=== PATIENT | female | born 1950 | race Caucasian/White ===

== ENCOUNTER 2016-10-03 09:12 | Emergency (ER) | payer MEDICARE, BC ==
[2016-10-03] MEDS: Sodium Chloride 0.9% 10 ML Syringe FLUSH PRN ×2 (09:30→10:46)
[2016-10-03] MEDS ORDERED: Morphine 2 MG/ML Syringe ONE ×2 (09:51→10:42)
[2016-10-03] MEDS: Morphine 2 MG/ML Syringe IVPUSH ONE ×2 (09:51→10:47)
[2016-10-03 10:34] VITALS: BP 161/79
[2016-10-03] MEDS ORDERED: Morphine 2 MG/ML Syringe IVPUSH ONE (10:44)
--- NOTE | 2016-10-04 07:26 | CR ---
DATE OF SERVICE: 10/03/16 CLINICAL DATA: Right hip pain after fall. PELVIS AND RIGHT HIP There is diffuse osteopenia. There are moderate osteoarthritic changes involving the hip joints bilaterally. There are mild degenerative changes involving the SI joints and symphysis pubis. No acute abnormalities. No focal lytic or blastic bone lesions. [id number] [facility]
--- NOTE | 2016-10-04 07:28 | CR ---
DATE OF SERVICE: 10/03/16 CLINICAL DATA: Right hip pain after fall. LUMBAR SPINE No priors. There is mild left-convexity rotoscoliosis of the mid lumbar spine. The vertebral bodies are of average height and in good alignment. No acute fracture or dislocation. No focal lytic or blastic bone lesions. There are disk margin spurs throughout the lumbar spine with disk space narrowing diffusely. There is facet joint hypertrophy in the mid and lower lumbar spine. There is calcification of the abdominal aorta. [id number] [facility]
--- NOTE | 2016-10-06 17:16 | EDM.PDOC ---
ED HPI GENERAL MEDICAL PROBLEM - General Chief Complaint: Lower Extremity Injury/Pain Stated Complaint: R hip pain Time Seen by Provider: 10/03/16 10:15 Source of Information: Reports: Patient, Family History Limitations: Reports: No Limitations - History of Present Illness INITIAL COMMENTS - FREE TEXT/NARRATIVE: This is a 66yo F who fell at her home and hurt her right hip and lower back area. Patient states she has a few scrapes but otherwise only has the lower back pain and right hip pain. Denies hitting her head. Onset: Sudden Location: Reports: Back, Pelvis, Lower Extremity, Right Severity: Mild Improves with: Reports: None Worsens with: Reports: Movement Associated Symptoms: Reports: No Other Symptoms - Related Data Allergies Allergy/AdvReac Type Severity Reaction Status Date / Time acetaminophen [From Percocet] Allergy Hives Verified 06/21/14 08:14 oxycodone HCl [From Percocet] Allergy Hives Verified 06/21/14 08:14 Home Meds: Home Meds Losartan Potassium 50 mg PO BID 06/21/14 [History] Metoprolol Tartrate 50 mg PO BID 06/21/14 [History] Simvastatin [Simvastatin] 20 mg PO BEDTIME 06/21/14 [History] Omeprazole Magnesium [Prilosec Otc] 20 mg PO ASDIRECTED PRN 08/09/15 [History] cloNIDine [Catapres] 0.1 mg PO Q12HR #60 tablet 08/09/15 [Rx] Past Medical History HEENT History: Reports: Epistaxis Cardiovascular History: Reports: Other (See Below) Other Cardiovascular History: Stents at age 46 Gastrointestinal History: Reports: Other (See Below) Musculoskeletal History: Reports: Arthritis Hematologic History: Reports: Anemia Social & Family History - Tobacco Use Smoking Status *Q: Never Smoker Second Hand Smoke Exposure: Yes - Alcohol Use Days Per Week of Alcohol Use: 2 Number of Drinks Per Day: 6 Total Drinks Per Week: 12 - Recreational Drug Use Recreational Drug Use: No ED ROS GENERAL - Review of Systems Review Of Systems: ROS reveals no pertinent complaints other than HPI. ED EXAM, GENERAL - Physical Exam Exam: See Below Exam Limited By: No Limitations General Appearance: Alert, WD/WN, Mild Distress Eye Exam: Bilateral Eye: PERRL Ears: Normal External Exam Nose: Normal Inspection Throat/Mouth: Normal Inspection Head: Atraumatic, Normocephalic Neck: Normal Inspection Respiratory/Chest: No Respiratory Distress, Lungs Clear Cardiovascular: Normal Peripheral Pulses, Regular Rate, Rhythm Peripheral Pulses: 2+: Dorsalis Pedis (L), Dorsalis Pedis (R) GI/Abdominal: Normal Bowel Sounds, Soft, Non-Tender Extremities: Normal Inspection, Normal Range of Motion, No Pedal Edema, Normal Capillary Refill, Leg Pain, Other (right lower back pain and right hip pain) Neurological: Alert, Oriented, CN II-XII Intact Course - Vital Signs Last Recorded V/S: Last Vital Signs Temp 36.1 C 10/03/16 10:33 Pulse 72 10/03/16 10:33 Resp 20 10/03/16 10:33 BP 161/79 H 10/03/16 10:33 Pulse Ox 99 10/03/16 10:33 - Orders/Labs/Meds Meds: Medications Discontinued Medications Generic Name Dose Route Start Last Admin Trade Name Freq PRN Reason Stop Dose Admin Morphine Sulfate 3 mg 10/03/16 09:42 10/03/16 10:47 Morphine IVPUSH 10/03/16 09:43 3 mg ONETIME ONE Administration Morphine Sulfate Confirm 10/03/16 09:51 10/03/16 10:49 Morphine Administered 10/03/16 09:52 Not Given Dose 4 mg .ROUTE .STK-MED ONE Morphine Sulfate Confirm 10/03/16 10:42 10/03/16 10:49 Morphine Administered 10/03/16 10:43 Not Given Dose 4 mg .ROUTE .STK-MED ONE Morphine Sulfate 3 mg 10/03/16 10:44 10/03/16 10:50 Morphine IVPUSH 10/03/16 10:45 Not Given ONETIME ONE Sodium Chloride 10 ml 10/03/16 09:42 10/03/16 10:46 Saline Flush FLUSH 10 ml ASDIRECTED PRN Administration Keep Vein Open Departure - Departure Time of Disposition: 12:00 Disposition: Home, Self-Care 01 Condition: Good Clinical Impression: Contusion Qualifiers: Encounter type: initial encounter Contusion area: hip Laterality: right Qualified Code(s): S70.01XA - Contusion of right hip, initial encounter Back pain Qualifiers: Back pain location: low back pain Chronicity: acute - Discharge Information Referrals: PCP,None [Primary Care Provider] - Forms: ED Department Discharge Additional Instructions: Take pain meds and muscle relaxer as prescribed. Weight bearing as tolerated. Use home crutches as needed for pain - Problem List Review Problem List Initiated/Reviewed/Updated: Yes - Assessment/Plan Plan: Counseled on supportive and conservative care and f/u. Discussed close monitoring and rest and f/u in clinic as needed.
== END 2016-10-03 11:34 | disposition home or self-care (01) ==
LOC: LB.ED 09:12
DX: S70.01XA Contusion of right hip, initial encounter (principal); M19.90 Unspecified osteoarthritis, unspecified site; Z95.5 Presence of coronary angioplasty implant and graft; Z86.2 Personal history of diseases of the blood and blood-forming organs and certain disorders involving the immune mechanism; Z88.6 Allergy status to analgesic agent; W19.XXXA Unspecified fall, initial encounter; Y92.009 Unspecified place in unspecified non-institutional (private) residence as the place of occurrence of the external cause
CPT/HCPCS: 72100; 73502; 96374; 99283; J2270; J7050

== ENCOUNTER 2017-06-08 07:29 | Day surgery (SDC) | payer MEDICARE, BC ==
[~2017-06-08 07:29] MED LIST: Metoclopramide 10 MG/2 ML SDV IV PRN; Sodium Chloride 0.9% 1,000 ML IV SCH; Sodium Chloride 0.9% 10 ML Syringe FLUSH PRN
[2017-06-08 13:28] VITALS: BP 153/77
--- NOTE | 2017-06-08 18:05 | OR ---
DATE OF OPERATION: 06/08/2017 PREOPERATIVE DIAGNOSIS: Screening colonoscopy. POSTOPERATIVE DIAGNOSIS: 1. Moderate to severe sigmoid diverticulosis. 2. Otherwise normal colonoscopy. OPERATION: Screening colonoscopy. COMPLICATIONS: None. DRAINS: None. SPECIMENS: None. ESTIMATED BLOOD LOSS: Zero. ANESTHESIA: General propofol anesthesia. INDICATION: Ms. Hickman is a 66-year-old female here for a screening colonoscopy. She is of average risk and is currently asymptomatic. The above-mentioned procedure was explained. The risks, benefits, and complications were explained. The patient understood and agreed and was brought to the operating room. DESCRIPTION OF PROCEDURE: The patient was brought to the operating room, placed in the left lateral decubitus position on the operating room table. Satisfactory general propofol anesthesia was administered. We began by performing a rectal examination which was within normal limits. I then placed the endoscope by finger introduction into the rectum and subsequently advanced to the level of the cecum. This proved to be quite difficult due to tortuosity and external compression of the colon by her body habitus. However, with manipulation in the supine position and we were able to pass the endoscope around to the cecum and this was identified by the appendiceal orifice, the cecal strap as well as the ileocecal valve. Next, careful evaluation of the mucosa was performed on withdrawal. There were no telangiectasias, no polyps, or no neoplastic growths. There was moderate to severe diverticulosis involving the distal descending colon up to the rectosigmoid junction. There was no active bleeding identified. Next, we performed a retroflexion maneuver within the rectum and this was within normal limits. The colon was decompressed and the endoscope was withdrawn. The patient tolerated the procedure well. There were no complications. Instrument count was correct. The patient was awoken in the OR and taken to the PACU for recovery. Recommend a followup colonoscopy in 5-to-10 years. GOMEZ/ALEKSANDAR /[id number]
== END 2017-06-08 11:30 | disposition home or self-care (01) ==
LOC: LB.SDS 07:29
PROVIDERS: ATTEND Surgery
DX: Z12.11 Encounter for screening for malignant neoplasm of colon (principal); K57.30 Diverticulosis of large intestine without perforation or abscess without bleeding; I10 Essential (primary) hypertension; Z79.899 Other long term (current) drug therapy
CPT/HCPCS: G0121; J2765; J7040; J7030

== ENCOUNTER → 2018-12-19 | Outpatient (CLI) | payer MEDICARE, OTHER ==
--- NOTE | 2018-12-22 16:49 | US ---
DATE OF SERVICE: 12/19/18 CLINICAL DATA: Other abnormal and inconclusive findings on diagnostic imaging of breast RIGHT BREAST ULTRASOUND: A targeted exam was performed. No masses. No abnormal fluid collections. No foci of suspicious echogenicity. No suspicious calcifications. IMPRESSION: Negative right breast ultrasound. ACR 1 - Negative Ultrasound. [id number] [facility]
--- NOTE | 2018-12-22 16:54 | MY ---
DATE OF SERVICE: 12/19/18 CLINICAL DATA: Other abnormal and inconclusive findings on diagnostic imaging of breast ADDITIONAL VIEWS RIGHT BREAST: A focal spot compression craniocaudal view of the right breast and a focal spot compression mediolateral oblique view were obtained. The new nodular density in the upper outer portion of the right breast largely dissipates with focal spot compression. No further work-up is indicated at this time. A 6 month follow-up mammogram of the right breast is recommended to confirm stability. ACR 3 - Probably benign Mammogram - Short interval follow-up suggested. [id number] [facility]
== END ==
LOC: LB.MAM 09:33
PROVIDERS: ATTEND Nurse Practitioner Family
DX: R92.8 Other abnormal and inconclusive findings on diagnostic imaging of breast (principal)
CPT/HCPCS: 76641-RT; 77065-RT

== ENCOUNTER 2019-09-18 13:00 | Observation (INO) | payer MEDICARE, OTHER ==
[2019-09-18] MEDS ORDERED: Sodium Chloride 0.9% 1,000 ML IV SCH (15:30)
[2019-09-18] MEDS ORDERED: Sodium Chloride 0.45% with KCl 1,000 ML IV SCH (15:30)
[2019-09-18] MEDS ORDERED: Acetaminophen 500 MG Tab ONE (16:00)
[2019-09-18] MEDS: Acetaminophen 325 MG Tab PO PRN ×2 (16:00→21:19)
[2019-09-18] MEDS ORDERED: Miconazole 2% Crm 30 GM Tube TOP SCH (21:30)
[2019-09-19 09:05] VITALS: BP 153/71; PULSE 110
--- NOTE | 2019-09-19 11:44 | PCM.PN ---
- General Info Date of Service: 09/18/19 Admission Dx/Problem (Free Text): Nalini presents from clinic for IV fluids due to her continued UTI. She was started on keflex, then called 3 days later with culture results and was switched to cefdinir. She has taken 2 doses of cefdinir. She is agreeable to obs admission overnight for hydration. Plan will be to DC in the AM. - Review of Systems General: Reports: No Symptoms HEENT: Reports: No Symptoms Pulmonary: Reports: No Symptoms Cardiovascular: Reports: No Symptoms Gastrointestinal: Reports: No Symptoms Genitourinary: Reports: No Symptoms (patient denies any pain), Retention Skin: Reports: No Symptoms Neurological: Reports: No Symptoms - Patient Data Vitals - Most Recent: Last Vital Signs Temp 97.2 F 09/19/19 09:00 Pulse 110 H 09/19/19 09:00 Resp 16 09/19/19 09:00 BP 153/71 H 09/19/19 09:00 Pulse Ox 99 09/19/19 09:00 I&O - Last 24 Hours: Intake & Output 09/18/19 09/19/19 09/19/19 22:59 06:59 14:59 Intake Total 60 1934 Output Total 200 1600 Balance -140 334 Lab Results Last 24 Hours: Laboratory Results - last 24 hr 09/18/19 09/18/19 09/18/19 Range/Units 13:04 13:57 13:57 WBC 5.7 (4.0-11.0) K/uL RBC 3.45 L (3.80-5.80) M/uL Hgb 10.0 L (11.5-16.5) g/dL Hct 30.2 L (37.0-47.0) % MCV 88 (76-96) fL MCH 29.0 (27.0-32.0) pg MCHC 33.1 (31.0-35.0) g/dL RDW 14.7 (11.0-16.0) % Plt Count 289 D (150-500) K/uL MPV 9.1 (6.0-10.0) fL Neut % (Auto) 65.9 (45.0-70.0) % Lymph % (Auto) 19.8 L (20.0-40.0) % [place] % (Auto) 13.5 H (3.0-10.0) % Eos % (Auto) 0.4 L (1.0-5.0) % Baso % (Auto) 0.4 (0.0-0.5) % Neut # (Auto) 3.77 (2.00-7.50) K/uL Lymph # (Auto) 1.13 L (1.50-4.00) K/uL [place] # (Auto) 0.77 (0.20-0.80) K/uL Eos # (Auto) 0.02 L (0.04-0.40) K/uL Baso # (Auto) 0.02 (0.02-0.10) K/uL Sodium 130 L (136-145) mmol/L Potassium 3.4 L D (3.5-5.1) mmol/L Chloride 93 L (98-107) mmol/L Carbon Dioxide 25.0 (21.0-32.0) mmol/L Anion Gap 15.4 H (5.0-15.0) mmol/L BUN 14 D (8-26) mg/dL Creatinine 1.74 H D (0.55-1.02) mg/dL Est Cr Clr Drug Dosing TNP Estimated GFR (MDRD) 29 L (>60) MLS/MIN BUN/Creatinine Ratio 8.0 (6-25) Glucose 94 (74-100) mg/dL Lactic Acid (0.4-2.0) mmol/L Calcium 8.9 (8.5-10.1) mg/dL Total Bilirubin (0.0-1.0) mg/dL AST (15-37) U/L ALT (12-78) U/L Alkaline Phosphatase (46-116) U/L Total Protein (6.4-8.2) g/dL Albumin (3.4-5.0) g/dL Globulin (2.2-4.2) g/dL Albumin/Globulin Ratio (0.8-2.0) Urine Color Yellow Urine Appearance Clear (CLEAR) Urine pH 5.5 (5.0-8.0) Ur Specific [place] 1.010 (1.003-1.030) Urine Protein Negative (NEGATIVE) mg/dL Urine Glucose (UA) Negative (NEGATIVE) mg/dL Urine Ketones Negative (NEGATIVE) mg/dL Urine Occult Blood Negative (NEGATIVE) Urine Nitrite Negative (NEGATIVE) Urine Bilirubin Negative (NEGATIVE) Urine Urobilinogen 0.2 (0.2-1.0) E.U./dL Ur Leukocyte Esterase Small H (NEGATIVE) Urine RBC 0-5 H /HPF Urine WBC 40-50 H /HPF Ur Epithelial Cells Few /HPF Urine Bacteria Few /HPF Urine Mucus Rare /HPF 09/18/19 09/19/19 09/19/19 Range/Units 14:10 07:15 07:15 WBC 4.3 D (4.0-11.0) K/uL RBC 2.99 L (3.80-5.80) M/uL Hgb 8.7 L (11.5-16.5) g/dL Hct 26.4 L (37.0-47.0) % MCV 88 (76-96) fL MCH 29.1 (27.0-32.0) pg MCHC 33.0 (31.0-35.0) g/dL RDW 14.4 (11.0-16.0) % Plt Count 246 (150-500) K/uL MPV 8.8 (6.0-10.0) fL Neut % (Auto) 61.7 (45.0-70.0) % Lymph % (Auto) 21.2 (20.0-40.0) % [place] % (Auto) 16.0 H (3.0-10.0) % Eos % (Auto) 0.9 L (1.0-5.0) % Baso % (Auto) 0.2 (0.0-0.5) % Neut # (Auto) 2.62 (2.00-7.50) K/uL Lymph # (Auto) 0.90 L (1.50-4.00) K/uL [place] # (Auto) 0.68 (0.20-0.80) K/uL Eos # (Auto) 0.04 (0.04-0.40) K/uL Baso # (Auto) 0.01 L (0.02-0.10) K/uL Sodium 135 L (136-145) mmol/L Potassium 3.5 (3.5-5.1) mmol/L Chloride 100 (98-107) mmol/L Carbon Dioxide 24.1 (21.0-32.0) mmol/L Anion Gap 14.4 (5.0-15.0) mmol/L BUN 13 (8-26) mg/dL Creatinine 1.32 H D (0.55-1.02) mg/dL Est Cr Clr Drug Dosing TNP Estimated GFR (MDRD) 40 L (>60) MLS/MIN BUN/Creatinine Ratio 9.8 (6-25) Glucose 82 (74-100) mg/dL Lactic Acid 0.9 (0.4-2.0) mmol/L Calcium 8.3 L (8.5-10.1) mg/dL Total Bilirubin 0.2 D (0.0-1.0) mg/dL AST 20 (15-37) U/L ALT 12 (12-78) U/L Alkaline Phosphatase 69 (46-116) U/L Total Protein 6.4 (6.4-8.2) g/dL Albumin 2.4 L (3.4-5.0) g/dL Globulin 4.0 (2.2-4.2) g/dL Albumin/Globulin Ratio 0.6 L (0.8-2.0) Urine Color Urine Appearance (CLEAR) Urine pH (5.0-8.0) Ur Specific [place] (1.003-1.030) Urine Protein (NEGATIVE) mg/dL Urine Glucose (UA) (NEGATIVE) mg/dL Urine Ketones (NEGATIVE) mg/dL Urine Occult Blood (NEGATIVE) Urine Nitrite (NEGATIVE) Urine Bilirubin (NEGATIVE) Urine Urobilinogen (0.2-1.0) E.U./dL Ur Leukocyte Esterase (NEGATIVE) Urine RBC /HPF Urine WBC /HPF Ur Epithelial Cells /HPF Urine Bacteria /HPF Urine Mucus /HPF Med Orders - Current: Current Medications Acetaminophen (Tylenol) 500 mg PO Q4H PRN PRN Reason: analgesia/fever Last Admin: 09/18/19 21:19 Dose: 500 mg Documented by: Sodium Chloride (Normal Saline) 1,000 mls @ 125 mls/hr IV ASDIRECTED [facility] Last Admin: 09/19/19 01:05 Dose: 125 mls/hr Documented by: Discontinued Medications Acetaminophen (Tylenol Extra Strength) Confirm Administered Dose 500 mg .ROUTE .STK-MED ONE Stop: 09/18/19 16:01 Last Admin: 09/18/19 16:02 Dose: 500 mg Documented by: Potassium Chloride/Sodium Chloride (1/2 Ns With 20 Meq Kcl) 1,000 mls @ 125 mls/hr IV ASDIRECTED KATI Stop: 09/18/19 23:29 Last Admin: 09/18/19 17:01 Dose: 125 mls/hr Documented by: Miconazole (Miconazole 2% Crm) 30 gm TOP BID KATI Last Admin: 09/19/19 05:05 Dose: Not Given Documented by: Sepsis Event Note - Evaluation Sepsis Screening Result: No Definite Risk - Focused Exam Vital Signs: Vital Signs Temp Pulse Resp BP Pulse Ox 09/19/19 09:00 97.2 F 110 H 16 153/71 H 99 09/19/19 05:07 98.1 F 78 18 169/74 H 99 Date Exam was Performed: 09/19/19 Time Exam was Performed: 11:39 - Problem List Review Problem List Initiated/Reviewed/Updated: Yes - My Orders Last 24 Hours: My Active Orders 09/18/19 14:15 Patient Status [ADT] Routine 09/18/19 15:19 Ambulate [RC] PER UNIT ROUTINE May Shower [RC] ASDIRECTED Up ad Vivi [RC] ASDIRECTED Acetaminophen [Tylenol] 500 mg PO Q4H PRN Resuscitation Status Routine 09/18/19 15:20 Vital Signs [RC] Q4H 09/18/19 15:30 Sodium Chloride 0.9% [Normal Saline] 1,000 ml IV ASDIRECTED 09/18/19 15:35 Intake and Output [RC] 18 09/18/19 Dinner Regular Diet [DIET]
== END 2019-09-19 12:45 | disposition home or self-care (01) ==
LOC: LB.CLINIC 13:00 → LB.MS 15:00
PROVIDERS: ADMIT Registered Nurse; ATTEND Registered Nurse
DX: N39.0 Urinary tract infection, site not specified (principal); M62.81 Muscle weakness (generalized); M54.9 Dorsalgia, unspecified; R34 Anuria and oliguria; I25.10 Atherosclerotic heart disease of native coronary artery without angina pectoris; G89.29 Other chronic pain; M54.2 Cervicalgia; M25.561 Pain in right knee; K21.9 Gastro-esophageal reflux disease without esophagitis; I10 Essential (primary) hypertension; E78.00 Pure hypercholesterolemia, unspecified; Z88.5 Allergy status to narcotic agent; Z79.899 Other long term (current) drug therapy
CPT/HCPCS: 36415; 80048; 80053; 81001; 83605; 85025; 87040; A9270; J3480; J7030; 96360; 96361; 99219; G0378; G0379

== ENCOUNTER 2020-02-09 09:18 | Inpatient (IN) | payer MEDICARE, OTHER ==
[2020-02-09] MEDS ORDERED: Acetaminophen/HYDROcodone 325-5 MG Tab ONE (15:46)
[2020-02-09] MEDS ORDERED: Tuberculin, PPD 5 Units/0.1 ML 1 ML MDV IDERM ONE (16:32)
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
[2020-02-09] MEDS: Simvastatin 20 MG Tab PO SCH (20:28)
[2020-02-09] MEDS: Naproxen 250 MG Tab PO PRN (20:28)
[2020-02-09] MEDS: Losartan 50 MG Tab PO SCH (20:28)
[2020-02-09] MEDS: Acetaminophen/HYDROcodone 325-5 MG Tab PO PRN (20:29)
[2020-02-09] MEDS: Metoprolol Tartrate 50 MG Tab PO SCH (20:31)
[2020-02-10] MEDS: Acetaminophen/HYDROcodone 325-5 MG Tab PO PRN ×3 (03:45→16:04)
[2020-02-10] MEDS ORDERED: cefTRIAXone 2 GM Vial IV SCH (08:00)
[2020-02-10] MEDS: Ergocalciferol (Vitamin D2) 1.25 MG Cap PO SCH (08:27)
[2020-02-10] MEDS: amLODIPine 5 MG Tab PO SCH (08:27)
[2020-02-10] MEDS: Pantoprazole 40 MG Tab.CR PO SCH (08:27)
[2020-02-10] MEDS: Metoprolol Tartrate 50 MG Tab PO SCH ×2 (08:28→19:54)
[2020-02-10] MEDS: Losartan 50 MG Tab PO SCH ×2 (08:28→19:55)
[2020-02-10] MEDS: Aspirin 325 MG Tab.EC PO SCH (08:28)
[2020-02-10] MEDS: traMADol 50 MG Tab PO PRN ×2 (08:57→18:54)
[2020-02-10] MEDS: cefTRIAXone 2 GM in Sodium Chloride 0.9% 50 ML IV SCH (09:01)
[2020-02-10] MEDS: Lactobacillus Acidophilus/Lactobacillus Sporogenes (Probiotic) Tab PO SCH ×2 (12:09→19:55)
[2020-02-10] MEDS: Loratadine 10 MG Tab PO SCH (12:09)
[2020-02-10] MEDS: Pseudoephedrine 120 MG Tab.ER PO SCH ×2 (16:03→18:51)
[2020-02-10] MEDS: Naproxen 250 MG Tab PO PRN (19:55)
[2020-02-10] MEDS: Simvastatin 20 MG Tab PO SCH (19:57)
[2020-02-11] MEDS: traMADol 50 MG Tab PO PRN ×2 (02:30→08:38)
[2020-02-11] MEDS ORDERED: Vitamin A 10,000 Unit Cap PO SCH ×2 (08:00→11:30)
[2020-02-11] MEDS: Pantoprazole 40 MG Tab.CR PO SCH (08:03)
[2020-02-11] MEDS: Loratadine 10 MG Tab PO SCH (08:38)
[2020-02-11] MEDS: Aspirin 325 MG Tab.EC PO SCH (08:38)
[2020-02-11] MEDS: Losartan 50 MG Tab PO SCH ×2 (08:38→20:59)
[2020-02-11] MEDS: amLODIPine 5 MG Tab PO SCH (08:39)
[2020-02-11] MEDS: Metoprolol Tartrate 50 MG Tab PO SCH ×2 (08:39→20:59)
[2020-02-11] MEDS: cefTRIAXone 2 GM in Sodium Chloride 0.9% 50 ML IV SCH (08:56)
[2020-02-11] MEDS: Pseudoephedrine 120 MG Tab.ER PO SCH (10:20)
[2020-02-11] MEDS: Acetaminophen/HYDROcodone 325-5 MG Tab PO PRN ×2 (10:55→17:10)
[2020-02-11] MEDS: Zinc (Zinc Gluconate) 50 MG Tab PO SCH (12:18)
[2020-02-11] MEDS: Lactobacillus Acidophilus/Lactobacillus Sporogenes (Probiotic) Tab PO SCH ×2 (12:18→20:59)
[2020-02-11] MEDS: Ascorbic Acid 500 MG Tab PO SCH (12:19)
[2020-02-11] MEDS: Cholecalciferol (Vitamin D3) 25 MCG Tab PO SCH (12:19)
[2020-02-11] MEDS: Vitamin A 10,000 Unit Cap PO SCH (20:57)
[2020-02-11] MEDS: Simvastatin 20 MG Tab PO SCH (20:58)
[2020-02-11] MEDS: Naproxen 250 MG Tab PO PRN (21:00)
[2020-02-12] MEDS: traMADol 50 MG Tab PO PRN ×2 (02:08→13:40)
[2020-02-12] MEDS: Acetaminophen/HYDROcodone 325-5 MG Tab PO PRN ×2 (07:52→19:35)
[2020-02-12] MEDS: Pantoprazole 40 MG Tab.CR PO SCH (07:53)
[2020-02-12] MEDS: Ascorbic Acid 500 MG Tab PO SCH (07:55)
[2020-02-12] MEDS: Loratadine 10 MG Tab PO SCH (07:55)
[2020-02-12] MEDS: Zinc (Zinc Gluconate) 50 MG Tab PO SCH (07:55)
[2020-02-12] MEDS: Aspirin 325 MG Tab.EC PO SCH (07:55)
[2020-02-12] MEDS: Cholecalciferol (Vitamin D3) 25 MCG Tab PO SCH (07:56)
[2020-02-12] MEDS: amLODIPine 5 MG Tab PO SCH (07:58)
[2020-02-12] MEDS: Losartan 50 MG Tab PO SCH ×2 (07:58→19:14)
[2020-02-12] MEDS: Metoprolol Tartrate 50 MG Tab PO SCH ×2 (07:59→19:14)
[2020-02-12] MEDS: cefTRIAXone 2 GM in Sodium Chloride 0.9% 50 ML IV SCH (08:18)
[2020-02-12] MEDS: Vitamin A 10,000 Unit Cap PO SCH (10:20)
[2020-02-12] MEDS: Lactobacillus Acidophilus/Lactobacillus Sporogenes (Probiotic) Tab PO SCH ×2 (12:01→19:11)
[2020-02-12] MEDS: Simvastatin 20 MG Tab PO SCH (19:15)
[2020-02-12] MEDS: Naproxen 250 MG Tab PO PRN (19:35)
[2020-02-13] MEDS: traMADol 50 MG Tab PO PRN ×2 (01:20→14:33)
[2020-02-13] MEDS: Pantoprazole 40 MG Tab.CR PO SCH (07:52)
[2020-02-13] MEDS: cefTRIAXone 2 GM in Sodium Chloride 0.9% 50 ML IV SCH (07:53)
[2020-02-13] MEDS: Acetaminophen/HYDROcodone 325-5 MG Tab PO PRN ×2 (07:57→20:44)
[2020-02-13] MEDS: Losartan 50 MG Tab PO SCH ×2 (08:02→20:43)
[2020-02-13] MEDS: Loratadine 10 MG Tab PO SCH (08:02)
[2020-02-13] MEDS: Aspirin 325 MG Tab.EC PO SCH (08:02)
[2020-02-13] MEDS: Metoprolol Tartrate 50 MG Tab PO SCH ×2 (08:03→20:42)
[2020-02-13] MEDS: amLODIPine 5 MG Tab PO SCH (08:03)
[2020-02-13] MEDS: Lactobacillus Acidophilus/Lactobacillus Sporogenes (Probiotic) Tab PO SCH ×2 (12:03→20:43)
[2020-02-13] MEDS: Zinc (Zinc Gluconate) 50 MG Tab PO SCH (12:03)
[2020-02-13] MEDS: Ascorbic Acid 500 MG Tab PO SCH (12:03)
[2020-02-13] MEDS: Cholecalciferol (Vitamin D3) 25 MCG Tab PO SCH (12:03)
[2020-02-13] MEDS: Vitamin A 10,000 Unit Cap PO SCH (12:03)
[2020-02-13] MEDS: Simethicone 80 MG Tab.Chew PO PRN (18:00)
[2020-02-13] MEDS: Naproxen 250 MG Tab PO PRN (20:42)
[2020-02-13] MEDS: Simvastatin 20 MG Tab PO SCH (20:43)
[2020-02-14] MEDS: traMADol 50 MG Tab PO PRN ×2 (00:58→14:15)
[2020-02-14] MEDS: Acetaminophen/HYDROcodone 325-5 MG Tab PO PRN ×2 (08:02→19:51)
[2020-02-14] MEDS: Losartan 50 MG Tab PO SCH ×2 (08:03→19:51)
[2020-02-14] MEDS: amLODIPine 5 MG Tab PO SCH (08:03)
[2020-02-14] MEDS: Loratadine 10 MG Tab PO SCH (08:04)
[2020-02-14] MEDS: Metoprolol Tartrate 50 MG Tab PO SCH ×2 (08:04→19:52)
[2020-02-14] MEDS: Aspirin 325 MG Tab.EC PO SCH (08:04)
[2020-02-14] MEDS: Pantoprazole 40 MG Tab.CR PO SCH (08:04)
[2020-02-14] MEDS: cefTRIAXone 2 GM in Sodium Chloride 0.9% 50 ML IV SCH (08:05)
[2020-02-14] MEDS: Sodium Chloride 0.9% 10 ML Syringe FLUSH SCH ×3 (08:05→20:30)
[2020-02-14] MEDS: Vitamin A 10,000 Unit Cap PO SCH (11:33)
[2020-02-14] MEDS: Ascorbic Acid 500 MG Tab PO SCH (11:46)
[2020-02-14] MEDS: Lactobacillus Acidophilus/Lactobacillus Sporogenes (Probiotic) Tab PO SCH ×2 (11:46→19:51)
[2020-02-14] MEDS: Cholecalciferol (Vitamin D3) 25 MCG Tab PO SCH (11:46)
[2020-02-14] MEDS: Zinc (Zinc Gluconate) 50 MG Tab PO SCH (11:46)
[2020-02-14] MEDS: Simvastatin 20 MG Tab PO SCH (19:51)
[2020-02-14] MEDS: Naproxen 250 MG Tab PO PRN (19:52)
[2020-02-15] MEDS: traMADol 50 MG Tab PO PRN ×2 (01:12→14:46)
[2020-02-15] MEDS: Sodium Chloride 0.9% 10 ML Syringe FLUSH SCH ×3 (06:17→22:02)
[2020-02-15] MEDS: cefTRIAXone 2 GM in Sodium Chloride 0.9% 50 ML IV SCH (07:54)
[2020-02-15] MEDS: Losartan 50 MG Tab PO SCH ×2 (08:02→19:43)
[2020-02-15] MEDS: Pantoprazole 40 MG Tab.CR PO SCH (08:02)
[2020-02-15] MEDS: Loratadine 10 MG Tab PO SCH (08:03)
[2020-02-15] MEDS: Metoprolol Tartrate 50 MG Tab PO SCH ×2 (08:03→19:44)
[2020-02-15] MEDS: amLODIPine 5 MG Tab PO SCH (08:03)
[2020-02-15] MEDS: Aspirin 325 MG Tab.EC PO SCH (08:03)
[2020-02-15] MEDS: Acetaminophen/HYDROcodone 325-5 MG Tab PO PRN ×2 (08:04→19:46)
[2020-02-15] MEDS: Vitamin A 10,000 Unit Cap PO SCH (11:21)
[2020-02-15] MEDS: Lactobacillus Acidophilus/Lactobacillus Sporogenes (Probiotic) Tab PO SCH ×2 (11:29→19:43)
[2020-02-15] MEDS: Cholecalciferol (Vitamin D3) 25 MCG Tab PO SCH (11:29)
[2020-02-15] MEDS: Ascorbic Acid 500 MG Tab PO SCH (11:29)
[2020-02-15] MEDS: Zinc (Zinc Gluconate) 50 MG Tab PO SCH (11:29)
[2020-02-15] MEDS: Simvastatin 20 MG Tab PO SCH (19:45)
[2020-02-15] MEDS: Naproxen 250 MG Tab PO PRN (19:46)
[2020-02-16] MEDS: traMADol 50 MG Tab PO PRN ×2 (02:13→14:28)
[2020-02-16] MEDS: Sodium Chloride 0.9% 10 ML Syringe FLUSH SCH ×3 (05:58→22:00)
[2020-02-16] MEDS: Losartan 50 MG Tab PO SCH ×2 (07:48→19:46)
[2020-02-16] MEDS: Metoprolol Tartrate 50 MG Tab PO SCH ×2 (07:48→19:47)
[2020-02-16] MEDS: Loratadine 10 MG Tab PO SCH (07:48)
[2020-02-16] MEDS: amLODIPine 5 MG Tab PO SCH (07:48)
[2020-02-16] MEDS: Pantoprazole 40 MG Tab.CR PO SCH (07:48)
[2020-02-16] MEDS: Aspirin 325 MG Tab.EC PO SCH (07:48)
--- NOTE | 2020-02-16 08:22 | PCM.PN ---
- General Info Date of Service: 02/16/20 Subjective Update: Patient doing well, improved mobility. Patient still requires assistance for transfers but improving in strength. She note some swelling of the left leg throughout the day while sitting but resolves when lying down. She also notes increased BP the past few days. She denies any other concerns or issues. Functional Status: Reports: Pain Controlled, Tolerating Diet, Other (mobile with assistance) - Review of Systems General: Reports: Weakness HEENT: Reports: No Symptoms Pulmonary: Reports: No Symptoms Cardiovascular: Reports: No Symptoms Gastrointestinal: Reports: No Symptoms Musculoskeletal: Reports: Other (hip pain) Skin: Reports: Bruising (improving) Psychiatric: Reports: No Symptoms - Patient Data Vitals - Most Recent: Last Vital Signs Temp 36.1 C 02/16/20 07:52 Pulse 78 02/16/20 07:52 Resp 16 02/16/20 07:52 BP 156/74 H 02/16/20 07:52 Pulse Ox 99 02/16/20 07:52 Weight - Most Recent: 86.636 kg I&O - Last 24 Hours: Intake & Output 02/15/20 02/16/20 02/16/20 22:59 06:59 14:59 Intake Total 100 Balance 100 Med Orders - Current: Current Medications Hydrocodone Bitart/Acetaminophen ([place] 325-5 Mg) 1 - 2 tab PO Q6HR PRN PRN Reason: Pain (moderate 4-6) Last Admin: 02/15/20 19:46 Dose: 2 tab Documented by: Amlodipine Besylate (Norvasc) 5 mg PO DAILY [facility] Last Admin: 02/16/20 07:48 Dose: 5 mg Documented by: Ascorbic Acid (Vitamin C) 500 mg PO 1100 [facility] Last Admin: 02/15/20 11:29 Dose: 500 mg Documented by: Aspirin (Ecotrin) 325 mg PO DAILY [facility] Last Admin: 02/16/20 07:48 Dose: 325 mg Documented by: Cholecalciferol (Vitamin D3) 50 mcg PO 1100 [facility] Last Admin: 02/15/20 11:29 Dose: 50 mcg Documented by: Ergocalciferol (Vitamin D2) 1.25 mg PO Q7D [facility] Last Admin: 02/10/20 08:27 Dose: 1.25 mg Documented by: Ceftriaxone Sodium 2 gm/ (Sodium Chloride) 50 mls @ 100 mls/hr IV DAILY [facility] Last Admin: 02/15/20 07:54 Dose: 100 mls/hr Documented by: Lactobacillus Acidophilus (Acidolphilus Extra Strength) 1 tab PO BID@1200,2000 [facility] Last Admin: 02/15/20 19:43 Dose: 1 tab Documented by: Loratadine (Claritin) 10 mg PO DAILY [facility] Last Admin: 02/16/20 07:48 Dose: 10 mg Documented by: Losartan Potassium (Cozaar) 50 mg PO BID [facility] Last Admin: 02/16/20 07:48 Dose: 50 mg Documented by: Metoprolol Tartrate (Lopressor) 50 mg PO BID [facility] Last Admin: 02/16/20 07:48 Dose: 50 mg Documented by: Naproxen (Naprosyn) 250 mg PO Q12HR PRN PRN Reason: Pain Last Admin: 02/15/20 19:46 Dose: 250 mg Documented by: Pantoprazole Sodium (Protonix) 40 mg PO ACBREAKFAST [facility] Last Admin: 02/16/20 07:48 Dose: 40 mg Documented by: Senna/Docusate Sodium (Senna Plus) 1 tab PO BID PRN PRN Reason: Constipation Simethicone (Simethicone) 80 mg PO Q6H PRN PRN Reason: Gas Last Admin: 02/13/20 18:00 Dose: 80 mg Documented by: Simvastatin (Zocor) 20 mg PO BEDTIME [facility] Last Admin: 02/15/20 19:45 Dose: 20 mg Documented by: Sodium Chloride (Saline Flush) 10 ml FLUSH Q8HR [facility] Last Admin: 02/16/20 05:58 Dose: 10 ml Documented by: Tramadol HCl (Ultram) 50 mg PO Q6H PRN PRN Reason: Pain (moderate 4-6) Last Admin: 02/16/20 02:13 Dose: 50 mg Documented by: Vitamin A (Vitamin A) 10,000 units PO 1100 [facility] Last Admin: 02/15/20 11:21 Dose: Not Given Documented by: Zinc Gluconate (Zinc) 50 mg PO 1100 [facility] Last Admin: 02/15/20 11:29 Dose: 50 mg Documented by: Discontinued Medications Hydrocodone Bitart/Acetaminophen ([place]ell 325-5 Mg) Confirm Administered Dose 2 tab .ROUTE .[facility]-MED ONE Stop: 12/28/20 15:47 Last Admin: 02/09/20 17:02 Dose: Not Given Documented by: Ascorbic Acid (Vitamin C) 500 mg PO DAILY [facility] Last Admin: 02/12/20 07:55 Dose: 500 mg Documented by: Cholecalciferol (Vitamin D3) 50 mcg PO DAILY [facility] Last Admin: 02/12/20 07:56 Dose: 50 mcg Documented by: Pseudoephedrine HCl (Sudafed 12 Hour) 120 mg PO BIDMEALS [facility] Last Admin: 02/11/20 10:20 Dose: Not Given Documented by: Senna/Docusate Sodium (Senna Plus) 1 tab PO BID [facility] Last Admin: 02/13/20 08:11 Dose: Not Given Documented by: Tuberculin PPD (Aplisol) 5 unit IDERM ONETIME ONE Stop: 02/09/20 16:33 Last Admin: 02/09/20 17:47 Dose: 5 unit Documented by: Vitamin A (Vitamin A) 8,000 units PO DAILY [facility] Last Admin: 02/11/20 21:03 Dose: Not Given Documented by: Vitamin A (Vitamin A) 10,000 units PO DAILY [facility] Last Admin: 02/12/20 10:20 Dose: Not Given Documented by: Zinc Gluconate (Zinc) 50 mg PO DAILY [facility] Last Admin: 02/12/20 07:55 Dose: 50 mg Documented by: - Exam General: Alert, Oriented, Cooperative HEENT: Pupils Equal, Pupils Reactive, EOMI Neck: Supple Lungs: Clear to Auscultation, Normal Respiratory Effort Cardiovascular: Regular Rate, Regular Rhythm GI/Abdominal Exam: Normal Bowel Sounds Extremities: Normal Inspection Skin: Warm, Dry, Intact Neurological: No New Focal Deficit Psy/Mental Status: Alert, Normal Affect, Normal Mood Sepsis Event Note - Evaluation Sepsis Screening Result: No Definite Risk - Focused Exam Vital Signs: Vital Signs Temp Pulse Pulse Resp BP BP Pulse Ox 02/16/20 07:52 36.1 C 78 16 156/74 H 99 02/16/20 07:48 78 156/74 H - Problem List & Annotations (1) History of arthroplasty SNOMED Code(s): 729175061, 087081188, 290472575 Code(s): Z98.890 - OTHER SPECIFIED POSTPROCEDURAL STATES Status: Acute Priority: High Current Visit: Yes (2) Infection of prosthetic hip joint SNOMED Code(s): 412994222 Code(s): T84.59XA - INFECT/INFLM REACTION DUE TO OTH INTERNAL JOINT PROSTH, INIT; Z96.649 - PRESENCE OF UNSPECIFIED ARTIFICIAL HIP JOINT Status: Acute Priority: High Current Visit: Yes (3) Generalized weakness SNOMED Code(s): 21797701 Code(s): R53.1 - WEAKNESS Status: Acute Priority: High Current Visit: Yes - Problem List Review Problem List Initiated/Reviewed/Updated: Yes - My Orders Last 24 Hours: My Active Orders 02/17/20 08:00 amLODIPine [Norvasc] 7.5 mg PO DAILY - Plan Plan:: Continue on current IV antibiotics and management. PT/OT management as well. F/u plan of care and pain management. 02/16/20 Patient will continue on current IV antibiotics as scheduled for the next 6 weeks. PT/OT for ambulation and f/u progress. Adjust amlodipine to 7.5mg daily due to elevated BP. Will check BP later today and if elevated to give an extra 2.5mg dose of amlodipine to the current 5 mg given. F/u BP as routine.
[2020-02-16] MEDS: Acetaminophen/HYDROcodone 325-5 MG Tab PO PRN ×2 (08:59→19:49)
[2020-02-16] MEDS: cefTRIAXone 2 GM in Sodium Chloride 0.9% 50 ML IV SCH (09:20)
[2020-02-16] MEDS ORDERED: amLODIPine 2.5 MG Tab PO ONE (11:37)
[2020-02-16] MEDS ORDERED: amLODIPine 2.5 MG Tab ONE (11:46)
[2020-02-16] MEDS: Ascorbic Acid 500 MG Tab PO SCH (11:48)
[2020-02-16] MEDS: Lactobacillus Acidophilus/Lactobacillus Sporogenes (Probiotic) Tab PO SCH ×2 (11:48→19:46)
[2020-02-16] MEDS: Zinc (Zinc Gluconate) 50 MG Tab PO SCH (11:48)
[2020-02-16] MEDS: Cholecalciferol (Vitamin D3) 25 MCG Tab PO SCH (11:48)
[2020-02-16] MEDS: Vitamin A 10,000 Unit Cap PO SCH (13:34)
[2020-02-16] MEDS: Naproxen 250 MG Tab PO PRN (19:48)
[2020-02-16] MEDS: Simvastatin 20 MG Tab PO SCH (19:48)
[2020-02-17] MEDS: traMADol 50 MG Tab PO PRN ×2 (02:16→14:15)
[2020-02-17] MEDS: Sodium Chloride 0.9% 10 ML Syringe FLUSH SCH ×3 (08:04→20:46)
[2020-02-17] MEDS: Losartan 50 MG Tab PO SCH ×2 (08:04→19:16)
[2020-02-17] MEDS: Pantoprazole 40 MG Tab.CR PO SCH (08:04)
[2020-02-17] MEDS: Aspirin 325 MG Tab.EC PO SCH (08:05)
[2020-02-17] MEDS: Metoprolol Tartrate 50 MG Tab PO SCH ×2 (08:05→19:16)
[2020-02-17] MEDS: amLODIPine 5 MG Tab PO SCH (08:06)
[2020-02-17] MEDS: Loratadine 10 MG Tab PO SCH (08:07)
[2020-02-17] MEDS: Acetaminophen/HYDROcodone 325-5 MG Tab PO PRN ×2 (08:07→19:17)
[2020-02-17] MEDS: cefTRIAXone 2 GM in Sodium Chloride 0.9% 50 ML IV SCH (08:27)
[2020-02-17] MEDS: Ergocalciferol (Vitamin D2) 1.25 MG Cap PO SCH (08:27)
[2020-02-17] MEDS: Vitamin A 10,000 Unit Cap PO SCH (12:26)
[2020-02-17] MEDS: Lactobacillus Acidophilus/Lactobacillus Sporogenes (Probiotic) Tab PO SCH ×2 (12:27→19:15)
[2020-02-17] MEDS: Ascorbic Acid 500 MG Tab PO SCH (12:27)
[2020-02-17] MEDS: Cholecalciferol (Vitamin D3) 25 MCG Tab PO SCH (12:28)
[2020-02-17] MEDS: Zinc (Zinc Gluconate) 50 MG Tab PO SCH (12:30)
[2020-02-17] MEDS: Simvastatin 20 MG Tab PO SCH (19:17)
[2020-02-18] MEDS: traMADol 50 MG Tab PO PRN ×2 (01:30→13:59)
[2020-02-18] MEDS: Pantoprazole 40 MG Tab.CR PO SCH (06:12)
[2020-02-18] MEDS: Metoprolol Tartrate 50 MG Tab PO SCH ×2 (07:54→19:55)
[2020-02-18] MEDS: Losartan 50 MG Tab PO SCH ×2 (07:54→19:54)
[2020-02-18] MEDS: Aspirin 325 MG Tab.EC PO SCH (07:54)
[2020-02-18] MEDS: Loratadine 10 MG Tab PO SCH (07:54)
[2020-02-18] MEDS: amLODIPine 5 MG Tab PO SCH (07:55)
[2020-02-18] MEDS: Sodium Chloride 0.9% 10 ML Syringe FLUSH PRN ×2 (07:55→08:30)
[2020-02-18] MEDS: Acetaminophen/HYDROcodone 325-5 MG Tab PO PRN ×2 (07:56→19:52)
[2020-02-18] MEDS: cefTRIAXone 2 GM in Sodium Chloride 0.9% 50 ML IV SCH (07:57)
[2020-02-18] MEDS: Vitamin A 10,000 Unit Cap PO SCH (11:26)
[2020-02-18] MEDS: Cholecalciferol (Vitamin D3) 25 MCG Tab PO SCH (11:27)
[2020-02-18] MEDS: Ascorbic Acid 500 MG Tab PO SCH (11:27)
[2020-02-18] MEDS: Zinc (Zinc Gluconate) 50 MG Tab PO SCH (11:27)
[2020-02-18] MEDS: Lactobacillus Acidophilus/Lactobacillus Sporogenes (Probiotic) Tab PO SCH ×2 (11:27→19:51)
[2020-02-18] MEDS: Menthol/Zinc Oxide Ointment 113 GM Tube TOP PRN ×2 (14:00→19:49)
[2020-02-18] MEDS: Simvastatin 20 MG Tab PO SCH (19:51)
[2020-02-19] MEDS: traMADol 50 MG Tab PO PRN ×2 (01:57→13:38)
[2020-02-19] MEDS: Pantoprazole 40 MG Tab.CR PO SCH (06:12)
[2020-02-19] MEDS: Aspirin 325 MG Tab.EC PO SCH (08:24)
[2020-02-19] MEDS: Losartan 50 MG Tab PO SCH ×2 (08:25→20:35)
[2020-02-19] MEDS: Metoprolol Tartrate 50 MG Tab PO SCH ×2 (08:26→20:36)
[2020-02-19] MEDS: amLODIPine 5 MG Tab PO SCH (08:26)
[2020-02-19] MEDS: Loratadine 10 MG Tab PO SCH (08:26)
[2020-02-19] MEDS: Acetaminophen/HYDROcodone 325-5 MG Tab PO PRN ×2 (08:26→20:38)
[2020-02-19] MEDS: cefTRIAXone 2 GM in Sodium Chloride 0.9% 50 ML IV SCH (08:28)
[2020-02-19] MEDS: Sodium Chloride 0.9% 10 ML Syringe FLUSH PRN (09:51)
[2020-02-19] MEDS: Menthol/Zinc Oxide Ointment 113 GM Tube TOP PRN ×2 (09:51→20:46)
[2020-02-19] MEDS: Lactobacillus Acidophilus/Lactobacillus Sporogenes (Probiotic) Tab PO SCH ×2 (11:57→20:35)
[2020-02-19] MEDS: Vitamin A 10,000 Unit Cap PO SCH (11:57)
[2020-02-19] MEDS: Ascorbic Acid 500 MG Tab PO SCH (11:58)
[2020-02-19] MEDS: Zinc (Zinc Gluconate) 50 MG Tab PO SCH (11:58)
[2020-02-19] MEDS: Cholecalciferol (Vitamin D3) 25 MCG Tab PO SCH (11:58)
[2020-02-19] MEDS: Simvastatin 20 MG Tab PO SCH (20:37)
[2020-02-20] MEDS: traMADol 50 MG Tab PO PRN ×2 (02:35→12:46)
[2020-02-20] MEDS: Pantoprazole 40 MG Tab.CR PO SCH ×2 (05:52→06:40)
[2020-02-20] MEDS: cefTRIAXone 2 GM in Sodium Chloride 0.9% 50 ML IV SCH (07:36)
[2020-02-20] MEDS: Loratadine 10 MG Tab PO SCH (07:37)
[2020-02-20] MEDS: amLODIPine 5 MG Tab PO SCH (07:37)
[2020-02-20] MEDS: Losartan 50 MG Tab PO SCH ×2 (07:37→20:41)
[2020-02-20] MEDS: Aspirin 325 MG Tab.EC PO SCH (07:37)
[2020-02-20] MEDS: Metoprolol Tartrate 50 MG Tab PO SCH ×2 (07:38→20:39)
[2020-02-20] MEDS: Acetaminophen/HYDROcodone 325-5 MG Tab PO PRN ×2 (08:48→20:37)
[2020-02-20] MEDS: Lactobacillus Acidophilus/Lactobacillus Sporogenes (Probiotic) Tab PO SCH ×2 (12:39→20:41)
[2020-02-20] MEDS: Ascorbic Acid 500 MG Tab PO SCH (12:39)
[2020-02-20] MEDS: Zinc (Zinc Gluconate) 50 MG Tab PO SCH (12:39)
[2020-02-20] MEDS: Cholecalciferol (Vitamin D3) 25 MCG Tab PO SCH (12:40)
[2020-02-20] MEDS: Vitamin A 10,000 Unit Cap PO SCH (12:42)
[2020-02-20] MEDS: Naproxen 250 MG Tab PO PRN (20:37)
[2020-02-20] MEDS: Simvastatin 20 MG Tab PO SCH (20:40)
[2020-02-21] MEDS: traMADol 50 MG Tab PO PRN ×2 (01:36→13:35)
[2020-02-21] MEDS: Pantoprazole 40 MG Tab.CR PO SCH (06:43)
[2020-02-21] MEDS: Loratadine 10 MG Tab PO SCH (07:35)
[2020-02-21] MEDS: cefTRIAXone 2 GM in Sodium Chloride 0.9% 50 ML IV SCH (07:35)
[2020-02-21] MEDS: Metoprolol Tartrate 50 MG Tab PO SCH ×2 (07:37→19:48)
[2020-02-21] MEDS: Aspirin 325 MG Tab.EC PO SCH (07:39)
[2020-02-21] MEDS: Losartan 50 MG Tab PO SCH ×2 (07:39→19:47)
[2020-02-21] MEDS: amLODIPine 5 MG Tab PO SCH (07:39)
[2020-02-21] MEDS: Acetaminophen/HYDROcodone 325-5 MG Tab PO PRN ×2 (07:46→19:49)
[2020-02-21] MEDS: Zinc (Zinc Gluconate) 50 MG Tab PO SCH (12:01)
[2020-02-21] MEDS: Lactobacillus Acidophilus/Lactobacillus Sporogenes (Probiotic) Tab PO SCH ×2 (12:01→19:48)
[2020-02-21] MEDS: Cholecalciferol (Vitamin D3) 25 MCG Tab PO SCH (12:02)
[2020-02-21] MEDS: Ascorbic Acid 500 MG Tab PO SCH (12:02)
[2020-02-21] MEDS: Vitamin A 10,000 Unit Cap PO SCH (12:03)
[2020-02-21] MEDS: Simvastatin 20 MG Tab PO SCH (19:48)
[2020-02-21] MEDS: Naproxen 250 MG Tab PO PRN (19:48)
[2020-02-22] MEDS: traMADol 50 MG Tab PO PRN ×2 (01:23→12:31)
[2020-02-22] MEDS: Pantoprazole 40 MG Tab.CR PO SCH (06:07)
[2020-02-22] MEDS: Aspirin 325 MG Tab.EC PO SCH (07:09)
[2020-02-22] MEDS: Loratadine 10 MG Tab PO SCH (07:09)
[2020-02-22] MEDS: Losartan 50 MG Tab PO SCH ×2 (07:10→19:54)
[2020-02-22] MEDS: amLODIPine 5 MG Tab PO SCH (07:10)
[2020-02-22] MEDS: Metoprolol Tartrate 50 MG Tab PO SCH ×2 (07:11→19:55)
[2020-02-22] MEDS: cefTRIAXone 2 GM in Sodium Chloride 0.9% 50 ML IV SCH (07:12)
[2020-02-22] MEDS: Sodium Chloride 0.9% 10 ML Syringe FLUSH PRN (07:13)
[2020-02-22] MEDS: Acetaminophen/HYDROcodone 325-5 MG Tab PO PRN ×2 (08:01→20:01)
[2020-02-22] MEDS: Zinc (Zinc Gluconate) 50 MG Tab PO SCH (10:47)
[2020-02-22] MEDS: Ascorbic Acid 500 MG Tab PO SCH (10:47)
[2020-02-22] MEDS: Vitamin A 10,000 Unit Cap PO SCH (10:48)
[2020-02-22] MEDS: Lactobacillus Acidophilus/Lactobacillus Sporogenes (Probiotic) Tab PO SCH ×3 (10:48→19:54)
[2020-02-22] MEDS: Cholecalciferol (Vitamin D3) 25 MCG Tab PO SCH (10:49)
[2020-02-22] MEDS: Naproxen 250 MG Tab PO PRN (19:54)
[2020-02-22] MEDS: Simvastatin 20 MG Tab PO SCH (20:00)
[2020-02-23] MEDS: traMADol 50 MG Tab PO PRN ×2 (01:35→11:15)
[2020-02-23] MEDS: Pantoprazole 40 MG Tab.CR PO SCH (06:20)
[2020-02-23] MEDS: Acetaminophen/HYDROcodone 325-5 MG Tab PO PRN ×3 (08:18→20:04)
[2020-02-23] MEDS: amLODIPine 5 MG Tab PO SCH (08:21)
[2020-02-23] MEDS: Loratadine 10 MG Tab PO SCH (08:24)
[2020-02-23] MEDS: Aspirin 325 MG Tab.EC PO SCH (08:24)
[2020-02-23] MEDS: Metoprolol Tartrate 50 MG Tab PO SCH ×2 (08:25→20:06)
[2020-02-23] MEDS: Losartan 50 MG Tab PO SCH ×2 (08:27→20:03)
[2020-02-23] MEDS: cefTRIAXone 2 GM in Sodium Chloride 0.9% 50 ML IV SCH (08:28)
[2020-02-23] MEDS: Ascorbic Acid 500 MG Tab PO SCH (10:41)
[2020-02-23] MEDS: Vitamin A 10,000 Unit Cap PO SCH (10:41)
[2020-02-23] MEDS: Zinc (Zinc Gluconate) 50 MG Tab PO SCH (10:41)
[2020-02-23] MEDS: Cholecalciferol (Vitamin D3) 25 MCG Tab PO SCH (10:42)
[2020-02-23] MEDS: Lactobacillus Acidophilus/Lactobacillus Sporogenes (Probiotic) Tab PO SCH ×2 (11:03→20:04)
--- NOTE | 2020-02-23 11:43 | PCM.PN ---
- General Info Date of Service: 02/23/20 Subjective Update: Patient notes improved symptoms. She has increased strength. Denies any other concerns today. - Review of Systems General: Reports: Weakness HEENT: Reports: No Symptoms Pulmonary: Reports: No Symptoms Cardiovascular: Reports: No Symptoms Gastrointestinal: Reports: No Symptoms Musculoskeletal: Reports: Joint Pain Neurological: Reports: Weakness - Patient Data Vitals - Most Recent: Last Vital Signs Temp 36.6 C 02/23/20 08:00 Pulse 72 02/23/20 08:25 Resp 16 02/23/20 08:00 BP 178/77 H 02/23/20 08:27 Pulse Ox 100 02/23/20 08:00 Weight - Most Recent: 80.343 kg I&O - Last 24 Hours: Intake & Output 02/22/20 02/23/20 02/23/20 22:59 06:59 14:59 Intake Total 50 Balance 50 Med Orders - Current: Current Medications Hydrocodone Bitart/Acetaminophen ([place] 325-5 Mg) 1 - 2 tab PO Q6HR PRN PRN Reason: Pain (moderate 4-6) Last Admin: 02/23/20 08:18 Dose: 2 tab Documented by: Amlodipine Besylate (Norvasc) 7.5 mg PO DAILY [facility] Last Admin: 02/23/20 08:21 Dose: 7.5 mg Documented by: Ascorbic Acid (Vitamin C) 500 mg PO 1100 [facility] Last Admin: 02/23/20 10:41 Dose: 500 mg Documented by: Aspirin (Ecotrin) 325 mg PO DAILY [facility] Last Admin: 02/23/20 08:24 Dose: 325 mg Documented by: Calamine/Phenol (Calmoseptine) 1 gm TOP QID PRN PRN Reason: Rash Last Admin: 02/19/20 20:46 Dose: 1 applic Documented by: Cholecalciferol (Vitamin D3) 50 mcg PO 1100 [facility] Last Admin: 02/23/20 10:42 Dose: 50 mcg Documented by: Ergocalciferol (Vitamin D2) 1.25 mg PO Q7D [facility] Last Admin: 02/17/20 08:27 Dose: 1.25 mg Documented by: Ceftriaxone Sodium 2 gm/ (Sodium Chloride) 50 mls @ 100 mls/hr IV DAILY [facility] Last Admin: 02/23/20 08:28 Dose: 100 mls/hr Documented by: Lactobacillus Acidophilus (Acidolphilus Extra Strength) 1 tab PO BID@1200,2000 [facility] Last Admin: 02/23/20 11:03 Dose: 1 tab Documented by: Loratadine (Claritin) 10 mg PO DAILY [facility] Last Admin: 02/23/20 08:24 Dose: 10 mg Documented by: Losartan Potassium (Cozaar) 50 mg PO BID [facility] Last Admin: 02/23/20 08:27 Dose: 50 mg Documented by: Metoprolol Tartrate (Lopressor) 50 mg PO BID [facility] Last Admin: 02/23/20 08:25 Dose: 50 mg Documented by: Naproxen (Naprosyn) 250 mg PO Q12HR PRN PRN Reason: Pain Last Admin: 02/22/20 19:54 Dose: 250 mg Documented by: Pantoprazole Sodium (Protonix) 40 mg PO ACBREAKFAST [facility] Last Admin: 02/23/20 06:20 Dose: 40 mg Documented by: Senna/Docusate Sodium (Senna Plus) 1 tab PO BID PRN PRN Reason: Constipation Simethicone (Simethicone) 80 mg PO Q6H PRN PRN Reason: Gas Last Admin: 02/13/20 18:00 Dose: 80 mg Documented by: Simvastatin (Zocor) 20 mg PO BEDTIME [facility] Last Admin: 02/22/20 20:00 Dose: 20 mg Documented by: Sodium Chloride (Saline Flush) 10 ml FLUSH SEECOMMENT PRN PRN Reason: IV Use Last Admin: 02/22/20 07:13 Dose: 10 ml Documented by: Tramadol HCl (Ultram) 50 mg PO Q6H PRN PRN Reason: Pain (moderate 4-6) Last Admin: 02/23/20 11:15 Dose: 50 mg Documented by: Vitamin A (Vitamin A) 10,000 units PO 1100 [facility] Last Admin: 02/23/20 10:41 Dose: 10,000 units Documented by: Zinc Gluconate (Zinc) 50 mg PO 1100 [facility] Last Admin: 02/23/20 10:41 Dose: 50 mg Documented by: Discontinued Medications Hydrocodone Bitart/Acetaminophen (Banco 325-5 Mg) Confirm Administered Dose 2 tab .ROUTE .[facility]-MED ONE Stop: 02/09/20 15:47 Last Admin: 02/09/20 17:02 Dose: Not Given Documented by: Amlodipine Besylate (Norvasc) 5 mg PO DAILY [facility] Last Admin: 02/16/20 07:48 Dose: 5 mg Documented by: Amlodipine Besylate (Norvasc) 2.5 mg PO ONETIME ONE Stop: 02/16/20 11:38 Last Admin: 02/16/20 12:01 Dose: 2.5 mg Documented by: Amlodipine Besylate (Norvasc) Confirm Administered Dose 2.5 mg .ROUTE .STK-MED ONE Stop: 02/16/20 11:47 Last Admin: 02/16/20 12:01 Dose: Not Given Documented by: Ascorbic Acid (Vitamin C) 500 mg PO DAILY [facility] Last Admin: 02/12/20 07:55 Dose: 500 mg Documented by: Cholecalciferol (Vitamin D3) 50 mcg PO DAILY [facility] Last Admin: 02/12/20 07:56 Dose: 50 mcg Documented by: Pseudoephedrine HCl (Sudafed 12 Hour) 120 mg PO BIDMEALS [facility] Last Admin: 02/11/20 10:20 Dose: Not Given Documented by: Senna/Docusate Sodium (Senna Plus) 1 tab PO BID [facility] Last Admin: 02/13/20 08:11 Dose: Not Given Documented by: Sodium Chloride (Saline Flush) 10 ml FLUSH Q8HR [facility] Last Admin: 02/17/20 20:46 Dose: 10 ml Documented by: Tuberculin PPD (Aplisol) 5 unit IDERM ONETIME ONE Stop: 02/09/20 16:33 Last Admin: 02/09/20 17:47 Dose: 5 unit Documented by: Vitamin A (Vitamin A) 8,000 units PO DAILY [facility] Last Admin: 02/11/20 21:03 Dose: Not Given Documented by: Vitamin A (Vitamin A) 10,000 units PO DAILY [facility] Last Admin: 02/12/20 10:20 Dose: Not Given Documented by: Zinc Gluconate (Zinc) 50 mg PO DAILY [facility] Last Admin: 02/12/20 07:55 Dose: 50 mg Documented by: - Exam General: Alert, Oriented, Cooperative HEENT: Pupils Equal, Pupils Reactive, EOMI Neck: Supple Lungs: Clear to Auscultation, Normal Respiratory Effort Cardiovascular: Regular Rate, Regular Rhythm Extremities: Leg Pain Sepsis Event Note - Evaluation Sepsis Screening Result: No Definite Risk - Focused Exam Vital Signs: Vital Signs Temp Pulse Pulse Resp BP BP Pulse Ox 02/23/20 08:27 178/77 H 02/23/20 08:25 72 178/77 H 02/23/20 08:21 178/77 H 02/23/20 08:00 36.6 C 72 16 178/77 H 100 - Problem List & Annotations (1) History of arthroplasty SNOMED Code(s): 147096930, 109373025, 958025817 Code(s): Z98.890 - OTHER SPECIFIED POSTPROCEDURAL STATES Status: Acute Priority: High Current Visit: Yes (2) Infection of prosthetic hip joint SNOMED Code(s): 943256316 Code(s): T84.59XA - INFECT/INFLM REACTION DUE TO OTH INTERNAL JOINT PROSTH, INIT; Z96.649 - PRESENCE OF UNSPECIFIED ARTIFICIAL HIP JOINT Status: Acute Priority: High Current Visit: Yes (3) Generalized weakness SNOMED Code(s): 86397119 Code(s): R53.1 - WEAKNESS Status: Acute Priority: High Current Visit: Yes - Problem List Review Problem List Initiated/Reviewed/Updated: Yes - Plan Plan:: Continue on current IV antibiotics and management. PT/OT management as well. F/u plan of care and pain management. 02/16/20 Patient will continue on current IV antibiotics as scheduled for the next 6 weeks. PT/OT for ambulation and f/u progress. Adjust amlodipine to 7.5mg daily due to elevated BP. Will check BP later today and if elevated to give an extra 2.5mg dose of amlodipine to the current 5 mg given. F/u BP as routine. 02/23/20 Continue current IV Antibiotics. PT/OT management. BP stable - continue monitoring.
[2020-02-23] MEDS: Naproxen 250 MG Tab PO PRN (20:04)
[2020-02-23] MEDS: Simvastatin 20 MG Tab PO SCH (20:04)
[2020-02-24] MEDS: Acetaminophen/HYDROcodone 325-5 MG Tab PO PRN ×4 (02:19→20:10)
[2020-02-24] MEDS: Pantoprazole 40 MG Tab.CR PO SCH (06:43)
[2020-02-24] MEDS: cefTRIAXone 2 GM in Sodium Chloride 0.9% 50 ML IV SCH (07:43)
[2020-02-24] MEDS: Metoprolol Tartrate 50 MG Tab PO SCH ×2 (07:47→20:15)
[2020-02-24] MEDS: Aspirin 325 MG Tab.EC PO SCH (07:47)
[2020-02-24] MEDS: Loratadine 10 MG Tab PO SCH (07:47)
[2020-02-24] MEDS: Losartan 50 MG Tab PO SCH ×2 (07:48→20:13)
[2020-02-24] MEDS: amLODIPine 5 MG Tab PO SCH (07:48)
[2020-02-24] MEDS: Ergocalciferol (Vitamin D2) 1.25 MG Cap PO SCH (07:54)
[2020-02-24] MEDS: Vitamin A 10,000 Unit Cap PO SCH (11:01)
[2020-02-24] MEDS: Lactobacillus Acidophilus/Lactobacillus Sporogenes (Probiotic) Tab PO SCH ×2 (11:01→20:15)
[2020-02-24] MEDS: Ascorbic Acid 500 MG Tab PO SCH (11:01)
[2020-02-24] MEDS: Zinc (Zinc Gluconate) 50 MG Tab PO SCH (11:02)
[2020-02-24] MEDS: Cholecalciferol (Vitamin D3) 25 MCG Tab PO SCH (11:02)
[2020-02-24] MEDS: traMADol 50 MG Tab PO PRN (12:14)
[2020-02-24] MEDS: Simvastatin 20 MG Tab PO SCH (20:09)
[2020-02-24] MEDS: Naproxen 250 MG Tab PO PRN (20:12)
[2020-02-25] MEDS: traMADol 50 MG Tab PO PRN ×2 (02:05→13:34)
[2020-02-25] MEDS: Pantoprazole 40 MG Tab.CR PO SCH (06:25)
[2020-02-25] MEDS: cefTRIAXone 2 GM in Sodium Chloride 0.9% 50 ML IV SCH (08:13)
[2020-02-25] MEDS: Loratadine 10 MG Tab PO SCH (08:14)
[2020-02-25] MEDS: Losartan 50 MG Tab PO SCH ×2 (08:14→19:34)
[2020-02-25] MEDS: Metoprolol Tartrate 50 MG Tab PO SCH ×2 (08:15→19:35)
[2020-02-25] MEDS: Aspirin 325 MG Tab.EC PO SCH (08:15)
[2020-02-25] MEDS: amLODIPine 5 MG Tab PO SCH (08:15)
[2020-02-25] MEDS: Acetaminophen/HYDROcodone 325-5 MG Tab PO PRN ×2 (08:43→19:35)
[2020-02-25] MEDS: Cholecalciferol (Vitamin D3) 25 MCG Tab PO SCH (12:09)
[2020-02-25] MEDS: Ascorbic Acid 500 MG Tab PO SCH (12:10)
[2020-02-25] MEDS: Vitamin A 10,000 Unit Cap PO SCH (12:10)
[2020-02-25] MEDS: Zinc (Zinc Gluconate) 50 MG Tab PO SCH (12:10)
[2020-02-25] MEDS: Lactobacillus Acidophilus/Lactobacillus Sporogenes (Probiotic) Tab PO SCH ×2 (12:10→19:35)
[2020-02-25] MEDS: Simvastatin 20 MG Tab PO SCH (19:34)
[2020-02-26] MEDS: traMADol 50 MG Tab PO PRN ×2 (01:49→12:47)
[2020-02-26] MEDS: Pantoprazole 40 MG Tab.CR PO SCH ×2 (05:34→06:27)
[2020-02-26] MEDS ORDERED: amLODIPine 5 MG Tab ONE (07:55)
[2020-02-26] MEDS: amLODIPine 5 MG Tab PO SCH (07:59)
[2020-02-26] MEDS: Loratadine 10 MG Tab PO SCH (07:59)
[2020-02-26] MEDS: Aspirin 325 MG Tab.EC PO SCH (07:59)
[2020-02-26] MEDS: Losartan 50 MG Tab PO SCH ×2 (08:00→21:03)
[2020-02-26] MEDS: Metoprolol Tartrate 50 MG Tab PO SCH ×2 (08:01→21:04)
[2020-02-26] MEDS: Acetaminophen/HYDROcodone 325-5 MG Tab PO PRN ×2 (08:04→21:05)
[2020-02-26] MEDS: cefTRIAXone 2 GM in Sodium Chloride 0.9% 50 ML IV SCH (08:06)
[2020-02-26] MEDS: Sodium Chloride 0.9% 10 ML Syringe FLUSH PRN ×2 (08:08→08:51)
[2020-02-26] MEDS: Ascorbic Acid 500 MG Tab PO SCH (11:39)
[2020-02-26] MEDS: Vitamin A 10,000 Unit Cap PO SCH (11:39)
[2020-02-26] MEDS: Cholecalciferol (Vitamin D3) 25 MCG Tab PO SCH (11:39)
[2020-02-26] MEDS: Zinc (Zinc Gluconate) 50 MG Tab PO SCH (11:39)
[2020-02-26] MEDS: Lactobacillus Acidophilus/Lactobacillus Sporogenes (Probiotic) Tab PO SCH ×2 (12:31→21:03)
[2020-02-26] MEDS: Simvastatin 20 MG Tab PO SCH (21:05)
[2020-02-27] MEDS: traMADol 50 MG Tab PO PRN ×2 (02:13→12:18)
[2020-02-27] MEDS: cefTRIAXone 2 GM in Sodium Chloride 0.9% 50 ML IV SCH (08:36)
[2020-02-27] MEDS: Losartan 50 MG Tab PO SCH ×2 (08:41→19:32)
[2020-02-27] MEDS: Metoprolol Tartrate 50 MG Tab PO SCH ×2 (08:42→19:31)
[2020-02-27] MEDS: amLODIPine 5 MG Tab PO SCH (08:42)
[2020-02-27] MEDS: Loratadine 10 MG Tab PO SCH (08:42)
[2020-02-27] MEDS: Aspirin 325 MG Tab.EC PO SCH (08:43)
[2020-02-27] MEDS: Pantoprazole 40 MG Tab.CR PO SCH (08:43)
[2020-02-27] MEDS: Acetaminophen/HYDROcodone 325-5 MG Tab PO PRN ×2 (08:43→19:32)
[2020-02-27] MEDS: Sodium Chloride 0.9% 10 ML Syringe FLUSH PRN (09:12)
[2020-02-27] MEDS: Ascorbic Acid 500 MG Tab PO SCH (12:12)
[2020-02-27] MEDS: Cholecalciferol (Vitamin D3) 25 MCG Tab PO SCH (12:12)
[2020-02-27] MEDS: Zinc (Zinc Gluconate) 50 MG Tab PO SCH (12:12)
[2020-02-27] MEDS: Lactobacillus Acidophilus/Lactobacillus Sporogenes (Probiotic) Tab PO SCH ×2 (12:12→19:31)
[2020-02-27] MEDS: Vitamin A 10,000 Unit Cap PO SCH (12:13)
[2020-02-27] MEDS: Simvastatin 20 MG Tab PO SCH (19:32)
[2020-02-28] MEDS: traMADol 50 MG Tab PO PRN ×2 (01:53→15:01)
[2020-02-28] MEDS: Pantoprazole 40 MG Tab.CR PO SCH (07:12)
[2020-02-28] MEDS: cefTRIAXone 2 GM in Sodium Chloride 0.9% 50 ML IV SCH (09:34)
[2020-02-28] MEDS: Losartan 50 MG Tab PO SCH ×2 (09:35→20:25)
[2020-02-28] MEDS: amLODIPine 5 MG Tab PO SCH (09:35)
[2020-02-28] MEDS: Metoprolol Tartrate 50 MG Tab PO SCH ×2 (09:36→20:26)
[2020-02-28] MEDS: Loratadine 10 MG Tab PO SCH (09:36)
[2020-02-28] MEDS: Aspirin 325 MG Tab.EC PO SCH (09:36)
[2020-02-28] MEDS: Acetaminophen/HYDROcodone 325-5 MG Tab PO PRN ×2 (09:36→20:26)
[2020-02-28] MEDS: Sodium Chloride 0.9% 10 ML Syringe FLUSH PRN (10:06)
[2020-02-28] MEDS: Vitamin A 10,000 Unit Cap PO SCH (13:04)
[2020-02-28] MEDS: Lactobacillus Acidophilus/Lactobacillus Sporogenes (Probiotic) Tab PO SCH ×2 (13:04→20:26)
[2020-02-28] MEDS: Ascorbic Acid 500 MG Tab PO SCH (13:04)
[2020-02-28] MEDS: Zinc (Zinc Gluconate) 50 MG Tab PO SCH (13:04)
[2020-02-28] MEDS: Cholecalciferol (Vitamin D3) 25 MCG Tab PO SCH (13:06)
[2020-02-28] MEDS: Nystatin Topical Powder 15 GM Bottle TOP SCH (20:23)
[2020-02-28] MEDS: Simvastatin 20 MG Tab PO SCH (20:26)
[2020-02-29] MEDS: traMADol 50 MG Tab PO PRN ×2 (01:46→14:06)
[2020-02-29] MEDS: Pantoprazole 40 MG Tab.CR PO SCH ×2 (05:35→08:39)
[2020-02-29] MEDS: cefTRIAXone 2 GM in Sodium Chloride 0.9% 50 ML IV SCH (08:37)
[2020-02-29] MEDS: Metoprolol Tartrate 50 MG Tab PO SCH ×2 (08:38→19:33)
[2020-02-29] MEDS: amLODIPine 5 MG Tab PO SCH (08:38)
[2020-02-29] MEDS: Acetaminophen/HYDROcodone 325-5 MG Tab PO PRN ×2 (08:39→19:33)
[2020-02-29] MEDS: Loratadine 10 MG Tab PO SCH (08:39)
[2020-02-29] MEDS: Aspirin 325 MG Tab.EC PO SCH (08:39)
[2020-02-29] MEDS: Nystatin Topical Powder 15 GM Bottle TOP SCH ×2 (08:41→14:07)
[2020-02-29] MEDS: Losartan 50 MG Tab PO SCH ×2 (08:44→19:31)
[2020-02-29] MEDS: Sodium Chloride 0.9% 10 ML Syringe FLUSH PRN (09:19)
[2020-02-29] MEDS: Cholecalciferol (Vitamin D3) 25 MCG Tab PO SCH (11:39)
[2020-02-29] MEDS: Vitamin A 10,000 Unit Cap PO SCH (11:39)
[2020-02-29] MEDS: Zinc (Zinc Gluconate) 50 MG Tab PO SCH (11:39)
[2020-02-29] MEDS: Ascorbic Acid 500 MG Tab PO SCH (11:39)
[2020-02-29] MEDS: Lactobacillus Acidophilus/Lactobacillus Sporogenes (Probiotic) Tab PO SCH ×2 (12:00→19:33)
[2020-02-29] MEDS: Simvastatin 20 MG Tab PO SCH (19:31)
[2020-02-29] MEDS: Naproxen 250 MG Tab PO PRN (19:31)
[2020-03-01] MEDS: traMADol 50 MG Tab PO PRN ×2 (01:54→14:03)
[2020-03-01] MEDS: Nystatin Topical Powder 15 GM Bottle TOP SCH ×4 (01:58→19:48)
[2020-03-01] MEDS: Pantoprazole 40 MG Tab.CR PO SCH (06:24)
[2020-03-01] MEDS: Sodium Chloride 0.9% 10 ML Syringe FLUSH PRN ×2 (07:58→08:32)
[2020-03-01] MEDS: cefTRIAXone 2 GM in Sodium Chloride 0.9% 50 ML IV SCH (08:00)
[2020-03-01] MEDS: Aspirin 325 MG Tab.EC PO SCH (08:04)
[2020-03-01] MEDS: amLODIPine 5 MG Tab PO SCH (08:04)
[2020-03-01] MEDS: Loratadine 10 MG Tab PO SCH (08:04)
[2020-03-01] MEDS: Losartan 50 MG Tab PO SCH ×2 (08:05→19:49)
[2020-03-01] MEDS: Metoprolol Tartrate 50 MG Tab PO SCH ×2 (08:05→19:51)
--- NOTE | 2020-03-01 08:14 | PCM.PN ---
- General Info Date of Service: 03/01/20 Functional Status: Reports: Pain Controlled, Tolerating Diet - Review of Systems General: Reports: Weakness HEENT: Reports: No Symptoms Pulmonary: Reports: No Symptoms Cardiovascular: Reports: No Symptoms Gastrointestinal: Reports: No Symptoms Genitourinary: Reports: No Symptoms Musculoskeletal: Reports: Leg Pain Neurological: Reports: No Symptoms Psychiatric: Reports: No Symptoms - Patient Data Vitals - Most Recent: Last Vital Signs Temp 36.6 C 02/29/20 20:00 Pulse 78 03/01/20 08:05 Resp 16 02/29/20 20:00 BP 146/81 H 03/01/20 08:05 Pulse Ox 98 02/29/20 20:00 Weight - Most Recent: 80.343 kg I&O - Last 24 Hours: Intake & Output 02/29/20 03/01/20 03/01/20 22:59 06:59 14:59 Intake Total 50 Balance 50 Med Orders - Current: Current Medications Hydrocodone Bitart/Acetaminophen (Jenn[place] 325-5 Mg) 1 - 2 tab PO Q6HR PRN PRN Reason: Pain (moderate 4-6) Last Admin: 02/29/20 19:33 Dose: 2 tab Documented by: Amlodipine Besylate (Norvasc) 7.5 mg PO DAILY [facility] Last Admin: 03/01/20 08:04 Dose: 7.5 mg Documented by: Ascorbic Acid (Vitamin C) 500 mg PO 1100 [facility] Last Admin: 02/29/20 11:39 Dose: 500 mg Documented by: Aspirin (Ecotrin) 325 mg PO DAILY [facility] Last Admin: 03/01/20 08:04 Dose: 325 mg Documented by: Calamine/Phenol (Calmoseptine) 1 gm TOP QID PRN PRN Reason: Rash Last Admin: 02/19/20 20:46 Dose: 1 applic Documented by: Cholecalciferol (Vitamin D3) 50 mcg PO 1100 [facility] Last Admin: 02/29/20 11:39 Dose: 50 mcg Documented by: Ergocalciferol (Vitamin D2) 1.25 mg PO Q7D [facility] Last Admin: 02/24/20 07:54 Dose: 1.25 mg Documented by: Ceftriaxone Sodium 2 gm/ (Sodium Chloride) 50 mls @ 100 mls/hr IV DAILY [facility] Last Admin: 03/01/20 08:00 Dose: 100 mls/hr Documented by: Lactobacillus Acidophilus (Acidolphilus Extra Strength) 1 tab PO BID@1200,2000 [facility] Last Admin: 02/29/20 19:33 Dose: 1 tab Documented by: Loratadine (Claritin) 10 mg PO DAILY [facility] Last Admin: 03/01/20 08:04 Dose: 10 mg Documented by: Losartan Potassium (Cozaar) 50 mg PO BID [facility] Last Admin: 03/01/20 08:05 Dose: 50 mg Documented by: Metoprolol Tartrate (Lopressor) 50 mg PO BID [facility] Last Admin: 03/01/20 08:05 Dose: 50 mg Documented by: Naproxen (Naprosyn) 250 mg PO Q12HR PRN PRN Reason: Pain Last Admin: 02/29/20 19:31 Dose: 250 mg Documented by: Nystatin (Nystop) 0 gm TOP TID [facility] Last Admin: 03/01/20 08:01 Dose: 1 applic Documented by: Pantoprazole Sodium (Protonix) 40 mg PO ACBREAKFAST [facility] Last Admin: 03/01/20 06:24 Dose: 40 mg Documented by: Senna/Docusate Sodium (Senna Plus) 1 tab PO BID PRN PRN Reason: Constipation Simethicone (Simethicone) 80 mg PO Q6H PRN PRN Reason: Gas Last Admin: 02/13/20 18:00 Dose: 80 mg Documented by: Simvastatin (Zocor) 20 mg PO BEDTIME [facility] Last Admin: 02/29/20 19:31 Dose: 20 mg Documented by: Sodium Chloride (Saline Flush) 10 ml FLUSH SEECOMMENT PRN PRN Reason: IV Use Last Admin: 02/29/20 09:19 Dose: 10 ml Documented by: Tramadol HCl (Ultram) 50 mg PO Q6H PRN PRN Reason: Pain (moderate 4-6) Last Admin: 03/01/20 01:54 Dose: 50 mg Documented by: Vitamin A (Vitamin A) 10,000 units PO 1100 [facility] Last Admin: 02/29/20 11:39 Dose: 10,000 units Documented by: Zinc Gluconate (Zinc) 50 mg PO 1100 [facility] Last Admin: 02/29/20 11:39 Dose: 50 mg Documented by: Discontinued Medications Hydrocodone Bitart/Acetaminophen (Jennings 325-5 Mg) Confirm Administered Dose 2 tab .ROUTE .STK-MED ONE Stop: 02/09/20 15:47 Last Admin: 02/09/20 17:02 Dose: Not Given Documented by: Amlodipine Besylate (Norvasc) 5 mg PO DAILY [facility] Last Admin: 02/16/20 07:48 Dose: 5 mg Documented by: Amlodipine Besylate (Norvasc) 2.5 mg PO ONETIME ONE Stop: 02/16/20 11:38 Last Admin: 02/16/20 12:01 Dose: 2.5 mg Documented by: Amlodipine Besylate (Norvasc) Confirm Administered Dose 2.5 mg .ROUTE .STK-MED ONE Stop: 02/16/20 11:47 Last Admin: 02/16/20 12:01 Dose: Not Given Documented by: Amlodipine Besylate (Norvasc) Confirm Administered Dose 5 mg .ROUTE .STK-MED ONE Stop: 02/26/20 07:56 Last Admin: 02/26/20 08:01 Dose: Not Given Documented by: Ascorbic Acid (Vitamin C) 500 mg PO DAILY [facility] Last Admin: 02/12/20 07:55 Dose: 500 mg Documented by: Cholecalciferol (Vitamin D3) 50 mcg PO DAILY [facility] Last Admin: 02/12/20 07:56 Dose: 50 mcg Documented by: Pseudoephedrine HCl (Sudafed 12 Hour) 120 mg PO BIDMEALS [facility] Last Admin: 02/11/20 10:20 Dose: Not Given Documented by: Senna/Docusate Sodium (Senna Plus) 1 tab PO BID [facility] Last Admin: 02/13/20 08:11 Dose: Not Given Documented by: Sodium Chloride (Saline Flush) 10 ml FLUSH Q8HR [facility] Last Admin: 02/17/20 20:46 Dose: 10 ml Documented by: Tuberculin PPD (Aplisol) 5 unit IDERM ONETIME ONE Stop: 02/09/20 16:33 Last Admin: 02/09/20 17:47 Dose: 5 unit Documented by: Vitamin A (Vitamin A) 8,000 units PO DAILY [facility] Last Admin: 02/11/20 21:03 Dose: Not Given Documented by: Vitamin A (Vitamin A) 10,000 units PO DAILY [facility] Last Admin: 02/12/20 10:20 Dose: Not Given Documented by: Zinc Gluconate (Zinc) 50 mg PO DAILY [facility] Last Admin: 02/12/20 07:55 Dose: 50 mg Documented by: - Exam Quality Assessment: Supplemental Oxygen General: Alert, Oriented HEENT: Pupils Equal, Pupils Reactive Lungs: Clear to Auscultation, Normal Respiratory Effort Cardiovascular: Regular Rate, Regular Rhythm Sepsis Event Note - Evaluation Sepsis Screening Result: No Definite Risk - Focused Exam Vital Signs: Vital Signs Pulse BP 03/01/20 08:05 78 146/81 H 03/01/20 08:04 146/81 H - Problem List & Annotations (1) History of arthroplasty SNOMED Code(s): 285373869, 205358037, 847570149 Code(s): Z98.890 - OTHER SPECIFIED POSTPROCEDURAL STATES Status: Acute Priority: High Current Visit: Yes (2) Infection of prosthetic hip joint SNOMED Code(s): 346749310 Code(s): T84.59XA - INFECT/INFLM REACTION DUE TO OTH INTERNAL JOINT PROSTH, INIT; Z96.649 - PRESENCE OF UNSPECIFIED ARTIFICIAL HIP JOINT Status: Acute Priority: High Current Visit: Yes (3) Generalized weakness SNOMED Code(s): 74049060 Code(s): R53.1 - WEAKNESS Status: Acute Priority: High Current Visit: Yes - Problem List Review Problem List Initiated/Reviewed/Updated: Yes - Plan Plan:: Continue on current IV antibiotics and management. PT/OT management as well. F/u plan of care and pain management. 02/16/20 Patient will continue on current IV antibiotics as scheduled for the next 6 weeks. PT/OT for ambulation and f/u progress. Adjust amlodipine to 7.5mg daily due to elevated BP. Will check BP later today and if elevated to give an extra 2.5mg dose of amlodipine to the current 5 mg given. F/u BP as routine. 02/23/20 Continue current IV Antibiotics. PT/OT management. BP stable - continue monitoring. 03/01/20 Patient doing well with no concerns. PT/OT to continue. Continue IV antibiotics. Continue pedro meds as directed.
[2020-03-01] MEDS: Acetaminophen/HYDROcodone 325-5 MG Tab PO PRN ×2 (08:15→19:49)
[2020-03-01] MEDS: Zinc (Zinc Gluconate) 50 MG Tab PO SCH (11:42)
[2020-03-01] MEDS: Lactobacillus Acidophilus/Lactobacillus Sporogenes (Probiotic) Tab PO SCH ×2 (11:42→19:49)
[2020-03-01] MEDS: Ascorbic Acid 500 MG Tab PO SCH (11:44)
[2020-03-01] MEDS: Cholecalciferol (Vitamin D3) 25 MCG Tab PO SCH (11:44)
[2020-03-01] MEDS: Vitamin A 10,000 Unit Cap PO SCH (11:44)
[2020-03-01] MEDS: Naproxen 250 MG Tab PO PRN (19:48)
[2020-03-01] MEDS: Simvastatin 20 MG Tab PO SCH (19:49)
[2020-03-02] MEDS: traMADol 50 MG Tab PO PRN (01:47)
[2020-03-02] MEDS: Pantoprazole 40 MG Tab.CR PO SCH (06:23)
[2020-03-02] MEDS: Losartan 50 MG Tab PO SCH ×2 (07:41→19:57)
[2020-03-02] MEDS: Metoprolol Tartrate 50 MG Tab PO SCH ×2 (07:41→20:02)
[2020-03-02] MEDS: Loratadine 10 MG Tab PO SCH (07:41)
[2020-03-02] MEDS: Aspirin 325 MG Tab.EC PO SCH (07:41)
[2020-03-02] MEDS: amLODIPine 5 MG Tab PO SCH (07:42)
[2020-03-02] MEDS: Nystatin Topical Powder 15 GM Bottle TOP SCH ×3 (07:44→20:03)
[2020-03-02] MEDS: cefTRIAXone 2 GM in Sodium Chloride 0.9% 50 ML IV SCH (07:45)
[2020-03-02] MEDS: Sodium Chloride 0.9% 10 ML Syringe FLUSH PRN (07:57)
[2020-03-02] MEDS: Acetaminophen/HYDROcodone 325-5 MG Tab PO PRN ×2 (08:38→20:05)
[2020-03-02] MEDS: Ergocalciferol (Vitamin D2) 1.25 MG Cap PO SCH (09:42)
[2020-03-02] MEDS: Zinc (Zinc Gluconate) 50 MG Tab PO SCH (11:15)
[2020-03-02] MEDS: Lactobacillus Acidophilus/Lactobacillus Sporogenes (Probiotic) Tab PO SCH ×2 (11:16→20:02)
[2020-03-02] MEDS: Ascorbic Acid 500 MG Tab PO SCH (11:16)
[2020-03-02] MEDS: Vitamin A 10,000 Unit Cap PO SCH (11:17)
[2020-03-02] MEDS: Cholecalciferol (Vitamin D3) 25 MCG Tab PO SCH (11:17)
[2020-03-02] MEDS: Simvastatin 20 MG Tab PO SCH (19:59)
[2020-03-02] MEDS: Naproxen 250 MG Tab PO PRN (19:59)
[2020-03-03] MEDS: traMADol 50 MG Tab PO PRN ×2 (02:10→13:44)
[2020-03-03] MEDS: Pantoprazole 40 MG Tab.CR PO SCH (06:38)
[2020-03-03] MEDS: cefTRIAXone 2 GM in Sodium Chloride 0.9% 50 ML IV SCH (08:01)
[2020-03-03] MEDS: Acetaminophen/HYDROcodone 325-5 MG Tab PO PRN ×2 (08:05→21:01)
[2020-03-03] MEDS: Aspirin 325 MG Tab.EC PO SCH (08:06)
[2020-03-03] MEDS: Losartan 50 MG Tab PO SCH ×2 (08:06→20:15)
[2020-03-03] MEDS: amLODIPine 5 MG Tab PO SCH (08:07)
[2020-03-03] MEDS: Loratadine 10 MG Tab PO SCH (08:07)
[2020-03-03] MEDS: Metoprolol Tartrate 50 MG Tab PO SCH ×2 (08:08→20:15)
[2020-03-03] MEDS: Nystatin Topical Powder 15 GM Bottle TOP SCH ×3 (08:10→20:15)
[2020-03-03] MEDS: Zinc (Zinc Gluconate) 50 MG Tab PO SCH (11:51)
[2020-03-03] MEDS: Ascorbic Acid 500 MG Tab PO SCH (11:51)
[2020-03-03] MEDS: Lactobacillus Acidophilus/Lactobacillus Sporogenes (Probiotic) Tab PO SCH ×2 (11:51→20:15)
[2020-03-03] MEDS: Cholecalciferol (Vitamin D3) 25 MCG Tab PO SCH (11:52)
[2020-03-03] MEDS: Vitamin A 10,000 Unit Cap PO SCH (11:52)
[2020-03-03] MEDS: Simvastatin 20 MG Tab PO SCH (20:15)
[2020-03-03] MEDS: Naproxen 250 MG Tab PO PRN (21:09)
[2020-03-04] MEDS: traMADol 50 MG Tab PO PRN ×2 (02:27→15:01)
[2020-03-04] MEDS: Pantoprazole 40 MG Tab.CR PO SCH (06:15)
[2020-03-04] MEDS: amLODIPine 5 MG Tab PO SCH (08:08)
[2020-03-04] MEDS: Aspirin 325 MG Tab.EC PO SCH (08:09)
[2020-03-04] MEDS: Metoprolol Tartrate 50 MG Tab PO SCH ×2 (08:09→20:15)
[2020-03-04] MEDS: Loratadine 10 MG Tab PO SCH (08:09)
[2020-03-04] MEDS: Acetaminophen/HYDROcodone 325-5 MG Tab PO PRN ×2 (08:10→20:16)
[2020-03-04] MEDS: Losartan 50 MG Tab PO SCH ×2 (08:10→20:14)
[2020-03-04] MEDS: cefTRIAXone 2 GM in Sodium Chloride 0.9% 50 ML IV SCH (08:11)
[2020-03-04] MEDS: Nystatin Topical Powder 15 GM Bottle TOP SCH ×3 (08:18→20:15)
[2020-03-04] MEDS: Vitamin A 10,000 Unit Cap PO SCH (11:55)
[2020-03-04] MEDS: Lactobacillus Acidophilus/Lactobacillus Sporogenes (Probiotic) Tab PO SCH ×2 (11:55→20:14)
[2020-03-04] MEDS: Ascorbic Acid 500 MG Tab PO SCH (11:56)
[2020-03-04] MEDS: Cholecalciferol (Vitamin D3) 25 MCG Tab PO SCH (11:56)
[2020-03-04] MEDS: Zinc (Zinc Gluconate) 50 MG Tab PO SCH (11:58)
[2020-03-04] MEDS ORDERED: Zinc (Zinc Gluconate) 50 MG Tab ONE (11:58)
[2020-03-04] MEDS: Simvastatin 20 MG Tab PO SCH (20:15)
[2020-03-04] MEDS: Naproxen 250 MG Tab PO PRN (20:16)
[2020-03-05] MEDS: traMADol 50 MG Tab PO PRN ×2 (02:45→13:51)
[2020-03-05] MEDS: Pantoprazole 40 MG Tab.CR PO SCH (07:03)
[2020-03-05] MEDS: cefTRIAXone 2 GM in Sodium Chloride 0.9% 50 ML IV SCH (07:40)
[2020-03-05] MEDS: amLODIPine 5 MG Tab PO SCH (07:44)
[2020-03-05] MEDS: Aspirin 325 MG Tab.EC PO SCH (07:45)
[2020-03-05] MEDS: Losartan 50 MG Tab PO SCH ×2 (07:45→20:30)
[2020-03-05] MEDS: Metoprolol Tartrate 50 MG Tab PO SCH ×2 (07:45→20:31)
[2020-03-05] MEDS: Loratadine 10 MG Tab PO SCH (07:46)
[2020-03-05] MEDS: Nystatin Topical Powder 15 GM Bottle TOP SCH ×3 (07:47→20:31)
[2020-03-05] MEDS: Acetaminophen/HYDROcodone 325-5 MG Tab PO PRN ×2 (08:33→20:32)
[2020-03-05] MEDS: Lactobacillus Acidophilus/Lactobacillus Sporogenes (Probiotic) Tab PO SCH ×2 (11:25→20:30)
[2020-03-05] MEDS: Zinc (Zinc Gluconate) 50 MG Tab PO SCH (11:25)
[2020-03-05] MEDS: Cholecalciferol (Vitamin D3) 25 MCG Tab PO SCH (11:25)
[2020-03-05] MEDS: Ascorbic Acid 500 MG Tab PO SCH (11:26)
[2020-03-05] MEDS: Vitamin A 10,000 Unit Cap PO SCH (11:26)
[2020-03-05] MEDS: Simvastatin 20 MG Tab PO SCH (20:32)
[2020-03-05] MEDS: Naproxen 250 MG Tab PO PRN (20:32)
[2020-03-06] MEDS: traMADol 50 MG Tab PO PRN ×2 (02:00→15:04)
[2020-03-06] MEDS: cefTRIAXone 2 GM in Sodium Chloride 0.9% 50 ML IV SCH (07:34)
[2020-03-06] MEDS: Pantoprazole 40 MG Tab.CR PO SCH (07:35)
[2020-03-06] MEDS: Aspirin 325 MG Tab.EC PO SCH (07:41)
[2020-03-06] MEDS: Loratadine 10 MG Tab PO SCH (07:41)
[2020-03-06] MEDS: Metoprolol Tartrate 50 MG Tab PO SCH ×2 (07:41→19:40)
[2020-03-06] MEDS: Losartan 50 MG Tab PO SCH ×2 (07:42→19:40)
[2020-03-06] MEDS: amLODIPine 5 MG Tab PO SCH (07:42)
[2020-03-06] MEDS: Nystatin Topical Powder 15 GM Bottle TOP SCH ×2 (07:45→19:40)
[2020-03-06] MEDS: Acetaminophen/HYDROcodone 325-5 MG Tab PO PRN ×2 (07:47→19:44)
[2020-03-06] MEDS: Sodium Chloride 0.9% 10 ML Syringe FLUSH PRN (08:08)
[2020-03-06] MEDS: Ascorbic Acid 500 MG Tab PO SCH (11:37)
[2020-03-06] MEDS: Lactobacillus Acidophilus/Lactobacillus Sporogenes (Probiotic) Tab PO SCH ×2 (11:37→19:41)
[2020-03-06] MEDS: Vitamin A 10,000 Unit Cap PO SCH (11:37)
[2020-03-06] MEDS: Zinc (Zinc Gluconate) 50 MG Tab PO SCH (11:37)
[2020-03-06] MEDS: Cholecalciferol (Vitamin D3) 25 MCG Tab PO SCH (11:38)
[2020-03-06] MEDS: Simvastatin 20 MG Tab PO SCH (19:41)
[2020-03-07] MEDS: traMADol 50 MG Tab PO PRN ×2 (00:36→14:18)
[2020-03-07] MEDS: cefTRIAXone 2 GM in Sodium Chloride 0.9% 50 ML IV SCH (07:52)
[2020-03-07] MEDS: Losartan 50 MG Tab PO SCH ×2 (07:53→19:33)
[2020-03-07] MEDS: Metoprolol Tartrate 50 MG Tab PO SCH ×2 (07:53→19:34)
[2020-03-07] MEDS: Pantoprazole 40 MG Tab.CR PO SCH (07:53)
[2020-03-07] MEDS: Loratadine 10 MG Tab PO SCH (07:53)
[2020-03-07] MEDS: amLODIPine 5 MG Tab PO SCH (07:53)
[2020-03-07] MEDS: Aspirin 325 MG Tab.EC PO SCH (07:59)
[2020-03-07] MEDS: Acetaminophen/HYDROcodone 325-5 MG Tab PO PRN ×2 (07:59→19:34)
[2020-03-07] MEDS: Nystatin Topical Powder 15 GM Bottle TOP SCH ×2 (08:51→19:35)
[2020-03-07] MEDS: Vitamin A 10,000 Unit Cap PO SCH (11:14)
[2020-03-07] MEDS: Ascorbic Acid 500 MG Tab PO SCH (11:14)
[2020-03-07] MEDS: Zinc (Zinc Gluconate) 50 MG Tab PO SCH (11:14)
[2020-03-07] MEDS: Cholecalciferol (Vitamin D3) 25 MCG Tab PO SCH (11:14)
[2020-03-07] MEDS: Lactobacillus Acidophilus/Lactobacillus Sporogenes (Probiotic) Tab PO SCH ×2 (11:15→19:34)
[2020-03-07] MEDS: Simvastatin 20 MG Tab PO SCH (19:33)
[2020-03-08] MEDS: traMADol 50 MG Tab PO PRN ×2 (01:45→14:00)
[2020-03-08] MEDS: Sodium Chloride 0.9% 10 ML Syringe FLUSH PRN (07:55)
[2020-03-08] MEDS: amLODIPine 5 MG Tab PO SCH (07:55)
[2020-03-08] MEDS: cefTRIAXone 2 GM in Sodium Chloride 0.9% 50 ML IV SCH (07:55)
[2020-03-08] MEDS: Losartan 50 MG Tab PO SCH ×2 (07:56→19:07)
[2020-03-08] MEDS: Loratadine 10 MG Tab PO SCH (07:59)
[2020-03-08] MEDS: Metoprolol Tartrate 50 MG Tab PO SCH ×2 (07:59→19:06)
[2020-03-08] MEDS: Aspirin 325 MG Tab.EC PO SCH (07:59)
[2020-03-08] MEDS: Pantoprazole 40 MG Tab.CR PO SCH (08:00)
[2020-03-08] MEDS: Acetaminophen/HYDROcodone 325-5 MG Tab PO PRN ×2 (08:08→19:07)
[2020-03-08] MEDS: Nystatin Topical Powder 15 GM Bottle TOP SCH ×5 (08:31→22:15)
--- NOTE | 2020-03-08 10:58 | PCM.PN ---
- General Info Date of Service: 03/08/20 Functional Status: Reports: Tolerating Diet, Ambulating - Review of Systems General: Reports: Weakness HEENT: Reports: No Symptoms Pulmonary: Reports: No Symptoms Cardiovascular: Reports: No Symptoms Gastrointestinal: Reports: No Symptoms Genitourinary: Reports: No Symptoms Musculoskeletal: Reports: Joint Pain - Patient Data Vitals - Most Recent: Last Vital Signs Temp 36.6 C 03/08/20 08:00 Pulse 78 03/08/20 08:00 Resp 16 03/08/20 08:00 BP 151/70 H 03/08/20 08:00 Pulse Ox 98 03/08/20 08:00 Weight - Most Recent: 79.197 kg I&O - Last 24 Hours: Intake & Output 03/07/20 03/08/20 03/08/20 22:59 06:59 14:59 Intake Total 50 Balance 50 Med Orders - Current: Current Medications Hydrocodone Bitart/Acetaminophen ([place] 325-5 Mg) 1 - 2 tab PO Q6HR PRN PRN Reason: Pain (moderate 4-6) Last Admin: 03/08/20 08:08 Dose: 2 tab Documented by: Amlodipine Besylate (Norvasc) 7.5 mg PO DAILY [facility] Last Admin: 03/08/20 07:55 Dose: 7.5 mg Documented by: Ascorbic Acid (Vitamin C) 500 mg PO 1100 [facility] Last Admin: 03/07/20 11:14 Dose: 500 mg Documented by: Aspirin (Ecotrin) 325 mg PO DAILY [facility] Last Admin: 03/08/20 07:59 Dose: 325 mg Documented by: Calamine/Phenol (Calmoseptine) 1 gm TOP QID PRN PRN Reason: Rash Last Admin: 02/19/20 20:46 Dose: 1 applic Documented by: Cholecalciferol (Vitamin D3) 50 mcg PO 1100 [facility] Last Admin: 03/07/20 11:14 Dose: 50 mcg Documented by: Ergocalciferol (Vitamin D2) 1.25 mg PO Q7D [facility] Last Admin: 03/02/20 09:42 Dose: 1.25 mg Documented by: Ceftriaxone Sodium 2 gm/ (Sodium Chloride) 50 mls @ 100 mls/hr IV DAILY [facility] Last Admin: 03/08/20 07:55 Dose: 100 mls/hr Documented by: Lactobacillus Acidophilus (Acidolphilus Extra Strength) 1 tab PO BID@1200,2000 [facility] Last Admin: 03/07/20 19:34 Dose: 1 tab Documented by: Loratadine (Claritin) 10 mg PO DAILY [facility] Last Admin: 03/08/20 07:59 Dose: 10 mg Documented by: Losartan Potassium (Cozaar) 50 mg PO BID [facility] Last Admin: 03/08/20 07:56 Dose: 50 mg Documented by: Metoprolol Tartrate (Lopressor) 50 mg PO BID [facility] Last Admin: 03/08/20 07:59 Dose: 50 mg Documented by: Naproxen (Naprosyn) 250 mg PO Q12HR PRN PRN Reason: Pain Last Admin: 03/05/20 20:32 Dose: 250 mg Documented by: Nystatin (Nystop) 0 gm TOP TID [facility] Last Admin: 03/07/20 19:35 Dose: 1 applic Documented by: Pantoprazole Sodium (Protonix) 40 mg PO ACBREAKFAST [facility] Last Admin: 03/08/20 08:00 Dose: 40 mg Documented by: Senna/Docusate Sodium (Senna Plus) 1 tab PO BID PRN PRN Reason: Constipation Simethicone (Simethicone) 80 mg PO Q6H PRN PRN Reason: Gas Last Admin: 02/13/20 18:00 Dose: 80 mg Documented by: Simvastatin (Zocor) 20 mg PO BEDTIME [facility] Last Admin: 03/07/20 19:33 Dose: 20 mg Documented by: Sodium Chloride (Saline Flush) 10 ml FLUSH SEECOMMENT PRN PRN Reason: IV Use Last Admin: 03/08/20 07:55 Dose: 10 ml Documented by: Tramadol HCl (Ultram) 50 mg PO Q6H PRN PRN Reason: Pain (moderate 4-6) Last Admin: 03/08/20 01:45 Dose: 50 mg Documented by: Vitamin A (Vitamin A) 10,000 units PO 1100 [facility] Last Admin: 03/07/20 11:14 Dose: 10,000 units Documented by: Zinc Gluconate (Zinc) 50 mg PO 1100 [facility] Last Admin: 03/07/20 11:14 Dose: 50 mg Documented by: Discontinued Medications Hydrocodone Bitart/Acetaminophen ([place] 325-5 Mg) Confirm Administered Dose 2 tab .ROUTE .STK-MED ONE Stop: 02/09/20 15:47 Last Admin: 02/09/20 17:02 Dose: Not Given Documented by: Amlodipine Besylate (Norvasc) 5 mg PO DAILY [facility] Last Admin: 02/16/20 07:48 Dose: 5 mg Documented by: Amlodipine Besylate (Norvasc) 2.5 mg PO ONETIME ONE Stop: 02/16/20 11:38 Last Admin: 02/16/20 12:01 Dose: 2.5 mg Documented by: Amlodipine Besylate (Norvasc) Confirm Administered Dose 2.5 mg .ROUTE .STK-MED ONE Stop: 02/16/20 11:47 Last Admin: 02/16/20 12:01 Dose: Not Given Documented by: Amlodipine Besylate (Norvasc) Confirm Administered Dose 5 mg .ROUTE .STK-MED ONE Stop: 02/26/20 07:56 Last Admin: 02/26/20 08:01 Dose: Not Given Documented by: Ascorbic Acid (Vitamin C) 500 mg PO DAILY [facility] Last Admin: 02/12/20 07:55 Dose: 500 mg Documented by: Cholecalciferol (Vitamin D3) 50 mcg PO DAILY [facility] Last Admin: 02/12/20 07:56 Dose: 50 mcg Documented by: Pseudoephedrine HCl (Sudafed 12 Hour) 120 mg PO BIDMEALS [facility] Last Admin: 02/11/20 10:20 Dose: Not Given Documented by: Senna/Docusate Sodium (Senna Plus) 1 tab PO BID [facility] Last Admin: 02/13/20 08:11 Dose: Not Given Documented by: Sodium Chloride (Saline Flush) 10 ml FLUSH Q8HR [facility] Last Admin: 02/17/20 20:46 Dose: 10 ml Documented by: Tuberculin PPD (Aplisol) 5 unit IDERM ONETIME ONE Stop: 02/09/20 16:33 Last Admin: 02/09/20 17:47 Dose: 5 unit Documented by: Vitamin A (Vitamin A) 8,000 units PO DAILY [facility] Last Admin: 02/11/20 21:03 Dose: Not Given Documented by: Vitamin A (Vitamin A) 10,000 units PO DAILY [facility] Last Admin: 02/12/20 10:20 Dose: Not Given Documented by: Zinc Gluconate (Zinc) 50 mg PO DAILY [facility] Last Admin: 02/12/20 07:55 Dose: 50 mg Documented by: Zinc Gluconate (Zinc) Confirm Administered Dose 50 mg .ROUTE .STK-MED ONE Stop: 03/04/20 11:59 Last Admin: 03/04/20 12:03 Dose: Not Given Documented by: - Exam General: Alert, Oriented, Cooperative HEENT: Pupils Equal, Pupils Reactive, EOMI Neck: Supple Lungs: Clear to Auscultation, Normal Respiratory Effort Cardiovascular: Regular Rate, Regular Rhythm Back Exam: Normal Inspection Extremities: Leg Pain (left) Sepsis Event Note - Evaluation Sepsis Screening Result: No Definite Risk - Focused Exam Vital Signs: Vital Signs Temp Pulse Pulse Resp BP BP Pulse Ox 03/08/20 08:00 36.6 C 78 16 151/70 H 98 03/08/20 07:59 78 151/70 H 03/08/20 07:56 151/70 H 03/08/20 07:55 151/70 H - Problem List & Annotations (1) History of arthroplasty SNOMED Code(s): 008011495, 400343179, 824127443 Code(s): Z98.890 - OTHER SPECIFIED POSTPROCEDURAL STATES Status: Acute Priority: High Current Visit: Yes (2) Infection of prosthetic hip joint SNOMED Code(s): 071970472 Code(s): T84.59XA - INFECT/INFLM REACTION DUE TO OTH INTERNAL JOINT PROSTH, INIT; Z96.649 - PRESENCE OF UNSPECIFIED ARTIFICIAL HIP JOINT Status: Acute Priority: High Current Visit: Yes (3) Generalized weakness SNOMED Code(s): 36564088 Code(s): R53.1 - WEAKNESS Status: Acute Priority: High Current Visit: Yes - Problem List Review Problem List Initiated/Reviewed/Updated: Yes - Plan Plan:: Continue on current IV antibiotics and management. PT/OT management as well. F/u plan of care and pain management. 02/16/20 Patient will continue on current IV antibiotics as scheduled for the next 6 weeks. PT/OT for ambulation and f/u progress. Adjust amlodipine to 7.5mg daily due to elevated BP. Will check BP later today and if elevated to give an extra 2.5mg dose of amlodipine to the current 5 mg given. F/u BP as routine. 02/23/20 Continue current IV Antibiotics. PT/OT management. BP stable - continue monitoring. 03/01/20 Patient doing well with no concerns. PT/OT to continue. Continue IV antibiotics. Continue pedro meds as directed. 03/08/20 No concerns today. Patient improvement daily. We will continue with current care and PT/OT. Continue ABX.
[2020-03-08] MEDS: Zinc (Zinc Gluconate) 50 MG Tab PO SCH (11:32)
[2020-03-08] MEDS: Ascorbic Acid 500 MG Tab PO SCH (11:32)
[2020-03-08] MEDS: Vitamin A 10,000 Unit Cap PO SCH (11:32)
[2020-03-08] MEDS: Cholecalciferol (Vitamin D3) 25 MCG Tab PO SCH (11:32)
[2020-03-08] MEDS: Lactobacillus Acidophilus/Lactobacillus Sporogenes (Probiotic) Tab PO SCH ×2 (12:32→19:07)
[2020-03-08] MEDS: Simvastatin 20 MG Tab PO SCH (19:07)
[2020-03-09] MEDS: traMADol 50 MG Tab PO PRN ×2 (01:45→14:51)
[2020-03-09] MEDS: Pantoprazole 40 MG Tab.CR PO SCH ×2 (05:21→06:23)
[2020-03-09] MEDS: Sodium Chloride 0.9% 10 ML Syringe FLUSH PRN ×2 (07:53→08:45)
[2020-03-09] MEDS: cefTRIAXone 2 GM in Sodium Chloride 0.9% 50 ML IV SCH (07:53)
[2020-03-09] MEDS: Losartan 50 MG Tab PO SCH ×2 (07:53→19:49)
[2020-03-09] MEDS: Metoprolol Tartrate 50 MG Tab PO SCH ×2 (07:54→19:48)
[2020-03-09] MEDS: Aspirin 325 MG Tab.EC PO SCH (07:54)
[2020-03-09] MEDS: Acetaminophen/HYDROcodone 325-5 MG Tab PO PRN ×2 (07:54→19:49)
[2020-03-09] MEDS: Loratadine 10 MG Tab PO SCH (07:54)
[2020-03-09] MEDS: amLODIPine 5 MG Tab PO SCH (07:54)
[2020-03-09] MEDS: Nystatin Topical Powder 15 GM Bottle TOP SCH ×3 (08:00→19:49)
[2020-03-09] MEDS: Ergocalciferol (Vitamin D2) 1.25 MG Cap PO SCH (08:12)
[2020-03-09] MEDS: Zinc (Zinc Gluconate) 50 MG Tab PO SCH (12:00)
[2020-03-09] MEDS: Cholecalciferol (Vitamin D3) 25 MCG Tab PO SCH (12:00)
[2020-03-09] MEDS: Lactobacillus Acidophilus/Lactobacillus Sporogenes (Probiotic) Tab PO SCH ×2 (12:00→19:48)
[2020-03-09] MEDS: Vitamin A 10,000 Unit Cap PO SCH (12:00)
[2020-03-09] MEDS: Ascorbic Acid 500 MG Tab PO SCH (12:00)
[2020-03-09] MEDS: Simvastatin 20 MG Tab PO SCH (19:48)
[2020-03-10] MEDS: traMADol 50 MG Tab PO PRN (02:07)
[2020-03-10] MEDS: Pantoprazole 40 MG Tab.CR PO SCH ×2 (05:03→06:04)
[2020-03-10] MEDS: Acetaminophen/HYDROcodone 325-5 MG Tab PO PRN ×2 (07:38→19:40)
[2020-03-10] MEDS: Aspirin 325 MG Tab.EC PO SCH (07:38)
[2020-03-10] MEDS: Metoprolol Tartrate 50 MG Tab PO SCH ×2 (07:43→19:40)
[2020-03-10] MEDS: amLODIPine 5 MG Tab PO SCH (07:44)
[2020-03-10] MEDS: Losartan 50 MG Tab PO SCH ×2 (07:44→19:41)
[2020-03-10] MEDS: Loratadine 10 MG Tab PO SCH (07:45)
[2020-03-10] MEDS: cefTRIAXone 2 GM in Sodium Chloride 0.9% 50 ML IV SCH (07:46)
[2020-03-10] MEDS: Nystatin Topical Powder 15 GM Bottle TOP SCH ×3 (08:00→19:41)
[2020-03-10] MEDS: Zinc (Zinc Gluconate) 50 MG Tab PO SCH (11:36)
[2020-03-10] MEDS: Ascorbic Acid 500 MG Tab PO SCH (11:36)
[2020-03-10] MEDS: Vitamin A 10,000 Unit Cap PO SCH (11:36)
[2020-03-10] MEDS: Lactobacillus Acidophilus/Lactobacillus Sporogenes (Probiotic) Tab PO SCH ×2 (11:36→19:40)
[2020-03-10] MEDS: Cholecalciferol (Vitamin D3) 25 MCG Tab PO SCH (11:37)
[2020-03-10] MEDS: Simvastatin 20 MG Tab PO SCH (19:40)
[2020-03-11] MEDS: traMADol 50 MG Tab PO PRN ×2 (01:19→15:00)
[2020-03-11] MEDS: Pantoprazole 40 MG Tab.CR PO SCH ×2 (05:42→06:26)
[2020-03-11] MEDS: cefTRIAXone 2 GM in Sodium Chloride 0.9% 50 ML IV SCH (07:55)
[2020-03-11] MEDS: Losartan 50 MG Tab PO SCH ×2 (07:56→20:09)
[2020-03-11] MEDS: Metoprolol Tartrate 50 MG Tab PO SCH ×2 (07:56→20:10)
[2020-03-11] MEDS: Loratadine 10 MG Tab PO SCH (07:56)
[2020-03-11] MEDS: amLODIPine 5 MG Tab PO SCH (07:57)
[2020-03-11] MEDS: Aspirin 325 MG Tab.EC PO SCH (07:57)
[2020-03-11] MEDS: Acetaminophen/HYDROcodone 325-5 MG Tab PO PRN ×2 (07:57→20:13)
[2020-03-11] MEDS: Nystatin Topical Powder 15 GM Bottle TOP SCH ×3 (08:00→20:11)
[2020-03-11] MEDS: Zinc (Zinc Gluconate) 50 MG Tab PO SCH (11:51)
[2020-03-11] MEDS: Ascorbic Acid 500 MG Tab PO SCH (11:51)
[2020-03-11] MEDS: Vitamin A 10,000 Unit Cap PO SCH (11:51)
[2020-03-11] MEDS: Cholecalciferol (Vitamin D3) 25 MCG Tab PO SCH (11:52)
[2020-03-11] MEDS: Lactobacillus Acidophilus/Lactobacillus Sporogenes (Probiotic) Tab PO SCH ×3 (12:00→20:08)
[2020-03-11] MEDS: Naproxen 250 MG Tab PO PRN (20:09)
[2020-03-11] MEDS: Simvastatin 20 MG Tab PO SCH (20:10)
[2020-03-12] MEDS: traMADol 50 MG Tab PO PRN ×2 (01:50→12:47)
[2020-03-12] MEDS: Pantoprazole 40 MG Tab.CR PO SCH (06:18)
[2020-03-12] MEDS: cefTRIAXone 2 GM in Sodium Chloride 0.9% 50 ML IV SCH (07:40)
[2020-03-12] MEDS: Losartan 50 MG Tab PO SCH ×2 (07:40→20:17)
[2020-03-12] MEDS: Aspirin 325 MG Tab.EC PO SCH (07:40)
[2020-03-12] MEDS: amLODIPine 5 MG Tab PO SCH (07:40)
[2020-03-12] MEDS: Loratadine 10 MG Tab PO SCH (07:40)
[2020-03-12] MEDS: Metoprolol Tartrate 50 MG Tab PO SCH ×2 (07:41→20:21)
[2020-03-12] MEDS: Nystatin Topical Powder 15 GM Bottle TOP SCH ×3 (07:42→20:19)
[2020-03-12] MEDS: Acetaminophen/HYDROcodone 325-5 MG Tab PO PRN ×2 (07:46→20:21)
[2020-03-12] MEDS: Lactobacillus Acidophilus/Lactobacillus Sporogenes (Probiotic) Tab PO SCH ×2 (12:42→20:18)
[2020-03-12] MEDS: Zinc (Zinc Gluconate) 50 MG Tab PO SCH (12:42)
[2020-03-12] MEDS: Cholecalciferol (Vitamin D3) 25 MCG Tab PO SCH (12:43)
[2020-03-12] MEDS: Vitamin A 10,000 Unit Cap PO SCH (12:43)
[2020-03-12] MEDS: Ascorbic Acid 500 MG Tab PO SCH (12:43)
[2020-03-12] MEDS: Naproxen 250 MG Tab PO PRN (20:18)
[2020-03-12] MEDS: Simvastatin 20 MG Tab PO SCH (20:19)
[2020-03-13] MEDS: traMADol 50 MG Tab PO PRN ×2 (01:45→13:47)
[2020-03-13] MEDS: Pantoprazole 40 MG Tab.CR PO SCH (06:06)
[2020-03-13] MEDS: cefTRIAXone 2 GM in Sodium Chloride 0.9% 50 ML IV SCH (07:50)
[2020-03-13] MEDS: Nystatin Topical Powder 15 GM Bottle TOP SCH ×3 (07:52→19:33)
[2020-03-13] MEDS: Aspirin 325 MG Tab.EC PO SCH (07:53)
[2020-03-13] MEDS: Loratadine 10 MG Tab PO SCH (07:53)
[2020-03-13] MEDS: amLODIPine 5 MG Tab PO SCH (07:53)
[2020-03-13] MEDS: Metoprolol Tartrate 50 MG Tab PO SCH ×2 (07:59→19:33)
[2020-03-13] MEDS: Losartan 50 MG Tab PO SCH ×2 (07:59→19:32)
[2020-03-13] MEDS: Acetaminophen/HYDROcodone 325-5 MG Tab PO PRN ×2 (08:09→19:37)
[2020-03-13] MEDS: Zinc (Zinc Gluconate) 50 MG Tab PO SCH (12:43)
[2020-03-13] MEDS: Lactobacillus Acidophilus/Lactobacillus Sporogenes (Probiotic) Tab PO SCH ×2 (12:43→19:32)
[2020-03-13] MEDS: Vitamin A 10,000 Unit Cap PO SCH (12:44)
[2020-03-13] MEDS: Cholecalciferol (Vitamin D3) 25 MCG Tab PO SCH (12:44)
[2020-03-13] MEDS: Ascorbic Acid 500 MG Tab PO SCH (12:44)
[2020-03-13] MEDS: Naproxen 250 MG Tab PO PRN (19:32)
[2020-03-13] MEDS: Simvastatin 20 MG Tab PO SCH (19:32)
[2020-03-14] MEDS: traMADol 50 MG Tab PO PRN ×2 (01:49→14:10)
[2020-03-14] MEDS: Pantoprazole 40 MG Tab.CR PO SCH (06:18)
[2020-03-14] MEDS: Losartan 50 MG Tab PO SCH ×2 (07:21→19:40)
[2020-03-14] MEDS: Loratadine 10 MG Tab PO SCH (07:21)
[2020-03-14] MEDS: Metoprolol Tartrate 50 MG Tab PO SCH ×2 (07:21→19:43)
[2020-03-14] MEDS: amLODIPine 5 MG Tab PO SCH (07:22)
[2020-03-14] MEDS: Aspirin 325 MG Tab.EC PO SCH (07:22)
[2020-03-14] MEDS: Nystatin Topical Powder 15 GM Bottle TOP SCH ×3 (07:23→19:40)
[2020-03-14] MEDS: cefTRIAXone 2 GM in Sodium Chloride 0.9% 50 ML IV SCH (07:23)
[2020-03-14] MEDS: Lactobacillus Acidophilus/Lactobacillus Sporogenes (Probiotic) Tab PO SCH ×2 (12:17→19:40)
[2020-03-14] MEDS: Cholecalciferol (Vitamin D3) 25 MCG Tab PO SCH (12:17)
[2020-03-14] MEDS: Ascorbic Acid 500 MG Tab PO SCH (12:17)
[2020-03-14] MEDS: Vitamin A 10,000 Unit Cap PO SCH (12:19)
[2020-03-14] MEDS: Zinc (Zinc Gluconate) 50 MG Tab PO SCH (12:20)
[2020-03-14] MEDS: Naproxen 250 MG Tab PO PRN (19:40)
[2020-03-14] MEDS: Simvastatin 20 MG Tab PO SCH (19:40)
[2020-03-14] MEDS: Acetaminophen/HYDROcodone 325-5 MG Tab PO PRN (19:44)
[2020-03-15] MEDS: traMADol 50 MG Tab PO PRN ×2 (02:00→13:28)
[2020-03-15] MEDS: Pantoprazole 40 MG Tab.CR PO SCH (06:13)
[2020-03-15] MEDS: Losartan 50 MG Tab PO SCH ×2 (07:50→19:30)
[2020-03-15] MEDS: Metoprolol Tartrate 50 MG Tab PO SCH ×2 (07:50→19:30)
[2020-03-15] MEDS: Loratadine 10 MG Tab PO SCH (07:50)
[2020-03-15] MEDS: Aspirin 325 MG Tab.EC PO SCH (07:51)
[2020-03-15] MEDS: amLODIPine 5 MG Tab PO SCH (07:51)
[2020-03-15] MEDS: Acetaminophen/HYDROcodone 325-5 MG Tab PO PRN ×2 (07:51→19:35)
[2020-03-15] MEDS: Nystatin Topical Powder 15 GM Bottle TOP SCH ×3 (07:59→19:35)
[2020-03-15] MEDS: cefTRIAXone 2 GM in Sodium Chloride 0.9% 50 ML IV SCH (08:00)
[2020-03-15] MEDS: Sodium Chloride 0.9% 10 ML Syringe FLUSH PRN (08:30)
--- NOTE | 2020-03-15 10:21 | PCM.PN ---
- General Info Date of Service: 03/15/20 Subjective Update: Patient continues to improve and work with PT/OT. She denies any pain but does have some discomfort with mobility of the hip. No other concerns. She is on her last week of IV antibiotics. Functional Status: Reports: Pain Controlled, Tolerating Diet - Review of Systems General: Reports: Weakness HEENT: Reports: No Symptoms Pulmonary: Reports: No Symptoms Cardiovascular: Reports: No Symptoms Gastrointestinal: Reports: No Symptoms Genitourinary: Reports: No Symptoms Musculoskeletal: Reports: Joint Pain Skin: Reports: No Symptoms Neurological: Reports: Difficulty Walking - Patient Data Vitals - Most Recent: Last Vital Signs Temp 36.6 C 03/15/20 07:50 Pulse 79 03/15/20 07:50 Resp 16 03/15/20 07:50 BP 132/75 03/15/20 07:51 Pulse Ox 100 03/15/20 07:50 Weight - Most Recent: 78.245 kg I&O - Last 24 Hours: Intake & Output 03/14/20 03/15/20 03/15/20 22:59 06:59 14:59 Intake Total 50 Balance 50 Med Orders - Current: Current Medications Hydrocodone Bitart/Acetaminophen ([place] 325-5 Mg) 1 - 2 tab PO Q6HR PRN PRN Reason: Pain (moderate 4-6) Last Admin: 03/15/20 07:51 Dose: 2 tab Documented by: Amlodipine Besylate (Norvasc) 7.5 mg PO DAILY [facility] Last Admin: 03/15/20 07:51 Dose: 7.5 mg Documented by: Ascorbic Acid (Vitamin C) 500 mg PO 1100 [facility] Last Admin: 03/14/20 12:17 Dose: 500 mg Documented by: Aspirin (Ecotrin) 325 mg PO DAILY [facility] Last Admin: 03/15/20 07:51 Dose: 325 mg Documented by: Calamine/Phenol (Calmoseptine) 1 gm TOP QID PRN PRN Reason: Rash Last Admin: 02/19/20 20:46 Dose: 1 applic Documented by: Cholecalciferol (Vitamin D3) 50 mcg PO 1100 [facility] Last Admin: 03/14/20 12:17 Dose: 50 mcg Documented by: Ergocalciferol (Vitamin D2) 1.25 mg PO Q7D [facility] Last Admin: 03/09/20 08:12 Dose: 1.25 mg Documented by: Ceftriaxone Sodium 2 gm/ (Sodium Chloride) 50 mls @ 100 mls/hr IV DAILY [facility] Last Admin: 03/15/20 08:00 Dose: 100 mls/hr Documented by: Lactobacillus Acidophilus (Acidolphilus Extra Strength) 1 tab PO BID@1200,2000 [facility] Last Admin: 03/14/20 19:40 Dose: 1 tab Documented by: Loratadine (Claritin) 10 mg PO DAILY [facility] Last Admin: 03/15/20 07:50 Dose: 10 mg Documented by: Losartan Potassium (Cozaar) 50 mg PO BID [facility] Last Admin: 03/15/20 07:50 Dose: 50 mg Documented by: Metoprolol Tartrate (Lopressor) 50 mg PO BID [facility] Last Admin: 03/15/20 07:50 Dose: 50 mg Documented by: Naproxen (Naprosyn) 250 mg PO Q12HR PRN PRN Reason: Pain Last Admin: 03/14/20 19:40 Dose: 250 mg Documented by: Nystatin (Nystop) 0 gm TOP TID [facility] Last Admin: 03/15/20 07:59 Dose: 1 applic Documented by: Pantoprazole Sodium (Protonix) 40 mg PO ACBREAKFAST [facility] Last Admin: 03/15/20 06:13 Dose: 40 mg Documented by: Senna/Docusate Sodium (Senna Plus) 1 tab PO BID PRN PRN Reason: Constipation Simethicone (Simethicone) 80 mg PO Q6H PRN PRN Reason: Gas Last Admin: 02/13/20 18:00 Dose: 80 mg Documented by: Simvastatin (Zocor) 20 mg PO BEDTIME [facility] Last Admin: 03/14/20 19:40 Dose: 20 mg Documented by: Sodium Chloride (Saline Flush) 10 ml FLUSH SEECOMMENT PRN PRN Reason: IV Use Last Admin: 03/15/20 08:30 Dose: 10 ml Documented by: Tramadol HCl (Ultram) 50 mg PO Q6H PRN PRN Reason: Pain (moderate 4-6) Last Admin: 03/15/20 02:00 Dose: 50 mg Documented by: Vitamin A (Vitamin A) 10,000 units PO 1100 [facility] Last Admin: 03/14/20 12:19 Dose: 10,000 units Documented by: Zinc Gluconate (Zinc) 50 mg PO 1100 [facility] Last Admin: 03/14/20 12:20 Dose: 50 mg Documented by: Discontinued Medications Hydrocodone Bitart/Acetaminophen ([place] 325-5 Mg) Confirm Administered Dose 2 tab .ROUTE .STK-MED ONE Stop: 02/09/20 15:47 Last Admin: 02/09/20 17:02 Dose: Not Given Documented by: Amlodipine Besylate (Norvasc) 5 mg PO DAILY [facility] Last Admin: 02/16/20 07:48 Dose: 5 mg Documented by: Amlodipine Besylate (Norvasc) 2.5 mg PO ONETIME ONE Stop: 02/16/20 11:38 Last Admin: 02/16/20 12:01 Dose: 2.5 mg Documented by: Amlodipine Besylate (Norvasc) Confirm Administered Dose 2.5 mg .ROUTE .STK-MED ONE Stop: 02/16/20 11:47 Last Admin: 02/16/20 12:01 Dose: Not Given Documented by: Amlodipine Besylate (Norvasc) Confirm Administered Dose 5 mg .ROUTE .[facility] ONE Stop: 02/26/20 07:56 Last Admin: 02/26/20 08:01 Dose: Not Given Documented by: Ascorbic Acid (Vitamin C) 500 mg PO DAILY [facility] Last Admin: 02/12/20 07:55 Dose: 500 mg Documented by: Cholecalciferol (Vitamin D3) 50 mcg PO DAILY [facility] Last Admin: 02/12/20 07:56 Dose: 50 mcg Documented by: Pseudoephedrine HCl (Sudafed 12 Hour) 120 mg PO BIDMEALS [facility] Last Admin: 02/11/20 10:20 Dose: Not Given Documented by: Senna/Docusate Sodium (Senna Plus) 1 tab PO BID [facility] Last Admin: 02/13/20 08:11 Dose: Not Given Documented by: Sodium Chloride (Saline Flush) 10 ml FLUSH Q8HR [facility] Last Admin: 02/17/20 20:46 Dose: 10 ml Documented by: Tuberculin PPD (Aplisol) 5 unit IDERM ONETIME ONE Stop: 02/09/20 16:33 Last Admin: 02/09/20 17:47 Dose: 5 unit Documented by: Vitamin A (Vitamin A) 8,000 units PO DAILY [facility] Last Admin: 02/11/20 21:03 Dose: Not Given Documented by: Vitamin A (Vitamin A) 10,000 units PO DAILY [facility] Last Admin: 02/12/20 10:20 Dose: Not Given Documented by: Zinc Gluconate (Zinc) 50 mg PO DAILY [facility] Last Admin: 02/12/20 07:55 Dose: 50 mg Documented by: Zinc Gluconate (Zinc) Confirm Administered Dose 50 mg .ROUTE .STK-MED ONE Stop: 03/04/20 11:59 Last Admin: 03/04/20 12:03 Dose: Not Given Documented by: - Exam General: Alert, Oriented, Cooperative HEENT: Pupils Equal, Pupils Reactive, EOMI Neck: Supple Lungs: Clear to Auscultation, Normal Respiratory Effort Cardiovascular: Regular Rate, Regular Rhythm GI/Abdominal Exam: Normal Bowel Sounds Back Exam: Normal Inspection Extremities: Normal Inspection Sepsis Event Note - Evaluation Sepsis Screening Result: No Definite Risk - Focused Exam Vital Signs: Vital Signs Temp Pulse Pulse Resp BP BP Pulse Ox 03/15/20 07:51 132/75 03/15/20 07:50 36.6 C 79 79 16 132/75 132/75 100 - Problem List & Annotations (1) History of arthroplasty SNOMED Code(s): 004994481, 542629888, 556707910 Code(s): Z98.890 - OTHER SPECIFIED POSTPROCEDURAL STATES Status: Acute Priority: High Current Visit: Yes (2) Infection of prosthetic hip joint SNOMED Code(s): 823731965 Code(s): T84.59XA - INFECT/INFLM REACTION DUE TO OTH INTERNAL JOINT PROSTH, INIT; Z96.649 - PRESENCE OF UNSPECIFIED ARTIFICIAL HIP JOINT Status: Acute Priority: High Current Visit: Yes Annotation/Comment:: Infection of prosthetic left hip joint (3) Generalized weakness SNOMED Code(s): 60811991 Code(s): R53.1 - WEAKNESS Status: Acute Priority: High Current Visit: Yes - Problem List Review Problem List Initiated/Reviewed/Updated: Yes - Plan Plan:: Continue on current IV antibiotics and management. PT/OT management as well. F/u plan of care and pain management. 02/16/20 Patient will continue on current IV antibiotics as scheduled for the next 6 weeks. PT/OT for ambulation and f/u progress. Adjust amlodipine to 7.5mg daily due to elevated BP. Will check BP later today and if elevated to give an extra 2.5mg dose of amlodipine to the current 5 mg given. F/u BP as routine. 02/23/20 Continue current IV Antibiotics. PT/OT management. BP stable - continue monitoring. 03/01/20 Patient doing well with no concerns. PT/OT to continue. Continue IV antibiotics. Continue pedro meds as directed. 03/08/20 No concerns today. Patient improvement daily. We will continue with current care and PT/OT. Continue ABX. 03/15/20 Patient plan of care to be Toe Touch Weight Bearing (TTWB) due to post infection of Left prosthetic hip joint. She currently has a spacer in the left hip fro Orthopedics. Patient unable to use cane or Walker to ambulate to any destination and maintain TTWB. Patient needs a wheelchair to get to the bathroom for ADLs such as grooming, bathing and toileting. Anticipate a short term need for wheelchair until GABRIEL is done again. Wheel chair Rx: Standard w/c with elevating leg rests, seat cushion for comfort, [id number]. Discharge planning to be done this week.
[2020-03-15] MEDS: Lactobacillus Acidophilus/Lactobacillus Sporogenes (Probiotic) Tab PO SCH ×2 (12:29→19:29)
[2020-03-15] MEDS: Cholecalciferol (Vitamin D3) 25 MCG Tab PO SCH (12:29)
[2020-03-15] MEDS: Ascorbic Acid 500 MG Tab PO SCH (12:29)
[2020-03-15] MEDS: Zinc (Zinc Gluconate) 50 MG Tab PO SCH (12:30)
[2020-03-15] MEDS: Vitamin A 10,000 Unit Cap PO SCH (12:30)
[2020-03-15] MEDS: Naproxen 250 MG Tab PO PRN (19:28)
[2020-03-15] MEDS: Simvastatin 20 MG Tab PO SCH (19:29)
[2020-03-16] MEDS: traMADol 50 MG Tab PO PRN ×2 (02:00→15:03)
[2020-03-16] MEDS: Pantoprazole 40 MG Tab.CR PO SCH (06:00)
[2020-03-16] MEDS: Loratadine 10 MG Tab PO SCH (07:26)
[2020-03-16] MEDS: Acetaminophen/HYDROcodone 325-5 MG Tab PO PRN ×2 (07:26→20:27)
[2020-03-16] MEDS: Losartan 50 MG Tab PO SCH ×2 (07:26→20:25)
[2020-03-16] MEDS: amLODIPine 5 MG Tab PO SCH (07:28)
[2020-03-16] MEDS: Metoprolol Tartrate 50 MG Tab PO SCH ×2 (07:28→20:24)
[2020-03-16] MEDS: Nystatin Topical Powder 15 GM Bottle TOP SCH ×3 (07:29→20:25)
[2020-03-16] MEDS: Aspirin 325 MG Tab.EC PO SCH (07:29)
[2020-03-16] MEDS: cefTRIAXone 2 GM in Sodium Chloride 0.9% 50 ML IV SCH (07:29)
[2020-03-16] MEDS ORDERED: Ergocalciferol (Vitamin D2) 1.25 MG Cap ONE (08:40)
[2020-03-16] MEDS: Ergocalciferol (Vitamin D2) 1.25 MG Cap PO SCH (08:41)
[2020-03-16] MEDS: Vitamin A 10,000 Unit Cap PO SCH (11:29)
[2020-03-16] MEDS: Ascorbic Acid 500 MG Tab PO SCH (11:29)
[2020-03-16] MEDS: Zinc (Zinc Gluconate) 50 MG Tab PO SCH (11:29)
[2020-03-16] MEDS: Cholecalciferol (Vitamin D3) 25 MCG Tab PO SCH (11:29)
[2020-03-16] MEDS: Lactobacillus Acidophilus/Lactobacillus Sporogenes (Probiotic) Tab PO SCH ×2 (11:29→20:24)
[2020-03-16] MEDS: Naproxen 250 MG Tab PO PRN (20:24)
[2020-03-16] MEDS: Simvastatin 20 MG Tab PO SCH (20:24)
[2020-03-17] MEDS: traMADol 50 MG Tab PO PRN ×2 (01:45→12:01)
[2020-03-17] MEDS: Pantoprazole 40 MG Tab.CR PO SCH (06:09)
[2020-03-17] MEDS: cefTRIAXone 2 GM in Sodium Chloride 0.9% 50 ML IV SCH (07:34)
[2020-03-17] MEDS: Metoprolol Tartrate 50 MG Tab PO SCH ×2 (07:34→19:25)
[2020-03-17] MEDS: Losartan 50 MG Tab PO SCH ×2 (07:35→19:24)
[2020-03-17] MEDS: Aspirin 325 MG Tab.EC PO SCH (07:35)
[2020-03-17] MEDS: Loratadine 10 MG Tab PO SCH (07:35)
[2020-03-17] MEDS: amLODIPine 5 MG Tab PO SCH (07:35)
[2020-03-17] MEDS: Acetaminophen/HYDROcodone 325-5 MG Tab PO PRN ×3 (07:36→19:26)
[2020-03-17] MEDS: Nystatin Topical Powder 15 GM Bottle TOP SCH ×3 (08:24→19:25)
[2020-03-17] MEDS: Ascorbic Acid 500 MG Tab PO SCH (12:01)
[2020-03-17] MEDS: Cholecalciferol (Vitamin D3) 25 MCG Tab PO SCH (12:01)
[2020-03-17] MEDS: Zinc (Zinc Gluconate) 50 MG Tab PO SCH (12:01)
[2020-03-17] MEDS: Lactobacillus Acidophilus/Lactobacillus Sporogenes (Probiotic) Tab PO SCH ×2 (12:02→19:24)
[2020-03-17] MEDS: Vitamin A 10,000 Unit Cap PO SCH (12:02)
[2020-03-17] MEDS: Simvastatin 20 MG Tab PO SCH (19:25)
[2020-03-17] MEDS: Naproxen 250 MG Tab PO PRN (19:26)
[2020-03-18] MEDS: traMADol 50 MG Tab PO PRN ×2 (02:33→12:56)
[2020-03-18] MEDS: Pantoprazole 40 MG Tab.CR PO SCH (06:01)
[2020-03-18] MEDS: Losartan 50 MG Tab PO SCH ×2 (07:35→19:47)
[2020-03-18] MEDS: amLODIPine 5 MG Tab PO SCH (07:35)
[2020-03-18] MEDS: Aspirin 325 MG Tab.EC PO SCH (07:35)
[2020-03-18] MEDS: Metoprolol Tartrate 50 MG Tab PO SCH ×2 (07:35→19:47)
[2020-03-18] MEDS: Loratadine 10 MG Tab PO SCH (07:36)
[2020-03-18] MEDS: cefTRIAXone 2 GM in Sodium Chloride 0.9% 50 ML IV SCH (07:36)
[2020-03-18] MEDS: Nystatin Topical Powder 15 GM Bottle TOP SCH ×3 (07:40→19:47)
[2020-03-18] MEDS: Acetaminophen/HYDROcodone 325-5 MG Tab PO PRN ×2 (08:19→19:46)
[2020-03-18] MEDS: Vitamin A 10,000 Unit Cap PO SCH (12:00)
[2020-03-18] MEDS: Lactobacillus Acidophilus/Lactobacillus Sporogenes (Probiotic) Tab PO SCH ×2 (12:00→19:46)
[2020-03-18] MEDS: Cholecalciferol (Vitamin D3) 25 MCG Tab PO SCH (12:00)
[2020-03-18] MEDS: Zinc (Zinc Gluconate) 50 MG Tab PO SCH (12:00)
[2020-03-18] MEDS: Ascorbic Acid 500 MG Tab PO SCH (12:00)
[2020-03-18] MEDS: Simvastatin 20 MG Tab PO SCH (19:46)
[2020-03-19] MEDS: traMADol 50 MG Tab PO PRN ×3 (01:59→14:07)
[2020-03-19] MEDS: Pantoprazole 40 MG Tab.CR PO SCH (06:42)
[2020-03-19] MEDS: Sodium Chloride 0.9% 10 ML Syringe FLUSH PRN ×2 (08:02→08:44)
[2020-03-19] MEDS: cefTRIAXone 2 GM in Sodium Chloride 0.9% 50 ML IV SCH (08:02)
[2020-03-19] MEDS: amLODIPine 5 MG Tab PO SCH (08:02)
[2020-03-19] MEDS: Loratadine 10 MG Tab PO SCH (08:03)
[2020-03-19] MEDS: Metoprolol Tartrate 50 MG Tab PO SCH ×2 (08:03→19:24)
[2020-03-19] MEDS: Losartan 50 MG Tab PO SCH ×2 (08:03→19:25)
[2020-03-19] MEDS: Aspirin 325 MG Tab.EC PO SCH (08:03)
[2020-03-19] MEDS: Nystatin Topical Powder 15 GM Bottle TOP SCH ×3 (08:04→19:32)
[2020-03-19] MEDS: Lactobacillus Acidophilus/Lactobacillus Sporogenes (Probiotic) Tab PO SCH ×2 (12:11→19:22)
[2020-03-19] MEDS: Vitamin A 10,000 Unit Cap PO SCH (12:11)
[2020-03-19] MEDS: Cholecalciferol (Vitamin D3) 25 MCG Tab PO SCH (12:12)
[2020-03-19] MEDS: Zinc (Zinc Gluconate) 50 MG Tab PO SCH (12:12)
[2020-03-19] MEDS: Ascorbic Acid 500 MG Tab PO SCH (12:12)
[2020-03-19] MEDS: Simvastatin 20 MG Tab PO SCH (19:22)
[2020-03-19] MEDS: Acetaminophen/HYDROcodone 325-5 MG Tab PO PRN (19:30)
[2020-03-20] MEDS: traMADol 50 MG Tab PO PRN ×3 (01:53→19:29)
[2020-03-20] MEDS: Pantoprazole 40 MG Tab.CR PO SCH (06:47)
[2020-03-20] MEDS: cefTRIAXone 2 GM in Sodium Chloride 0.9% 50 ML IV SCH (08:37)
[2020-03-20] MEDS: Sodium Chloride 0.9% 10 ML Syringe FLUSH PRN ×2 (08:39→09:09)
[2020-03-20] MEDS: Loratadine 10 MG Tab PO SCH (08:46)
[2020-03-20] MEDS: amLODIPine 5 MG Tab PO SCH (08:46)
[2020-03-20] MEDS: Losartan 50 MG Tab PO SCH ×2 (08:47→19:28)
[2020-03-20] MEDS: Metoprolol Tartrate 50 MG Tab PO SCH ×2 (08:47→19:27)
[2020-03-20] MEDS: Aspirin 325 MG Tab.EC PO SCH (08:47)
[2020-03-20] MEDS: Nystatin Topical Powder 15 GM Bottle TOP SCH ×3 (08:49→20:10)
[2020-03-20] MEDS: Vitamin A 10,000 Unit Cap PO SCH (11:58)
[2020-03-20] MEDS: Zinc (Zinc Gluconate) 50 MG Tab PO SCH (11:58)
[2020-03-20] MEDS: Ascorbic Acid 500 MG Tab PO SCH (11:58)
[2020-03-20] MEDS: Lactobacillus Acidophilus/Lactobacillus Sporogenes (Probiotic) Tab PO SCH ×2 (11:58→19:28)
[2020-03-20] MEDS: Cholecalciferol (Vitamin D3) 25 MCG Tab PO SCH (11:58)
[2020-03-20] MEDS: Acetaminophen/HYDROcodone 325-5 MG Tab PO PRN (14:00)
[2020-03-20] MEDS: Simvastatin 20 MG Tab PO SCH (19:29)
[2020-03-21] MEDS: traMADol 50 MG Tab PO PRN ×4 (01:17→19:06)
[2020-03-21] MEDS: Pantoprazole 40 MG Tab.CR PO SCH (06:12)
[2020-03-21] MEDS: cefTRIAXone 2 GM in Sodium Chloride 0.9% 50 ML IV SCH (07:28)
[2020-03-21] MEDS: Sodium Chloride 0.9% 10 ML Syringe FLUSH PRN ×2 (07:28→08:03)
[2020-03-21] MEDS: amLODIPine 5 MG Tab PO SCH (07:29)
[2020-03-21] MEDS: Loratadine 10 MG Tab PO SCH (07:29)
[2020-03-21] MEDS: Losartan 50 MG Tab PO SCH ×2 (07:29→19:04)
[2020-03-21] MEDS: Aspirin 325 MG Tab.EC PO SCH (07:29)
[2020-03-21] MEDS: Nystatin Topical Powder 15 GM Bottle TOP SCH ×3 (07:29→19:08)
[2020-03-21] MEDS: Metoprolol Tartrate 50 MG Tab PO SCH ×2 (07:29→19:03)
[2020-03-21] MEDS: Vitamin A 10,000 Unit Cap PO SCH (11:30)
[2020-03-21] MEDS: Ascorbic Acid 500 MG Tab PO SCH (11:30)
[2020-03-21] MEDS: Cholecalciferol (Vitamin D3) 25 MCG Tab PO SCH (11:30)
[2020-03-21] MEDS: Zinc (Zinc Gluconate) 50 MG Tab PO SCH (11:30)
[2020-03-21] MEDS: Lactobacillus Acidophilus/Lactobacillus Sporogenes (Probiotic) Tab PO SCH ×2 (12:02→19:06)
[2020-03-21] MEDS: Simvastatin 20 MG Tab PO SCH (19:04)
[2020-03-22] MEDS: traMADol 50 MG Tab PO PRN ×3 (01:37→14:16)
[2020-03-22] MEDS: Pantoprazole 40 MG Tab.CR PO SCH (06:12)
[2020-03-22] MEDS: cefTRIAXone 2 GM in Sodium Chloride 0.9% 50 ML IV SCH (07:26)
[2020-03-22] MEDS: Sodium Chloride 0.9% 10 ML Syringe FLUSH PRN ×2 (07:31→08:01)
[2020-03-22] MEDS: Nystatin Topical Powder 15 GM Bottle TOP SCH ×3 (07:32→19:58)
[2020-03-22] MEDS: Metoprolol Tartrate 50 MG Tab PO SCH ×2 (07:33→19:57)
[2020-03-22] MEDS: Losartan 50 MG Tab PO SCH ×2 (07:33→19:56)
[2020-03-22] MEDS: amLODIPine 5 MG Tab PO SCH (07:33)
[2020-03-22] MEDS: Aspirin 325 MG Tab.EC PO SCH (07:34)
[2020-03-22] MEDS: Loratadine 10 MG Tab PO SCH (07:34)
[2020-03-22] MEDS: Cholecalciferol (Vitamin D3) 25 MCG Tab PO SCH (12:06)
[2020-03-22] MEDS: Lactobacillus Acidophilus/Lactobacillus Sporogenes (Probiotic) Tab PO SCH ×2 (12:06→19:56)
[2020-03-22] MEDS: Ascorbic Acid 500 MG Tab PO SCH (12:06)
[2020-03-22] MEDS: Zinc (Zinc Gluconate) 50 MG Tab PO SCH (12:06)
[2020-03-22] MEDS: Vitamin A 10,000 Unit Cap PO SCH (12:06)
[2020-03-22] MEDS: Naproxen 250 MG Tab PO PRN (19:57)
[2020-03-22] MEDS: Simvastatin 20 MG Tab PO SCH (19:57)
[2020-03-22] MEDS: Acetaminophen/HYDROcodone 325-5 MG Tab PO PRN (19:57)
[2020-03-23] MEDS: traMADol 50 MG Tab PO PRN ×2 (02:17→11:16)
[2020-03-23] MEDS: Pantoprazole 40 MG Tab.CR PO SCH (06:09)
[2020-03-23] MEDS: amLODIPine 5 MG Tab PO SCH (07:37)
[2020-03-23] MEDS: Metoprolol Tartrate 50 MG Tab PO SCH ×2 (07:38→19:25)
[2020-03-23] MEDS: Losartan 50 MG Tab PO SCH ×2 (07:38→19:26)
[2020-03-23] MEDS: Nystatin Topical Powder 15 GM Bottle TOP SCH ×3 (07:39→19:29)
[2020-03-23] MEDS: Aspirin 325 MG Tab.EC PO SCH (07:39)
[2020-03-23] MEDS: Ergocalciferol (Vitamin D2) 1.25 MG Cap PO SCH (07:39)
[2020-03-23] MEDS: Loratadine 10 MG Tab PO SCH (07:39)
[2020-03-23] MEDS: Sodium Chloride 0.9% 10 ML Syringe FLUSH PRN (07:40)
[2020-03-23] MEDS: Simethicone 80 MG Tab.Chew PO PRN (09:33)
[2020-03-23] MEDS: Vitamin A 10,000 Unit Cap PO SCH (11:57)
[2020-03-23] MEDS: Zinc (Zinc Gluconate) 50 MG Tab PO SCH (11:57)
[2020-03-23] MEDS: Ascorbic Acid 500 MG Tab PO SCH (11:57)
[2020-03-23] MEDS: Cholecalciferol (Vitamin D3) 25 MCG Tab PO SCH (11:57)
[2020-03-23] MEDS: Lactobacillus Acidophilus/Lactobacillus Sporogenes (Probiotic) Tab PO SCH ×2 (11:57→19:25)
[2020-03-23] MEDS: Acetaminophen/HYDROcodone 325-5 MG Tab PO PRN ×2 (19:22→19:58)
[2020-03-23] MEDS: Naproxen 250 MG Tab PO PRN (19:25)
[2020-03-23] MEDS: Simvastatin 20 MG Tab PO SCH (19:25)
[2020-03-24] MEDS: traMADol 50 MG Tab PO PRN ×2 (01:39→08:06)
[2020-03-24] MEDS: Pantoprazole 40 MG Tab.CR PO SCH (06:23)
[2020-03-24] MEDS: Loratadine 10 MG Tab PO SCH (07:58)
[2020-03-24] MEDS: Losartan 50 MG Tab PO SCH (07:58)
[2020-03-24] MEDS: Aspirin 325 MG Tab.EC PO SCH (07:58)
[2020-03-24] MEDS: amLODIPine 5 MG Tab PO SCH (07:59)
[2020-03-24] MEDS: Metoprolol Tartrate 50 MG Tab PO SCH (07:59)
[2020-03-24 08:01] VITALS: BP 167/73; PULSE 70
[2020-03-24] MEDS: Nystatin Topical Powder 15 GM Bottle TOP SCH (08:01)
--- NOTE | 2020-03-24 10:06 | PCM.DCSUM1 ---
Discharge Summary - Hospital Course Free Text/Narrative:: 69 old female had hip replacement surgery, got infected ,implant removed with spacer in place ,came here for rehabilitation & intravenous antibiotic . Diagnosis: Stroke: No - Discharge Data Discharge Date: 03/24/20 Discharge Disposition: Home, W Home Health Agency 06 Condition: Good - Referral to Home Health Date of Face to Face Encounter: 03/24/20 Reason for Homebound Status: none Primary Care Physician: PCP None Skilled Need: none - Discharge Diagnosis/Problem(s) (1) Infection of prosthetic hip joint SNOMED Code(s): 709851528 ICD Code: T84.59XA - INFECT/INFLM REACTION DUE TO OTH INTERNAL JOINT PROSTH, INIT; Z96.649 - PRESENCE OF UNSPECIFIED ARTIFICIAL HIP JOINT Status: Acute Priority: Medium Current Visit: Yes Problem Details: Infection of prosthetic left hip joint - Patient Summary/Data Consults: Consultations 02/09/20 17:17 OT Evaluation and Treatment [CONS] Routine Please Evaluate and Treat. OT Reason for Consult: ADL's This query below is only for informational purposes and is not editable. Admission Diagnosis/Problem: Weakness PT Evaluation and Treatment [CONS] Routine Please Evaluate and Treat. PT Reason for Consult: Strengthening This query below is only for informational purposes and is not editable. Admission Diagnosis/Problem: Weakness - Patient Instructions Diet: Heart Healthy Diet Driving: Do Not Drive Showering/Bathing: May Shower Wound/Incision Care: Keep Operative Site/Wound Site Clean and Dry - Discharge Plan *PRESCRIPTION DRUG MONITORING PROGRAM REVIEWED*: No *COPY OF PRESCRIPTION DRUG MONITORING REPORT IN PATIENT SUSANA: No Home Medications: Home Meds Losartan Potassium 50 mg PO BID 06/21/14 [History] Metoprolol Tartrate 50 mg PO BID 06/21/14 [History] Simvastatin 20 mg PO BEDTIME 06/21/14 [History] Loratadine/Pseudoephedrine [Claritin-D 24 Hour Tablet] 1 each PO DAILY PRN 06/07/17 [History] Pantoprazole Sodium [Protonix] 40 mg PO DAILY 09/18/19 [History] amLODIPine [Norvasc] 5 mg PO DAILY 09/18/19 [History] Aspirin [Aspirin EC] 325 mg PO DAILY 02/09/20 [History] Ergocalciferol (Vitamin D2) [Vitamin D2] 50,000 unit PO WEEKLY 02/09/20 [History] Hydrocodone/Acetaminophen [Albia 5-325 Tablet] 1 - 2 tab PO Q6HR PRN 02/09/20 [History] Naproxen 250 mg PO Q12HR PRN 02/09/20 [History] Sennosides/Docusate Sodium [Senna Plus 8.6-50 mg Tablet] 1 each PO BID 02/09/20 [History] Vitamin A 8,000 units PO DAILY 02/09/20 [History] cefTRIAXone [Rocephin] 2 gm IV DAILY 02/09/20 [History] traMADol [Ultram] 50 mg PO Q6H PRN 02/09/20 [History] Patient Handouts: Fall Prevention in the Home, Adult, PICC Removal, Adult, Care After - Discharge Summary/Plan Comment DC Time >30 min.: Yes (discharge home ) Discharge Summary/Plan Comment: Discharge home Condition at discharge stable F/ U with primary care C-reactive protein 4.2 ESR 45 Take out I/V before discharge - Patient Data Vitals - Most Recent: Last Vital Signs Temp 98 F 03/24/20 08:00 Pulse 70 03/24/20 08:00 Resp 16 03/24/20 08:00 BP 167/73 H 03/24/20 08:00 Pulse Ox 100 03/24/20 08:00 Weight - Most Recent: 167 lb 12.8 oz Lab Results - Last 24 hrs: Laboratory Results - last 24 hr 03/24/20 03/24/20 Range/Units 09:15 09:15 ESR 45 H (0-30) mm/hr C-Reactive Protein 4.2 H (0.0-3.0) mg/L Med Orders - Current: Current Medications Hydrocodone Bitart/Acetaminophen (Albia 325-5 Mg) 1 - 2 tab PO Q6HR PRN PRN Reason: Pain (moderate 4-6) Last Admin: 03/23/20 19:58 Dose: 1 tab Documented by: Amlodipine Besylate (Norvasc) 7.5 mg PO DAILY [facility] Last Admin: 03/24/20 07:59 Dose: 7.5 mg Documented by: Ascorbic Acid (Vitamin C) 500 mg PO 1100 [facility] Last Admin: 03/23/20 11:57 Dose: 500 mg Documented by: Aspirin (Ecotrin) 325 mg PO DAILY [facility] Last Admin: 03/24/20 07:58 Dose: 325 mg Documented by: Calamine/Phenol (Calmoseptine) 1 gm TOP QID PRN PRN Reason: Rash Last Admin: 02/19/20 20:46 Dose: 1 applic Documented by: Cholecalciferol (Vitamin D3) 50 mcg PO 1100 [facility] Last Admin: 03/23/20 11:57 Dose: 50 mcg Documented by: Ergocalciferol (Vitamin D2) 1.25 mg PO Q7D [facility] Last Admin: 03/23/20 07:39 Dose: 1.25 mg Documented by: Lactobacillus Acidophilus (Acidolphilus Extra Strength) 1 tab PO BID@1200,2000 [facility] Last Admin: 03/23/20 19:25 Dose: 1 tab Documented by: Loratadine (Claritin) 10 mg PO DAILY [facility] Last Admin: 03/24/20 07:58 Dose: 10 mg Documented by: Losartan Potassium (Cozaar) 50 mg PO BID [facility] Last Admin: 03/24/20 07:58 Dose: 50 mg Documented by: Metoprolol Tartrate (Lopressor) 50 mg PO BID [facility] Last Admin: 03/24/20 07:59 Dose: 50 mg Documented by: Naproxen (Naprosyn) 250 mg PO Q12HR PRN PRN Reason: Pain Last Admin: 03/23/20 19:25 Dose: 250 mg Documented by: Nystatin (Nystop) 0 gm TOP TID [facility] Last Admin: 03/24/20 08:01 Dose: 1 applic Documented by: Pantoprazole Sodium (Protonix) 40 mg PO ACBREAKFAST [facility] Last Admin: 03/24/20 06:23 Dose: 40 mg Documented by: Senna/Docusate Sodium (Senna Plus) 1 tab PO BID PRN PRN Reason: Constipation Last Admin: 03/20/20 08:47 Dose: 1 tab Documented by: Simethicone (Simethicone) 80 mg PO Q6H PRN PRN Reason: Gas Last Admin: 03/23/20 09:33 Dose: 80 mg Documented by: Simvastatin (Zocor) 20 mg PO BEDTIME [facility] Last Admin: 03/23/20 19:25 Dose: 20 mg Documented by: Sodium Chloride (Saline Flush) 10 ml FLUSH SEECOMMENT PRN PRN Reason: IV Use Last Admin: 03/23/20 07:40 Dose: 10 ml Documented by: Tramadol HCl (Ultram) 50 mg PO Q6H PRN PRN Reason: Pain (moderate 4-6) Last Admin: 03/24/20 08:06 Dose: 50 mg Documented by: Vitamin A (Vitamin A) 10,000 units PO 1100 [facility] Last Admin: 03/23/20 11:57 Dose: 10,000 units Documented by: Zinc Gluconate (Zinc) 50 mg PO 1100 [facility] Last Admin: 03/23/20 11:57 Dose: 50 mg Documented by: Discontinued Medications Hydrocodone Bitart/Acetaminophen (Albia 325-5 Mg) Confirm Administered Dose 2 tab .ROUTE .STK-MED ONE Stop: 02/09/20 15:47 Last Admin: 02/09/20 17:02 Dose: Not Given Documented by: Amlodipine Besylate (Norvasc) 5 mg PO DAILY [facility] Last Admin: 02/16/20 07:48 Dose: 5 mg Documented by: Amlodipine Besylate (Norvasc) 2.5 mg PO ONETIME ONE Stop: 02/16/20 11:38 Last Admin: 02/16/20 12:01 Dose: 2.5 mg Documented by: Amlodipine Besylate (Norvasc) Confirm Administered Dose 2.5 mg .ROUTE .STK-MED ONE Stop: 02/16/20 11:47 Last Admin: 02/16/20 12:01 Dose: Not Given Documented by: Amlodipine Besylate (Norvasc) Confirm Administered Dose 5 mg .ROUTE .STK-MED ONE Stop: 02/26/20 07:56 Last Admin: 02/26/20 08:01 Dose: Not Given Documented by: Ascorbic Acid (Vitamin C) 500 mg PO DAILY [facility] Last Admin: 02/12/20 07:55 Dose: 500 mg Documented by: Cholecalciferol (Vitamin D3) 50 mcg PO DAILY [facility] Last Admin: 02/12/20 07:56 Dose: 50 mcg Documented by: Ergocalciferol (Vitamin D2) Confirm Administered Dose 1.25 mg .ROUTE .STK-MED ONE Stop: 03/16/20 08:41 Last Admin: 03/16/20 08:41 Dose: Not Given Documented by: Ceftriaxone Sodium 2 gm/ (Sodium Chloride) 50 mls @ 100 mls/hr IV DAILY [facility] Stop: 03/22/20 08:00 Last Admin: 03/22/20 07:26 Dose: 100 mls/hr Documented by: Pseudoephedrine HCl (Sudafed 12 Hour) 120 mg PO BIDMEALS [facility] Last Admin: 02/11/20 10:20 Dose: Not Given Documented by: Senna/Docusate Sodium (Senna Plus) 1 tab PO BID [facility] Last Admin: 02/13/20 08:11 Dose: Not Given Documented by: Sodium Chloride (Saline Flush) 10 ml FLUSH Q8HR [facility] Last Admin: 02/17/20 20:46 Dose: 10 ml Documented by: Tuberculin PPD (Aplisol) 5 unit IDERM ONETIME ONE Stop: 02/09/20 16:33 Last Admin: 02/09/20 17:47 Dose: 5 unit Documented by: Vitamin A (Vitamin A) 8,000 units PO DAILY [facility] Last Admin: 02/11/20 21:03 Dose: Not Given Documented by: Vitamin A (Vitamin A) 10,000 units PO DAILY [facility] Last Admin: 02/12/20 10:20 Dose: Not Given Documented by: Zinc Gluconate (Zinc) 50 mg PO DAILY [facility] Last Admin: 02/12/20 07:55 Dose: 50 mg Documented by: Zinc Gluconate (Zinc) Confirm Administered Dose 50 mg .ROUTE .STK-MED ONE Stop: 03/04/20 11:59 Last Admin: 03/04/20 12:03 Dose: Not Given Documented by:
== END 2020-03-24 10:20 | disposition home or self-care (01) | DRG 950 ==
LOC: UNDOADMIN 14:09 → LB.MS 14:09
PROVIDERS: ADMIT Family Medicine; ATTEND Family Medicine
DX: T84.59XD Infection and inflammatory reaction due to other internal joint prosthesis, subsequent encounter (principal); R53.1 Weakness; H54.7 Unspecified visual loss; F41.9 Anxiety disorder, unspecified; E66.9 Obesity, unspecified; D64.9 Anemia, unspecified; Z88.5 Allergy status to narcotic agent; Z79.82 Long term (current) use of aspirin; Z79.899 Other long term (current) drug therapy; I25.2 Old myocardial infarction; Z95.5 Presence of coronary angioplasty implant and graft; Z98.49 Cataract extraction status, unspecified eye; Z68.30 Body mass index [BMI] 30.0-30.9, adult
CPT/HCPCS: 36415; 80048; 85025; 85651; 86140; 86580; 97110-GO; 97110-GP; 97161-GP; 97165-GO; 97530-GO; 97530-GP; 97535-GO; 97542-GO; 99316; A9270-GY; J0696

== ENCOUNTER 2020-03-25 18:24 | Emergency (ER) | payer MEDICARE, OTHER ==
[~2020-03-25 18:24] MED LIST changes: +Methocarbamol 500 MG Tab ONE; -Metoclopramide 10 MG/2 ML SDV IV PRN; +Ondansetron 4 MG Tab.DIS ONE; -Sodium Chloride 0.9% 1,000 ML IV SCH; -Sodium Chloride 0.9% 10 ML Syringe FLUSH PRN
[2020-03-25 18:32] VITALS: BP 153/95; PULSE 76
[2020-03-25] MEDS ORDERED: Triamcinolone Acetonide 40 MG/ML 1 ML SDV INJECT ONE (18:48)
[2020-03-25] MEDS ORDERED: Lidocaine 2% 100 MG/5 ML Syringe IVPUSH ONE (18:48)
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
[2020-03-25] MEDS ORDERED: Ondansetron 4 MG Tab.DIS PO ONE (19:38)
--- NOTE | 2020-03-26 16:38 | CT ---
DATE OF SERVICE: 03/25/2020 CLINICAL DATA: Extreme shoulder pain Right shoulder and upper arm CT: Multi slice axial acquisition was performed. Axial images and sagittal and coronal reformations are reviewed. No priors. There are mild osteoarthritic changes of the AC joint and glenohumeral joint. No acute fracture or dislocation. No lytic or blastic bone lesions. The soft tissues are unremarkable. No masses. No abnormal fluid collections. There are 2 small subpleural nodules in the right lung. The largest one appears calcified consistent with prior granulomatous disease. The right lung is otherwise clear. MTDD
== END 2020-03-25 20:21 | disposition home or self-care (01) ==
LOC: LB.ED 18:24
DX: M79.621 Pain in right upper arm (principal); M19.90 Unspecified osteoarthritis, unspecified site; I25.2 Old myocardial infarction; E66.9 Obesity, unspecified; Z68.29 Body mass index [BMI] 29.0-29.9, adult; Z79.82 Long term (current) use of aspirin; Z79.899 Other long term (current) drug therapy; Z88.5 Allergy status to narcotic agent
CPT/HCPCS: 20610; 36415; 73200-RT; 80053; 85025; 85379; 85610; 85730; 96372; 99283; 99284-25; A9270-GY; J3301

== ENCOUNTER 2021-07-20 21:37 | Emergency (ER) | payer MEDICARE, OTHER ==
[2021-07-20 23:02] LABS: ESTIMATED GFR > 60 MLS/MIN (>60)
[2021-07-20 23:13] VITALS: BP 175/69; PULSE 98
== END 2021-07-20 23:45 | disposition home or self-care (01) ==
LOC: LB.ED 21:37
DX: S01.01XA Laceration without foreign body of scalp, initial encounter (principal); F10.920 Alcohol use, unspecified with intoxication, uncomplicated; I25.2 Old myocardial infarction; E66.9 Obesity, unspecified; Z68.30 Body mass index [BMI] 30.0-30.9, adult; Z88.5 Allergy status to narcotic agent; Z79.899 Other long term (current) drug therapy; Z79.82 Long term (current) use of aspirin; W19.XXXA Unspecified fall, initial encounter
CPT/HCPCS: 12001; 36415; 70450; 70486; 80048; 80307; 85025; 99282; 99284-25

== ENCOUNTER 2022-05-16 07:27 | Inpatient (IN) | payer MEDICARE ==
[2022-05-16] MEDS ORDERED: Sodium Chloride 0.9% 1,000 ML IV SCH (08:45)
[2022-05-16 09:07] LABS: ESTIMATED GFR 65 mL/min (>60)
[2022-05-16 09:08] LABS: TROPONIN I HIGH SENSITIVITY 117.5 pg/ml (<=60.4)
[2022-05-16] MEDS ORDERED: Potassium Phosphates 3 mMole/ML 15 ML SDV IV STA (09:10)
[2022-05-16] MEDS ORDERED: Potassium Chloride Riders 10 MEQ in Premix Bag 1 BAG IV ONE (10:03)
[2022-05-16] MEDS ORDERED: NS + KCl 20mEq/L 1,000 ML IV SCH (10:15)
[2022-05-16] MEDS ORDERED: Potassium Chloride Riders 50 ML ONE (10:17)
[2022-05-16] MEDS ORDERED: Aspirin 81 MG Tab.Chew PO ONE (10:40)
[2022-05-16] MEDS ORDERED: Potassium Phosphates 20 MMOLE in Sodium Chloride 0.9% 100 ML IV ONE (10:45)
[2022-05-16 14:41] LABS: TROPONIN I HIGH SENSITIVITY 178.2 pg/ml (<=60.4)
[2022-05-16] MEDS ORDERED: Heparin Sodium 5,000 Units/ML Vial IVPUSH ONE (15:30)
[2022-05-16] MEDS ORDERED: Nitroglycerin 0.4 MG Tab.SL SL ONE (15:30)
[2022-05-16] MEDS ORDERED: Metoprolol Tartrate 5 MG/5 ML SDV IVPUSH ONE (15:30)
[2022-05-16] MEDS ORDERED: Metoprolol Tartrate 5 MG/5 ML SDV ONE (16:03)
[2022-05-16] MEDS ORDERED: Heparin Sodium 1,000 Units/ML 10 ML MDV ONE (16:04)
[2022-05-16] MEDS: Heparin Sodium/D5W 25,000 UNITS/500 ML BAG IV SCH (16:12)
[2022-05-16] MEDS ORDERED: LORazepam 2 MG/ML SDV IVPUSH ONE (16:18)
[2022-05-16] MEDS ORDERED: LORazepam 2 MG/ML SDV ONE (16:33)
[2022-05-16] MEDS: traMADol 50 MG Tab PO PRN (19:30)
[2022-05-16] MEDS: Losartan 50 MG Tab PO SCH (20:06)
[2022-05-16] MEDS: Metoprolol Tartrate 50 MG Tab PO SCH (20:07)
[2022-05-16] MEDS ORDERED: Docusate Sodium 100 MG Cap ONE (20:21)
[2022-05-16] MEDS: Ondansetron 4 MG Tab.DIS PO PRN (20:26)
[2022-05-16] MEDS: Melatonin 3 MG Tab PO SCH (20:26)
[2022-05-16] MEDS: Docusate Sodium 100 MG Cap PO SCH (20:27)
[2022-05-16] MEDS: Nitrofurantoin Monohydrate/Macrocrystalline 100 MG Cap PO SCH (20:31)
[2022-05-16] MEDS: CLOTRIMAZOLE PO SCH (21:42)
[2022-05-16] MEDS: Cyclobenzaprine 10 MG Tab PO PRN (21:57)
[2022-05-17] MEDS: Heparin Sodium/D5W 25,000 UNITS/500 ML BAG IV SCH (00:30)
[2022-05-17] MEDS: traMADol 50 MG Tab PO PRN ×3 (01:33→23:01)
[2022-05-17] MEDS: Ondansetron 4 MG Tab.DIS PO PRN ×2 (01:33→09:41)
[2022-05-17] MEDS: CLOTRIMAZOLE PO SCH ×5 (06:09→23:01)
[2022-05-17] MEDS: Docusate Sodium 100 MG Cap PO SCH (07:46)
[2022-05-17] MEDS: amLODIPine 5 MG Tab PO SCH (07:46)
[2022-05-17] MEDS: Pantoprazole 40 MG Tab.CR PO SCH (07:47)
[2022-05-17] MEDS: Losartan 50 MG Tab PO SCH ×2 (07:48→20:09)
[2022-05-17] MEDS: Nitrofurantoin Monohydrate/Macrocrystalline 100 MG Cap PO SCH (07:48)
[2022-05-17] MEDS: Metoprolol Tartrate 50 MG Tab PO SCH ×2 (07:49→20:11)
[2022-05-17 08:36] LABS: TROPONIN I HIGH SENSITIVITY 134.5 pg/ml (<=60.4)
[2022-05-17] MEDS ORDERED: Potassium Phosphates 3 mMole/ML 15 ML SDV IV STA ×2 (08:48)
[2022-05-17] MEDS: Sodium Chloride 0.9% 1,000 ML IV SCH (10:39)
[2022-05-17] MEDS: Potassium Chloride 20 MEQ Tab.ER PO SCH ×2 (10:46→20:10)
[2022-05-17] MEDS: Sulfamethoxazole/Trimethoprim 800-160 MG Tab PO SCH ×2 (10:53→20:12)
[2022-05-17] MEDS ORDERED: SODIUM CHLORIDE IV ONE (11:15)
[2022-05-17] MEDS ORDERED: POTASSIUM PHOSPHATES IV ONE (11:15)
[2022-05-17] MEDS: Diazepam 10 MG Tab PO PRN ×2 (12:08→20:10)
[2022-05-17] MEDS ORDERED: Diazepam 5 MG Tab PO PRN (12:42)
[2022-05-17] MEDS: Melatonin 3 MG Tab PO SCH (20:09)
[2022-05-17] MEDS: Thiamine 100 MG Tab PO SCH (20:09)
[2022-05-17] MEDS: Multivitamin, Childrens Tab.Chew PO SCH (20:12)
[2022-05-18] MEDS: Heparin Sodium/D5W 25,000 UNITS/500 ML BAG IV SCH (02:05)
[2022-05-18] MEDS: traMADol 50 MG Tab PO PRN ×3 (05:01→20:20)
[2022-05-18] MEDS: CLOTRIMAZOLE PO SCH ×5 (05:02→22:54)
[2022-05-18] MEDS: Docusate Sodium 100 MG Cap PO SCH (07:22)
[2022-05-18] MEDS: Sodium Chloride 0.9% 1,000 ML IV SCH (07:25)
[2022-05-18] MEDS: Sulfamethoxazole/Trimethoprim 800-160 MG Tab PO SCH ×2 (07:52→20:18)
[2022-05-18] MEDS: Pantoprazole 40 MG Tab.CR PO SCH (07:53)
[2022-05-18] MEDS: Losartan 50 MG Tab PO SCH ×3 (07:54→20:18)
[2022-05-18] MEDS: Metoprolol Tartrate 50 MG Tab PO SCH ×2 (07:57→20:19)
[2022-05-18] MEDS: Potassium Chloride 20 MEQ Tab.ER PO SCH ×2 (08:00→20:17)
[2022-05-18] MEDS: amLODIPine 5 MG Tab PO SCH (09:10)
[2022-05-18] MEDS ORDERED: Iopamidol 755 Mg/ML 100 ML Bottle IV SCH (10:00)
[2022-05-18] MEDS ORDERED: Sodium Chloride 0.9% 50 ML SDV FLUSH ONE (10:00)
[2022-05-18] MEDS: Cyclobenzaprine 10 MG Tab PO PRN (16:46)
[2022-05-18] MEDS ORDERED: methylPREDNISolone Sodium Succinate 40 MG/1 ML SDV IVPUSH ONE (18:04)
[2022-05-18] MEDS ORDERED: POTASSIUM PHOSPHATES IV SCH (19:15)
[2022-05-18] MEDS ORDERED: SODIUM CHLORIDE IV SCH (19:15)
[2022-05-18] MEDS: Multivitamin, Childrens Tab.Chew PO SCH (20:18)
[2022-05-18] MEDS: Thiamine 100 MG Tab PO SCH (20:19)
[2022-05-18] MEDS: Diazepam 10 MG Tab PO PRN (20:19)
[2022-05-18] MEDS: Melatonin 3 MG Tab PO SCH (20:19)
[2022-05-19] MEDS: traMADol 50 MG Tab PO PRN ×3 (01:45→22:39)
[2022-05-19] MEDS: Cyclobenzaprine 10 MG Tab PO PRN ×2 (02:18→22:41)
[2022-05-19] MEDS: Sodium Chloride 0.9% 1,000 ML IV SCH ×2 (06:09→18:25)
[2022-05-19] MEDS: CLOTRIMAZOLE PO SCH ×5 (06:18→22:37)
[2022-05-19] MEDS: Losartan 50 MG Tab PO SCH ×2 (08:13→19:58)
[2022-05-19] MEDS: Metoprolol Tartrate 50 MG Tab PO SCH ×2 (08:13→20:00)
[2022-05-19] MEDS: Potassium Chloride 20 MEQ Tab.ER PO SCH ×2 (08:14→19:59)
[2022-05-19] MEDS: Sulfamethoxazole/Trimethoprim 800-160 MG Tab PO SCH ×2 (08:14→19:55)
[2022-05-19] MEDS: Docusate Sodium 100 MG Cap PO SCH (08:14)
[2022-05-19] MEDS: Pantoprazole 40 MG Tab.CR PO SCH (08:14)
[2022-05-19] MEDS: amLODIPine 5 MG Tab PO SCH (08:14)
[2022-05-19 09:02] LABS: TROPONIN I HIGH SENSITIVITY 46.8 pg/ml (<=60.4)
[2022-05-19] MEDS: Heparin Sodium/D5W 25,000 UNITS/500 ML BAG IV SCH (12:59)
[2022-05-19] MEDS: Melatonin 3 MG Tab PO SCH (19:55)
[2022-05-19] MEDS: Thiamine 100 MG Tab PO SCH (19:55)
[2022-05-19] MEDS: Diazepam 10 MG Tab PO PRN (19:59)
[2022-05-19] MEDS: Multivitamin, Childrens Tab.Chew PO SCH (19:59)
[2022-05-20] MEDS: CLOTRIMAZOLE PO SCH ×4 (06:43→17:49)
[2022-05-20] MEDS: traMADol 50 MG Tab PO PRN (06:43)
[2022-05-20] MEDS: Sodium Chloride 0.9% 1,000 ML IV SCH (06:44)
[2022-05-20] MEDS: Potassium Chloride 20 MEQ Tab.ER PO SCH ×2 (07:29→20:25)
[2022-05-20] MEDS: Sulfamethoxazole/Trimethoprim 800-160 MG Tab PO SCH ×2 (07:30→20:25)
[2022-05-20] MEDS: Pantoprazole 40 MG Tab.CR PO SCH (07:30)
[2022-05-20] MEDS: Docusate Sodium 100 MG Cap PO SCH (07:30)
[2022-05-20] MEDS: amLODIPine 5 MG Tab PO SCH (07:33)
[2022-05-20] MEDS: Metoprolol Tartrate 50 MG Tab PO SCH ×2 (07:33→20:25)
[2022-05-20] MEDS: Losartan 50 MG Tab PO SCH ×2 (07:33→20:26)
[2022-05-20] MEDS: Enoxaparin 100 MG/1 ML Syringe SUBCUT SCH (10:13)
[2022-05-20] MEDS: Multivitamin, Childrens Tab.Chew PO SCH (20:24)
[2022-05-20] MEDS: Melatonin 3 MG Tab PO SCH (20:26)
[2022-05-20] MEDS: Thiamine 100 MG Tab PO SCH (20:26)
[2022-05-21] MEDS: CLOTRIMAZOLE PO SCH ×4 (00:28→17:31)
[2022-05-21] MEDS: traMADol 50 MG Tab PO PRN ×2 (02:47→20:57)
[2022-05-21] MEDS: Enoxaparin 100 MG/1 ML Syringe SUBCUT SCH (07:42)
[2022-05-21] MEDS: amLODIPine 5 MG Tab PO SCH (07:42)
[2022-05-21] MEDS: Pantoprazole 40 MG Tab.CR PO SCH (07:43)
[2022-05-21] MEDS: Sulfamethoxazole/Trimethoprim 800-160 MG Tab PO SCH ×2 (07:43→20:51)
[2022-05-21] MEDS: Potassium Chloride 20 MEQ Tab.ER PO SCH ×2 (07:44→20:51)
[2022-05-21] MEDS: Losartan 50 MG Tab PO SCH ×2 (07:45→20:52)
[2022-05-21] MEDS: Metoprolol Tartrate 50 MG Tab PO SCH ×2 (07:45→20:58)
[2022-05-21] MEDS: Sodium Chloride 0.9% 10 ML Syringe FLUSH PRN ×2 (07:48→07:49)
[2022-05-21] MEDS: Docusate Sodium 100 MG Cap PO SCH (07:48)
[2022-05-21] MEDS: Gabapentin 100 MG Cap PO SCH ×3 (10:37→21:00)
[2022-05-21] MEDS ORDERED: Lactobacillus Acidophilus/Lactobacillus Sporogenes (Probiotic) Tab ONE ×2 (19:41→20:55)
[2022-05-21] MEDS: Melatonin 3 MG Tab PO SCH (20:51)
[2022-05-21] MEDS: Thiamine 100 MG Tab PO SCH (20:51)
[2022-05-21] MEDS: Diphenhydramine/Lidocaine/Nystatin Suspension 237 ML Bottle PO SCH (20:57)
[2022-05-21] MEDS: Diazepam 10 MG Tab PO PRN (20:58)
[2022-05-21] MEDS: Multivitamin, Childrens Tab.Chew PO SCH (20:58)
[2022-05-22] MEDS: Sodium Chloride 0.9% 10 ML Syringe FLUSH PRN ×4 (07:36→11:39)
[2022-05-22] MEDS: CLOTRIMAZOLE PO SCH ×3 (07:36→13:46)
[2022-05-22] MEDS: Potassium Chloride 20 MEQ Tab.ER PO SCH (07:37)
[2022-05-22] MEDS: Sulfamethoxazole/Trimethoprim 800-160 MG Tab PO SCH (07:38)
[2022-05-22] MEDS: Docusate Sodium 100 MG Cap PO SCH (07:38)
[2022-05-22] MEDS: Pantoprazole 40 MG Tab.CR PO SCH (07:38)
[2022-05-22] MEDS: Enoxaparin 100 MG/1 ML Syringe SUBCUT SCH (07:42)
[2022-05-22] MEDS: Losartan 50 MG Tab PO SCH (10:43)
[2022-05-22] MEDS: Diphenhydramine/Lidocaine/Nystatin Suspension 237 ML Bottle PO SCH ×4 (10:49→19:31)
[2022-05-22] MEDS: Metoprolol Tartrate 50 MG Tab PO SCH ×3 (10:49→19:36)
[2022-05-22] MEDS: amLODIPine 5 MG Tab PO SCH (10:49)
[2022-05-22] MEDS ORDERED: Calcium Gluconate 10% 1 GM/10 ML SDV IVPUSH ONE (11:09)
[2022-05-22] MEDS ORDERED: Insulin Regular, Human 100 Units/ML 3 ML Vial IVPUSH ONE ×2 (11:10→19:47)
[2022-05-22] MEDS ORDERED: Dextrose 10% in Water 500 ML IV SCH (11:15)
[2022-05-22] MEDS ORDERED: Dextrose 10% in Water 500 ML IV ONE (11:30)
[2022-05-22] MEDS: Sodium Polystyrene Sulfonate 15 GM/60 ML Susp 60 ML Bot PO SCH ×3 (11:37→21:16)
[2022-05-22] MEDS ORDERED: Sodium Chloride 0.9% 1,000 ML IV ONE (11:40)
[2022-05-22] MEDS: Melatonin 3 MG Tab PO SCH (19:31)
[2022-05-22] MEDS: traMADol 50 MG Tab PO PRN (19:32)
[2022-05-22] MEDS: Multivitamin, Childrens Tab.Chew PO SCH (19:35)
[2022-05-22] MEDS: Thiamine 100 MG Tab PO SCH (19:35)
[2022-05-22] MEDS ORDERED: Calcium Gluconate 10% 1 GM/10 ML SDV IV ONE (19:47)
[2022-05-22] MEDS ORDERED: 50% Dextrose in Water 50 ML Syringe IVPUSH ONE ×2 (19:47→22:20)
[2022-05-22] MEDS ORDERED: Sodium Bicarbonate 8.4% 50 MEQ/50 ML SDV IVPUSH ONE (19:47)
[2022-05-22] MEDS ORDERED: Sodium Polystyrene Sulfonate 15 GM/60 ML Susp 60 ML Bot ONE (21:05)
[2022-05-23] MEDS: Sodium Chloride 0.9% 1,000 ML IV SCH ×2 (00:33→13:16)
[2022-05-23] MEDS: Sodium Polystyrene Sulfonate 15 GM/60 ML Susp 60 ML Bot PO SCH (05:37)
[2022-05-23] MEDS: Docusate Sodium 100 MG Cap PO SCH (08:20)
[2022-05-23] MEDS: amLODIPine 5 MG Tab PO SCH (08:20)
[2022-05-23] MEDS: Enoxaparin 100 MG/1 ML Syringe SUBCUT SCH (08:20)
[2022-05-23] MEDS: Pantoprazole 40 MG Tab.CR PO SCH (08:20)
[2022-05-23] MEDS: Metoprolol Tartrate 50 MG Tab PO SCH ×2 (08:20→19:43)
[2022-05-23] MEDS: Diphenhydramine/Lidocaine/Nystatin Suspension 237 ML Bottle PO SCH ×4 (08:21→19:42)
[2022-05-23] MEDS ORDERED: Sodium Polystyrene Sulfonate 15 GM/60 ML Susp 60 ML Bot PO ONE (09:39)
[2022-05-23] MEDS ORDERED: Sodium Polystyrene Sulfonate 15 GM/60 ML Susp 60 ML Bot ONE (11:45)
[2022-05-23] MEDS ORDERED: Menthol/Zinc Oxide Ointment 113 GM Tube TOP PRN (15:09)
[2022-05-23] MEDS: Thiamine 100 MG Tab PO SCH (19:43)
[2022-05-23] MEDS: Multivitamin, Childrens Tab.Chew PO SCH (19:43)
[2022-05-23] MEDS: traMADol 50 MG Tab PO PRN (19:46)
[2022-05-24] MEDS: Diphenhydramine/Lidocaine/Nystatin Suspension 237 ML Bottle PO SCH ×4 (08:23→19:48)
[2022-05-24] MEDS: Enoxaparin 100 MG/1 ML Syringe SUBCUT SCH (08:23)
[2022-05-24] MEDS: Docusate Sodium 100 MG Cap PO SCH (08:23)
[2022-05-24] MEDS: Pantoprazole 40 MG Tab.CR PO SCH (08:24)
[2022-05-24] MEDS: amLODIPine 5 MG Tab PO SCH (08:24)
[2022-05-24] MEDS: Metoprolol Tartrate 50 MG Tab PO SCH ×2 (08:24→19:47)
[2022-05-24] MEDS: traMADol 50 MG Tab PO PRN ×2 (08:28→22:06)
[2022-05-24] MEDS: Ferrous Sulfate 325 MG Tab PO SCH (10:51)
[2022-05-24] MEDS: Multivitamin, Childrens Tab.Chew PO SCH (19:47)
[2022-05-24] MEDS: Thiamine 100 MG Tab PO SCH (19:47)
[2022-05-25] MEDS: Pantoprazole 40 MG Tab.CR PO SCH (07:08)
[2022-05-25] MEDS: Docusate Sodium 100 MG Cap PO SCH (07:08)
[2022-05-25] MEDS: Metoprolol Tartrate 50 MG Tab PO SCH (07:08)
[2022-05-25] MEDS: Enoxaparin 100 MG/1 ML Syringe SUBCUT SCH (07:08)
[2022-05-25] MEDS: Ferrous Sulfate 325 MG Tab PO SCH (07:08)
[2022-05-25] MEDS: amLODIPine 5 MG Tab PO SCH (07:08)
[2022-05-25] MEDS: Diphenhydramine/Lidocaine/Nystatin Suspension 237 ML Bottle PO SCH ×3 (07:09→16:30)
[2022-05-25] MEDS: Thiamine 100 MG Tab PO SCH (20:33)
[2022-05-25] MEDS: Multivitamin, Childrens Tab.Chew PO SCH (20:33)
[2022-05-25] MEDS: Metoprolol Tartrate 25 MG Tab PO SCH (20:34)
[2022-05-25] MEDS: traMADol 50 MG Tab PO PRN (20:37)
[2022-05-25] MEDS: Sodium Chloride 0.9% 10 ML Syringe FLUSH PRN (20:37)
[2022-05-26] MEDS: Ferrous Sulfate 325 MG Tab PO SCH (07:35)
[2022-05-26] MEDS: amLODIPine 5 MG Tab PO SCH (07:36)
[2022-05-26] MEDS: Pantoprazole 40 MG Tab.CR PO SCH (07:36)
[2022-05-26] MEDS: Docusate Sodium 100 MG Cap PO SCH (07:36)
[2022-05-26] MEDS: Metoprolol Tartrate 25 MG Tab PO SCH ×2 (07:36→19:38)
[2022-05-26] MEDS: Sodium Chloride 0.9% 10 ML Syringe FLUSH PRN (07:37)
[2022-05-26] MEDS: DULoxetine 20 MG Cap PO SCH (12:00)
[2022-05-26] MEDS: traMADol 50 MG Tab PO PRN (18:06)
[2022-05-26] MEDS: Thiamine 100 MG Tab PO SCH (19:39)
[2022-05-26] MEDS: Multivitamin, Childrens Tab.Chew PO SCH (19:39)
[2022-05-26] MEDS: Apixaban 5 MG Tab PO SCH (19:49)
[2022-05-27] MEDS: Docusate Sodium 100 MG Cap PO SCH (07:06)
[2022-05-27] MEDS: Metoprolol Tartrate 25 MG Tab PO SCH ×2 (07:06→20:13)
[2022-05-27] MEDS: DULoxetine 20 MG Cap PO SCH (07:06)
[2022-05-27] MEDS: Pantoprazole 40 MG Tab.CR PO SCH (07:08)
[2022-05-27] MEDS: amLODIPine 5 MG Tab PO SCH (07:08)
[2022-05-27] MEDS: Apixaban 5 MG Tab PO SCH ×2 (07:09→20:14)
[2022-05-27] MEDS: Ferrous Sulfate 325 MG Tab PO SCH (07:11)
[2022-05-27] MEDS: traMADol 50 MG Tab PO PRN ×2 (11:28→20:20)
[2022-05-27] MEDS: Thiamine 100 MG Tab PO SCH (20:14)
[2022-05-27] MEDS: Multivitamin, Childrens Tab.Chew PO SCH (20:14)
[2022-05-28] MEDS: traMADol 50 MG Tab PO PRN ×2 (03:09→16:35)
[2022-05-28] MEDS: Apixaban 5 MG Tab PO SCH ×2 (08:21→19:39)
[2022-05-28] MEDS: Pantoprazole 40 MG Tab.CR PO SCH (08:21)
[2022-05-28] MEDS: Docusate Sodium 100 MG Cap PO SCH (08:21)
[2022-05-28] MEDS: Ferrous Sulfate 325 MG Tab PO SCH (08:22)
[2022-05-28] MEDS: amLODIPine 5 MG Tab PO SCH (08:22)
[2022-05-28] MEDS: Metoprolol Tartrate 25 MG Tab PO SCH ×2 (08:22→19:38)
[2022-05-28] MEDS: DULoxetine 20 MG Cap PO SCH (08:23)
[2022-05-28] MEDS ORDERED: Metoprolol Tartrate 25 MG Tab ONE (08:26)
[2022-05-28] MEDS: Ondansetron 4 MG Tab.DIS PO PRN (08:59)
[2022-05-28] MEDS: CLOTRIMAZOLE PO SCH ×4 (12:33→21:36)
[2022-05-28] MEDS: Multivitamin, Childrens Tab.Chew PO SCH (19:39)
[2022-05-28] MEDS: Thiamine 100 MG Tab PO SCH (19:39)
[2022-05-29] MEDS: CLOTRIMAZOLE PO SCH (06:32)
[2022-05-29] MEDS: Ferrous Sulfate 325 MG Tab PO SCH (06:32)
[2022-05-29] MEDS: amLODIPine 5 MG Tab PO SCH (08:04)
[2022-05-29] MEDS: Apixaban 5 MG Tab PO SCH ×2 (08:04→19:38)
[2022-05-29] MEDS: Pantoprazole 40 MG Tab.CR PO SCH (08:05)
[2022-05-29] MEDS: Docusate Sodium 100 MG Cap PO SCH (08:05)
[2022-05-29] MEDS: DULoxetine 20 MG Cap PO SCH (08:05)
[2022-05-29] MEDS ORDERED: Metoprolol Tartrate 50 MG Tab ONE (08:11)
[2022-05-29] MEDS: Metoprolol Tartrate 25 MG Tab PO SCH ×2 (08:12→19:38)
[2022-05-29] MEDS: traMADol 50 MG Tab PO PRN ×3 (08:13→19:50)
[2022-05-29] MEDS ORDERED: CLOTRIMAZOLE 10 MG MM SCH (09:45)
[2022-05-29] MEDS ORDERED: TROCHE MM SCH (09:45)
[2022-05-29] MEDS: Multivitamin, Childrens Tab.Chew PO SCH (19:37)
[2022-05-29] MEDS: Thiamine 100 MG Tab PO SCH (19:41)
[2022-05-30] MEDS: DULoxetine 20 MG Cap PO SCH (07:55)
[2022-05-30] MEDS: Docusate Sodium 100 MG Cap PO SCH (07:55)
[2022-05-30] MEDS: Metoprolol Tartrate 25 MG Tab PO SCH (07:56)
[2022-05-30] MEDS ORDERED: Cholecalciferol (Vitamin D3) 2,000 Unit Cap PO SCH (08:00)
[2022-05-30] MEDS: Pantoprazole 40 MG Tab.CR PO SCH (08:01)
[2022-05-30] MEDS: Apixaban 5 MG Tab PO SCH (08:02)
[2022-05-30 08:03] VITALS: BP 154/74; PULSE 88
[2022-05-30] MEDS: Ferrous Sulfate 325 MG Tab PO SCH (08:03)
[2022-05-30] MEDS: amLODIPine 5 MG Tab PO SCH (08:03)
[2022-05-30] MEDS: Ondansetron 4 MG Tab.DIS PO PRN (09:09)
[2022-06-02] MEDS ORDERED: Apixaban 5 MG Tab PO SCH (20:00)
== END 2022-05-30 09:15 | disposition swing bed (61) | DRG 640 ==
LOC: LB.ED 07:27 → LB.MS 16:19 → OBSVTOIN 05-17 13:00
PROVIDERS: ADMIT Surgery; ATTEND Surgery
DX: E87.6 Hypokalemia (principal); I21.4 Non-ST elevation (NSTEMI) myocardial infarction; I26.99 Other pulmonary embolism without acute cor pulmonale; N30.00 Acute cystitis without hematuria; E51.2 Wernicke's encephalopathy; I25.10 Atherosclerotic heart disease of native coronary artery without angina pectoris; F41.9 Anxiety disorder, unspecified; E66.9 Obesity, unspecified; G89.29 Other chronic pain; G62.9 Polyneuropathy, unspecified; E86.0 Dehydration; E87.5 Hyperkalemia; D63.8 Anemia in other chronic diseases classified elsewhere; F10.20 Alcohol dependence, uncomplicated; T73.3XXA Exhaustion due to excessive exertion, initial encounter; E83.42 Hypomagnesemia; M54.50 Low back pain, unspecified; E83.39 Other disorders of phosphorus metabolism; M19.90 Unspecified osteoarthritis, unspecified site; Z68.25 Body mass index [BMI] 25.0-25.9, adult; Z79.899 Other long term (current) drug therapy; Z95.5 Presence of coronary angioplasty implant and graft; Z98.890 Other specified postprocedural states; Z98.49 Cataract extraction status, unspecified eye
CPT/HCPCS: 36415; 70450; 71260; 80048; 81001; 82947; 83735; 84100; 84132; 84484; 85014; 85018; 85025; 85027; 85379; 85610; 85730; 86140; 87086; 93005; 93010; 96125-GN; 96361; 96365; 96366; 96367; 96368; 96375; 97110-GO; 97110-GP; 97116-GP; 97129-GN; 97130-GN; 97162-GP; 97165-GO; 97530-GO; 97530-GP; 97535-GO; 99222; 99232; 99238; 99285-25; A0425; A0429; A9270-GY; G0378; J0612; J1644; J1650; J2060; J2920; J3475; J3480; J3490; J7030; J7060; Q0162; Q9967

== ENCOUNTER 2022-05-29 09:03 | Inpatient (IN) | payer MEDICARE ==
[2022-05-29] MEDS ORDERED: traMADol 50 MG Tab PO PRN (09:52)
[2022-05-29] MEDS ORDERED: CLOTRIMAZOLE 10 MG MM SCH (10:00)
[2022-05-29] MEDS ORDERED: TROCHE MM SCH (10:00)
[2022-05-29] MEDS ORDERED: Metoprolol Tartrate 50 MG Tab PO SCH (20:00)
[2022-05-29] MEDS ORDERED: Losartan 50 MG Tab PO SCH (20:00)
[2022-05-30] MEDS ORDERED: Pantoprazole 40 MG Tab.CR PO SCH (08:00)
[2022-05-30] MEDS ORDERED: Cholecalciferol (Vitamin D3) 2,000 Unit Cap PO SCH (08:00)
[2022-05-30] MEDS ORDERED: Nitrofurantoin Monohydrate/Macrocrystalline 100 MG Cap PO SCH (08:00)
[2022-05-30] MEDS ORDERED: amLODIPine 5 MG Tab PO SCH (08:00)
[2022-05-30] MEDS ORDERED: Tuberculin, PPD 5 Units/0.1 ML 1 ML MDV IDERM ONE (11:16)
[2022-05-30] MEDS: traMADol 50 MG Tab PO PRN (14:04)
[2022-05-30] MEDS: Multivitamins with Iron/Calcium/Folic Acid/Minerals Tab PO SCH (20:01)
[2022-05-30] MEDS: Metoprolol Tartrate 25 MG Tab PO SCH (20:01)
[2022-05-30] MEDS: Apixaban 5 MG Tab PO SCH (20:02)
[2022-05-30] MEDS: Metoprolol Tartrate 50 MG Tab PO SCH (20:04)
[2022-05-31] MEDS: traMADol 50 MG Tab PO PRN ×2 (04:18→17:44)
[2022-05-31] MEDS: Pantoprazole 40 MG Tab.CR PO SCH (07:21)
[2022-05-31] MEDS: Docusate Sodium 100 MG Cap PO SCH (07:21)
[2022-05-31] MEDS: Ferrous Sulfate 325 MG Tab PO SCH (07:21)
[2022-05-31] MEDS: DULoxetine 20 MG Cap PO SCH (07:22)
[2022-05-31] MEDS: Cholecalciferol (Vitamin D3) 2,000 Unit Cap PO SCH (07:22)
[2022-05-31] MEDS: Apixaban 5 MG Tab PO SCH ×2 (07:22→20:07)
[2022-05-31] MEDS: Metoprolol Tartrate 25 MG Tab PO SCH ×2 (07:24→20:08)
[2022-05-31] MEDS: Metoprolol Tartrate 50 MG Tab PO SCH ×2 (07:24→20:09)
[2022-05-31] MEDS: amLODIPine 5 MG Tab PO SCH (07:24)
[2022-05-31] MEDS ORDERED: Metoprolol Tartrate 50 MG Tab PO SCH (08:00)
[2022-05-31] MEDS ORDERED: Apixaban 5 MG Tab PO SCH (08:00)
[2022-05-31] MEDS ORDERED: [UNRECOGNIZED DRUG - REMARK] CHEW SCH (08:00)
[2022-05-31] MEDS ORDERED: THIAMINE MONONITRATE 100 MG PO SCH (08:00)
[2022-05-31] MEDS: Ondansetron 4 MG Tab.DIS PO PRN (08:28)
[2022-05-31] MEDS ORDERED: Thiamine 100 MG Tab PO ONE (15:13)
[2022-05-31] MEDS: Multivitamins with Iron/Calcium/Folic Acid/Minerals Tab PO SCH (20:08)
[2022-06-01] MEDS: traMADol 50 MG Tab PO PRN ×3 (00:35→19:53)
[2022-06-01] MEDS: amLODIPine 5 MG Tab PO SCH (07:47)
[2022-06-01] MEDS: DULoxetine 20 MG Cap PO SCH (07:48)
[2022-06-01] MEDS: Metoprolol Tartrate 25 MG Tab PO SCH ×2 (07:48→19:52)
[2022-06-01] MEDS: Ferrous Sulfate 325 MG Tab PO SCH (07:49)
[2022-06-01] MEDS: Apixaban 5 MG Tab PO SCH ×2 (07:50→19:51)
[2022-06-01] MEDS: Pantoprazole 40 MG Tab.CR PO SCH (07:50)
[2022-06-01] MEDS: Docusate Sodium 100 MG Cap PO SCH (07:51)
[2022-06-01] MEDS: Metoprolol Tartrate 50 MG Tab PO SCH ×2 (07:52→19:52)
[2022-06-01] MEDS: Cholecalciferol (Vitamin D3) 2,000 Unit Cap PO SCH (07:52)
[2022-06-01] MEDS: Thiamine 100 MG Tab PO SCH (19:51)
[2022-06-01] MEDS: Multivitamins with Iron/Calcium/Folic Acid/Minerals Tab PO SCH (19:52)
[2022-06-02] MEDS: traMADol 50 MG Tab PO PRN ×2 (05:20→18:44)
[2022-06-02] MEDS: Apixaban 5 MG Tab PO SCH ×2 (08:20→19:28)
[2022-06-02] MEDS: DULoxetine 20 MG Cap PO SCH (08:20)
[2022-06-02] MEDS: Metoprolol Tartrate 25 MG Tab PO SCH ×2 (08:20→21:02)
[2022-06-02] MEDS: amLODIPine 5 MG Tab PO SCH (08:21)
[2022-06-02] MEDS: Pantoprazole 40 MG Tab.CR PO SCH (08:21)
[2022-06-02] MEDS: Metoprolol Tartrate 50 MG Tab PO SCH ×2 (08:21→21:01)
[2022-06-02] MEDS: Potassium Chloride 10 MEQ Tab.ER PO SCH (11:24)
[2022-06-02] MEDS: Docusate Sodium 100 MG Cap PO SCH (11:24)
[2022-06-02] MEDS: Cholecalciferol (Vitamin D3) 2,000 Unit Cap PO SCH (11:25)
[2022-06-02] MEDS: Ferrous Sulfate 325 MG Tab PO SCH (11:25)
[2022-06-02] MEDS: Ondansetron 4 MG Tab.DIS PO PRN (17:46)
[2022-06-02] MEDS: Thiamine 100 MG Tab PO SCH (19:28)
[2022-06-02] MEDS: Multivitamins with Iron/Calcium/Folic Acid/Minerals Tab PO SCH (19:28)
[2022-06-03] MEDS: traMADol 50 MG Tab PO PRN ×2 (03:35→09:32)
[2022-06-03] MEDS ORDERED: Apixaban 5 MG Tab PO SCH (08:00)
[2022-06-03] MEDS: amLODIPine 5 MG Tab PO SCH (08:32)
[2022-06-03] MEDS: DULoxetine 20 MG Cap PO SCH (08:32)
[2022-06-03] MEDS: Apixaban 5 MG Tab PO SCH ×2 (08:32→19:57)
[2022-06-03] MEDS: Pantoprazole 40 MG Tab.CR PO SCH (08:33)
[2022-06-03] MEDS: Potassium Chloride 10 MEQ Tab.ER PO SCH (08:33)
[2022-06-03] MEDS: Metoprolol Tartrate 25 MG Tab PO SCH ×2 (08:33→19:57)
[2022-06-03] MEDS: Metoprolol Tartrate 50 MG Tab PO SCH ×2 (08:34→19:56)
[2022-06-03] MEDS ORDERED: Acetaminophen 325 MG Tab PO PRN (13:12)
[2022-06-03] MEDS ORDERED: Acetaminophen 325 MG Tab ONE (13:15)
[2022-06-03] MEDS: Ferrous Sulfate 325 MG Tab PO SCH (13:20)
[2022-06-03] MEDS: Docusate Sodium 100 MG Cap PO SCH (13:20)
[2022-06-03] MEDS: Cholecalciferol (Vitamin D3) 2,000 Unit Cap PO SCH (13:20)
[2022-06-03] MEDS: Melatonin 3 MG Tab PO PRN (19:56)
[2022-06-03] MEDS: Thiamine 100 MG Tab PO SCH (19:56)
[2022-06-03] MEDS: Multivitamins with Iron/Calcium/Folic Acid/Minerals Tab PO SCH (19:56)
[2022-06-04] MEDS: traMADol 50 MG Tab PO PRN ×2 (02:47→19:18)
[2022-06-04] MEDS: Pantoprazole 40 MG Tab.CR PO SCH (08:05)
[2022-06-04] MEDS: Potassium Chloride 10 MEQ Tab.ER PO SCH (08:05)
[2022-06-04] MEDS: DULoxetine 20 MG Cap PO SCH (08:05)
[2022-06-04] MEDS: Apixaban 5 MG Tab PO SCH ×2 (08:05→19:16)
[2022-06-04] MEDS: Metoprolol Tartrate 25 MG Tab PO SCH ×2 (08:08→19:15)
[2022-06-04] MEDS: amLODIPine 5 MG Tab PO SCH (08:08)
[2022-06-04] MEDS: Metoprolol Tartrate 50 MG Tab PO SCH ×2 (08:09→19:15)
[2022-06-04] MEDS: Ferrous Sulfate 325 MG Tab PO SCH (12:11)
[2022-06-04] MEDS: Cholecalciferol (Vitamin D3) 2,000 Unit Cap PO SCH (12:11)
[2022-06-04] MEDS: Docusate Sodium 100 MG Cap PO SCH (12:12)
[2022-06-04] MEDS: Multivitamins with Iron/Calcium/Folic Acid/Minerals Tab PO SCH (19:15)
[2022-06-04] MEDS: Thiamine 100 MG Tab PO SCH (19:16)
[2022-06-04] MEDS: Melatonin 3 MG Tab PO PRN (22:47)
[2022-06-05] MEDS: Potassium Chloride 10 MEQ Tab.ER PO SCH (08:03)
[2022-06-05] MEDS: Apixaban 5 MG Tab PO SCH ×2 (08:03→20:25)
[2022-06-05] MEDS: DULoxetine 20 MG Cap PO SCH (08:03)
[2022-06-05] MEDS: Metoprolol Tartrate 50 MG Tab PO SCH ×2 (08:03→20:25)
[2022-06-05] MEDS: Metoprolol Tartrate 25 MG Tab PO SCH ×2 (08:03→20:25)
[2022-06-05] MEDS: Pantoprazole 40 MG Tab.CR PO SCH (08:04)
[2022-06-05] MEDS: amLODIPine 5 MG Tab PO SCH (08:04)
[2022-06-05] MEDS: Ondansetron 4 MG Tab.DIS PO PRN (08:17)
[2022-06-05] MEDS: Docusate Sodium 100 MG Cap PO SCH (11:49)
[2022-06-05] MEDS: Ferrous Sulfate 325 MG Tab PO SCH (11:49)
[2022-06-05] MEDS: Cholecalciferol (Vitamin D3) 2,000 Unit Cap PO SCH (11:49)
[2022-06-05] MEDS: traMADol 50 MG Tab PO PRN ×2 (12:14→18:23)
[2022-06-05] MEDS: Thiamine 100 MG Tab PO SCH (20:25)
[2022-06-05] MEDS: Melatonin 3 MG Tab PO PRN (20:25)
[2022-06-05] MEDS: Multivitamins with Iron/Calcium/Folic Acid/Minerals Tab PO SCH (20:25)
[2022-06-06] MEDS: Metoprolol Tartrate 25 MG Tab PO SCH ×2 (07:58→19:26)
[2022-06-06] MEDS: amLODIPine 5 MG Tab PO SCH (07:58)
[2022-06-06] MEDS: Potassium Chloride 10 MEQ Tab.ER PO SCH (07:58)
[2022-06-06] MEDS: DULoxetine 20 MG Cap PO SCH (07:58)
[2022-06-06] MEDS: Apixaban 5 MG Tab PO SCH ×2 (07:58→19:25)
[2022-06-06] MEDS: Metoprolol Tartrate 50 MG Tab PO SCH ×2 (07:58→19:25)
[2022-06-06] MEDS: Pantoprazole 40 MG Tab.CR PO SCH (07:59)
[2022-06-06] MEDS: Ferrous Sulfate 325 MG Tab PO SCH (12:37)
[2022-06-06] MEDS: Cholecalciferol (Vitamin D3) 2,000 Unit Cap PO SCH (12:37)
[2022-06-06] MEDS: Docusate Sodium 100 MG Cap PO SCH (12:37)
[2022-06-06] MEDS: traMADol 50 MG Tab PO PRN (18:22)
[2022-06-06] MEDS: Thiamine 100 MG Tab PO SCH (19:25)
[2022-06-06] MEDS: Multivitamins with Iron/Calcium/Folic Acid/Minerals Tab PO SCH (19:25)
[2022-06-06] MEDS ORDERED: Ibuprofen 400 MG Tab PO PRN (19:33)
[2022-06-07] MEDS: DULoxetine 20 MG Cap PO SCH (07:36)
[2022-06-07] MEDS: Metoprolol Tartrate 25 MG Tab PO SCH ×2 (07:37→20:14)
[2022-06-07] MEDS: Potassium Chloride 10 MEQ Tab.ER PO SCH (07:37)
[2022-06-07] MEDS: Apixaban 5 MG Tab PO SCH ×2 (07:37→20:17)
[2022-06-07] MEDS: Metoprolol Tartrate 50 MG Tab PO SCH ×2 (07:38→20:16)
[2022-06-07] MEDS: Pantoprazole 40 MG Tab.CR PO SCH (07:39)
[2022-06-07] MEDS: amLODIPine 5 MG Tab PO SCH (07:39)
[2022-06-07] MEDS: traMADol 50 MG Tab PO PRN (10:35)
[2022-06-07] MEDS: Ferrous Sulfate 325 MG Tab PO SCH (12:05)
[2022-06-07] MEDS: Docusate Sodium 100 MG Cap PO SCH (12:05)
[2022-06-07] MEDS: Cholecalciferol (Vitamin D3) 2,000 Unit Cap PO SCH (12:05)
[2022-06-07] MEDS: Gabapentin 100 MG Cap PO SCH ×3 (12:06→20:17)
[2022-06-07] MEDS ORDERED: Menthol/Zinc Oxide Ointment 113 GM Tube TOP ONE (12:12)
[2022-06-07] MEDS: Thiamine 100 MG Tab PO SCH (20:13)
[2022-06-07] MEDS: Multivitamins with Iron/Calcium/Folic Acid/Minerals Tab PO SCH (20:16)
[2022-06-08] MEDS: Gabapentin 100 MG Cap PO SCH ×3 (08:18→20:53)
[2022-06-08] MEDS: Pantoprazole 40 MG Tab.CR PO SCH (08:18)
[2022-06-08] MEDS: Apixaban 5 MG Tab PO SCH ×2 (08:19→20:50)
[2022-06-08] MEDS: amLODIPine 5 MG Tab PO SCH (08:19)
[2022-06-08] MEDS: Potassium Chloride 10 MEQ Tab.ER PO SCH (08:19)
[2022-06-08] MEDS: Metoprolol Tartrate 25 MG Tab PO SCH ×2 (08:19→20:53)
[2022-06-08] MEDS: Metoprolol Tartrate 50 MG Tab PO SCH ×2 (08:19→20:51)
[2022-06-08] MEDS: Menthol/Zinc Oxide Ointment 113 GM Tube TOP SCH ×3 (08:20→20:54)
[2022-06-08] MEDS: DULoxetine 20 MG Cap PO SCH (08:20)
[2022-06-08] MEDS: Ferrous Sulfate 325 MG Tab PO SCH (13:48)
[2022-06-08] MEDS: Cholecalciferol (Vitamin D3) 2,000 Unit Cap PO SCH (13:48)
[2022-06-08] MEDS: Docusate Sodium 100 MG Cap PO SCH (13:48)
[2022-06-08] MEDS: Thiamine 100 MG Tab PO SCH (20:50)
[2022-06-08] MEDS: traMADol 50 MG Tab PO PRN (20:51)
[2022-06-08] MEDS: Multivitamins with Iron/Calcium/Folic Acid/Minerals Tab PO SCH (20:51)
[2022-06-09] MEDS: DULoxetine 20 MG Cap PO SCH (07:05)
[2022-06-09] MEDS: Pantoprazole 40 MG Tab.CR PO SCH (07:05)
[2022-06-09] MEDS: Metoprolol Tartrate 25 MG Tab PO SCH ×2 (07:05→19:54)
[2022-06-09] MEDS: Metoprolol Tartrate 50 MG Tab PO SCH ×2 (07:05→19:55)
[2022-06-09] MEDS: amLODIPine 5 MG Tab PO SCH (07:05)
[2022-06-09] MEDS: Potassium Chloride 10 MEQ Tab.ER PO SCH (07:05)
[2022-06-09] MEDS: Apixaban 5 MG Tab PO SCH ×2 (07:05→19:54)
[2022-06-09] MEDS: Gabapentin 100 MG Cap PO SCH ×3 (07:05→19:57)
[2022-06-09] MEDS: traMADol 50 MG Tab PO PRN ×2 (07:06→19:56)
[2022-06-09] MEDS: Menthol/Zinc Oxide Ointment 113 GM Tube TOP SCH ×2 (07:06→19:56)
[2022-06-09] MEDS: Cholecalciferol (Vitamin D3) 2,000 Unit Cap PO SCH (12:50)
[2022-06-09] MEDS: Docusate Sodium 100 MG Cap PO SCH (12:50)
[2022-06-09] MEDS: Ferrous Sulfate 325 MG Tab PO SCH (12:50)
[2022-06-09] MEDS: Thiamine 100 MG Tab PO SCH (19:53)
[2022-06-09] MEDS: Multivitamins with Iron/Calcium/Folic Acid/Minerals Tab PO SCH (19:53)
[2022-06-10] MEDS: Metoprolol Tartrate 50 MG Tab PO SCH ×2 (07:53→19:37)
[2022-06-10] MEDS: Pantoprazole 40 MG Tab.CR PO SCH (07:54)
[2022-06-10] MEDS: Metoprolol Tartrate 25 MG Tab PO SCH ×2 (07:54→19:38)
[2022-06-10] MEDS: amLODIPine 5 MG Tab PO SCH (07:54)
[2022-06-10] MEDS: Gabapentin 100 MG Cap PO SCH ×3 (07:54→20:09)
[2022-06-10] MEDS: Apixaban 5 MG Tab PO SCH ×2 (07:54→19:36)
[2022-06-10] MEDS: Potassium Chloride 10 MEQ Tab.ER PO SCH (07:54)
[2022-06-10] MEDS: DULoxetine 20 MG Cap PO SCH (07:54)
[2022-06-10] MEDS: Menthol/Zinc Oxide Ointment 113 GM Tube TOP SCH ×2 (07:55→20:09)
[2022-06-10] MEDS: Ferrous Sulfate 325 MG Tab PO SCH (11:51)
[2022-06-10] MEDS: Docusate Sodium 100 MG Cap PO SCH (11:51)
[2022-06-10] MEDS: Cholecalciferol (Vitamin D3) 2,000 Unit Cap PO SCH (11:51)
[2022-06-10] MEDS: Thiamine 100 MG Tab PO SCH (19:37)
[2022-06-10] MEDS: traMADol 50 MG Tab PO PRN (19:39)
[2022-06-10] MEDS: Melatonin 3 MG Tab PO PRN (19:39)
[2022-06-10] MEDS: Multivitamins with Iron/Calcium/Folic Acid/Minerals Tab PO SCH (19:39)
[2022-06-11] MEDS: traMADol 50 MG Tab PO PRN ×2 (08:06→20:01)
[2022-06-11] MEDS: Pantoprazole 40 MG Tab.CR PO SCH (08:06)
[2022-06-11] MEDS: Potassium Chloride 10 MEQ Tab.ER PO SCH (08:06)
[2022-06-11] MEDS: Metoprolol Tartrate 25 MG Tab PO SCH ×2 (08:06→20:00)
[2022-06-11] MEDS: Apixaban 5 MG Tab PO SCH ×2 (08:06→20:00)
[2022-06-11] MEDS: amLODIPine 5 MG Tab PO SCH (08:06)
[2022-06-11] MEDS: DULoxetine 20 MG Cap PO SCH (08:06)
[2022-06-11] MEDS: Gabapentin 100 MG Cap PO SCH ×3 (08:06→20:00)
[2022-06-11] MEDS: Metoprolol Tartrate 50 MG Tab PO SCH ×2 (08:07→20:01)
[2022-06-11] MEDS: Menthol/Zinc Oxide Ointment 113 GM Tube TOP SCH ×2 (08:07→20:03)
[2022-06-11] MEDS: Ferrous Sulfate 325 MG Tab PO SCH (12:36)
[2022-06-11] MEDS: Docusate Sodium 100 MG Cap PO SCH (12:36)
[2022-06-11] MEDS: Cholecalciferol (Vitamin D3) 2,000 Unit Cap PO SCH (12:36)
[2022-06-11] MEDS: Melatonin 3 MG Tab PO PRN (19:59)
[2022-06-11] MEDS: Multivitamins with Iron/Calcium/Folic Acid/Minerals Tab PO SCH (20:00)
[2022-06-11] MEDS: Thiamine 100 MG Tab PO SCH (20:01)
[2022-06-12] MEDS: Apixaban 5 MG Tab PO SCH (08:03)
[2022-06-12] MEDS: Pantoprazole 40 MG Tab.CR PO SCH (08:04)
[2022-06-12] MEDS: amLODIPine 5 MG Tab PO SCH (08:04)
[2022-06-12] MEDS: DULoxetine 20 MG Cap PO SCH (08:05)
[2022-06-12] MEDS: Metoprolol Tartrate 25 MG Tab PO SCH (08:05)
[2022-06-12] MEDS: Gabapentin 100 MG Cap PO SCH ×2 (08:05→12:59)
[2022-06-12] MEDS: Potassium Chloride 10 MEQ Tab.ER PO SCH (08:05)
[2022-06-12 08:06] VITALS: BP 131/74
[2022-06-12] MEDS: Metoprolol Tartrate 50 MG Tab PO SCH (08:06)
[2022-06-12] MEDS: Menthol/Zinc Oxide Ointment 113 GM Tube TOP SCH (08:07)
[2022-06-12 08:18] VITALS: PULSE 98
[2022-06-12] MEDS: Docusate Sodium 100 MG Cap PO SCH (12:59)
[2022-06-12] MEDS: Ferrous Sulfate 325 MG Tab PO SCH (12:59)
[2022-06-12] MEDS: traMADol 50 MG Tab PO PRN (13:00)
[2022-06-12] MEDS: Cholecalciferol (Vitamin D3) 2,000 Unit Cap PO SCH (13:00)
== END 2022-06-12 13:44 | disposition home or self-care (01) | DRG 948 ==
LOC: UNDOADMIN 09:29 → LB.MS 09:29 → UNDOADMIN 09:51 → LB.MS 09:51
PROVIDERS: ADMIT Physician Assistant; ATTEND Physician Assistant
DX: R53.81 Other malaise (principal); E51.2 Wernicke's encephalopathy; T73.3XXA Exhaustion due to excessive exertion, initial encounter; R12 Heartburn; E86.0 Dehydration; R53.83 Other fatigue; Z79.01 Long term (current) use of anticoagulants; Z79.899 Other long term (current) drug therapy
CPT/HCPCS: 36415; 80048; 80053; 81001; 82306; 83690; 85025; 86580; 87086; 97110-GO; 97110-GP; 97116-GP; 97129-GN; 97130-GN; 97530-GO; 97530-GP; 97535-GO; 99305; 99308; 99316; A9270-GY; Q0162

== ENCOUNTER 2022-06-15 05:29 | Emergency (ER) | payer MEDICARE ==
[2022-06-15 04:52] LABS: BASOPHILS ABSOLUTE AUTO 0.01 K/uL (0.02-0.10); BASOPHILS PERCENT AUTO 0.1 % (0.0-0.5); EOSINOPHILS ABSOLUTE AUTO 0.02 K/uL (0.04-0.40); EOSINOPHILS PERCENT AUTO 0.2 % (1.0-5.0); HEMATOCRIT 30.5 % (37.0-47.0); HEMOGLOBIN 10.1 g/dL (11.5-16.5); LYMPHOCYTES ABSOLUTE AUTO 0.92 K/uL (1.50-4.00); LYMPHOCYTES PERCENT AUTO 8.5 % (20.0-40.0); MEAN CORPUSCULAR HGB CONC 33.1 g/dL (31.0-35.0); MEAN CORPUSCULAR VOLUME 97 fL (76-96); MEAN PLATELET VOLUME 9.9 fL (6.0-10.0); MONOCYTES ABSOLUTE AUTO 0.99 K/uL (0.20-0.80); MONOCYTES PERCENT AUTO 9.2 % (3.0-10.0); NEUTROPHILS ABSOLUTE AUTO 8.87 K/uL (2.00-7.50); PLATELET COUNT,PLT 269 K/uL (150-500); RED BLOOD CELL COUNT 3.16 M/uL (3.80-5.80); RED CELL DISTRIBUTION WIDTH 13.1 % (11.0-16.0); WHITE BLOOD CELL COUNT,WBC 10.8 K/uL (4.0-11.0)
[2022-06-15 05:05] LABS: A/G RATIO 0.6 (0.8-2.0); ALBUMIN 2.3 g/dL (3.4-5.0); ANION GAP 14.2 mmol/L (5.0-15.0); BILIRUBIN TOTAL 0.9 mg/dL (0.0-1.0); BUN/CREATININE RATIO 9.5 (6-25); CALCIUM 8.4 mg/dL (8.5-10.1); CARBON DIOXIDE,CO2 21.3 mmol/L (21.0-32.0); CREATININE 1.05 mg/dL (0.55-1.02); EST CRCL DRUG DOSING (CG) 38.3 mL/min; POTASSIUM,K 4.5 mmol/L (3.5-5.1); PROTEIN TOTAL,TP 6.1 g/dL (6.4-8.2); TROPONIN I HIGH SENSITIVITY 8.4 pg/ml (<=60.4)
[~2022-06-15 05:29] MED LIST changes: +Aspirin 81 MG Tab.Chew PO ONE; -Methocarbamol 500 MG Tab ONE; -Ondansetron 4 MG Tab.DIS ONE; +Ondansetron 4 MG/2 ML SDV IVPUSH PRN; +fentaNYL 100 MCG/2 ML SDV IVPUSH PRN
[2022-06-15 11:23] VITALS: BP 121/61; PULSE 116
== END 2022-06-15 09:48 | disposition home or self-care (01) ==
LOC: LB.ED 09:48
DX: R07.9 Chest pain, unspecified (principal); I10 Essential (primary) hypertension; I25.2 Old myocardial infarction; E66.9 Obesity, unspecified; Z68.36 Body mass index [BMI] 36.0-36.9, adult; Z79.01 Long term (current) use of anticoagulants
CPT/HCPCS: 36415; 71045; 80053; 84484; 85025; 93005; 93010; 99283; 99285; A0425; A0429; A9270-GY

== ENCOUNTER 2022-08-02 15:13 | Emergency (ER) | payer MEDICARE ==
[2022-08-02] MEDS ORDERED: Sodium Chloride 0.9% 1,000 ML IV ONE (15:37)
[2022-08-02 16:10] LABS: BASOPHILS ABSOLUTE AUTO 0.01 K/uL (0.02-0.10); BASOPHILS PERCENT AUTO 0.2 % (0.0-0.5); EOSINOPHILS ABSOLUTE AUTO 0.02 K/uL (0.04-0.40); EOSINOPHILS PERCENT AUTO 0.3 % (1.0-5.0); HEMATOCRIT 35.7 % (37.0-47.0); HEMOGLOBIN 12.2 g/dL (11.5-16.5); LYMPHOCYTES ABSOLUTE AUTO 0.95 K/uL (1.50-4.00); LYMPHOCYTES PERCENT AUTO 16.3 % (20.0-40.0); MEAN CORPUSCULAR HEMOGLOBIN 31.4 pg (27.0-32.0); MEAN CORPUSCULAR HGB CONC 34.2 g/dL (31.0-35.0); MEAN CORPUSCULAR VOLUME 92 fL (76-96); MEAN PLATELET VOLUME 9.6 fL (6.0-10.0); MONOCYTES ABSOLUTE AUTO 0.95 K/uL (0.20-0.80); MONOCYTES PERCENT AUTO 16.3 % (3.0-10.0); NEUTROPHILS PERCENT AUTO 66.9 % (45.0-70.0); PLATELET COUNT,PLT 178 K/uL (150-500); RED BLOOD CELL COUNT 3.88 M/uL (3.80-5.80); RED CELL DISTRIBUTION WIDTH 15.4 % (11.0-16.0); WHITE BLOOD CELL COUNT,WBC 5.8 K/uL (4.0-11.0)
[2022-08-02 16:34] LABS: A/G RATIO 0.5 (0.8-2.0); ALBUMIN 2.4 g/dL (3.4-5.0); ANION GAP 16.9 mmol/L (5.0-15.0); BILIRUBIN TOTAL 0.7 mg/dL (0.0-1.0); BUN/CREATININE RATIO 6.9 (6-25); CALCIUM 8.9 mg/dL (8.5-10.1); CARBON DIOXIDE,CO2 25.2 mmol/L (21.0-32.0); CREATININE 0.87 mg/dL (0.55-1.02); EST CRCL DRUG DOSING (CG) 48.35 mL/min; POTASSIUM,K 4.1 mmol/L (3.5-5.1); PROTEIN TOTAL,TP 6.9 g/dL (6.4-8.2)
[2022-08-02 19:39] VITALS: BP 159/89; PULSE 116
== END 2022-08-02 19:15 | disposition home or self-care (01) ==
LOC: LB.ED 15:13
DX: E86.0 Dehydration (principal); I10 Essential (primary) hypertension; E66.9 Obesity, unspecified; Z68.22 Body mass index [BMI] 22.0-22.9, adult; Z79.899 Other long term (current) drug therapy
CPT/HCPCS: 36415; 74176; 80053; 83690; 85025; 96360; 96361; 99285; J7030

== ENCOUNTER 2022-09-30 18:15 | Emergency (ER) | payer MEDICARE ==
[2022-09-30] MEDS ORDERED: Ondansetron 4 MG/2 ML SDV IVPUSH PRN (19:00)
[2022-09-30 19:02] LABS: BASOPHILS ABSOLUTE AUTO 0.01 K/uL (0.02-0.10); BASOPHILS PERCENT AUTO 0.2 % (0.0-0.5); EOSINOPHILS ABSOLUTE AUTO 0.02 K/uL (0.04-0.40); EOSINOPHILS PERCENT AUTO 0.4 % (1.0-5.0); HEMATOCRIT 35.9 % (37.0-47.0); HEMOGLOBIN 12.1 g/dL (11.5-16.5); LYMPHOCYTES ABSOLUTE AUTO 1.27 K/uL (1.50-4.00); LYMPHOCYTES PERCENT AUTO 22.5 % (20.0-40.0); MEAN CORPUSCULAR HEMOGLOBIN 31.6 pg (27.0-32.0); MEAN CORPUSCULAR HGB CONC 33.7 g/dL (31.0-35.0); MEAN CORPUSCULAR VOLUME 94 fL (76-96); MEAN PLATELET VOLUME 9.5 fL (6.0-10.0); MONOCYTES ABSOLUTE AUTO 0.52 K/uL (0.20-0.80); MONOCYTES PERCENT AUTO 9.2 % (3.0-10.0); NEUTROPHILS ABSOLUTE AUTO 3.82 K/uL (2.00-7.50); NEUTROPHILS PERCENT AUTO 67.7 % (45.0-70.0); PLATELET COUNT,PLT 280 K/uL (150-500); RED BLOOD CELL COUNT 3.83 M/uL (3.80-5.80); RED CELL DISTRIBUTION WIDTH 13.9 % (11.0-16.0); WHITE BLOOD CELL COUNT,WBC 5.6 K/uL (4.0-11.0)
[2022-09-30 19:09] VITALS: BP 110/83; PULSE 85
[2022-09-30 19:24] LABS: PROTHROMBIN TIME 10.8 sec (9.0-11.5)
[2022-09-30 19:25] LABS: A/G RATIO 0.6 (0.8-2.0); ALBUMIN 2.5 g/dL (3.4-5.0); ANION GAP 20.5 mmol/L (5.0-15.0); BILIRUBIN TOTAL 1.2 mg/dL (0.0-1.0); BUN/CREATININE RATIO 17.2 (6-25); CALCIUM 8.8 mg/dL (8.5-10.1); CARBON DIOXIDE,CO2 20.6 mmol/L (21.0-32.0); CREATININE 0.87 mg/dL (0.55-1.02); EST CRCL DRUG DOSING (CG) 47.64 mL/min; POTASSIUM,K 4.1 mmol/L (3.5-5.1); PROTEIN TOTAL,TP 6.9 g/dL (6.4-8.2)
[2022-09-30 19:37] LABS: TROPONIN I HIGH SENSITIVITY 60.5 pg/ml (<=60.4)
[2022-09-30] MEDS ORDERED: Sodium Chloride 0.9% 1,000 ML IV SCH (19:45)
[2022-09-30] MEDS ORDERED: Sodium Chloride 0.9% 1,000 ML IV ONE (19:50)
[2022-09-30 20:24] LABS: BASE EXCESS VENOUS -5.1 mm/L (-2-3); BICARBONATE,VENOUS 21.1 mmol/L (23.0-28.0); PCO2 VENOUS 41.6 mm/Hg (41-51); PH,VENOUS 7.31 (7.31-7.41)
[2022-09-30] MEDS ORDERED: Dextrose 5%-0.45% NaCl 500 ML IV SCH (20:30)
[2022-09-30 21:56] LABS: APPEARANCE,URINE CLOUDY (CLEAR); BILIRUBIN,URINE MODERATE (NEGATIVE); GLUCOSE,URINE NEGATIVE (NEGATIVE); KETONES,URINE TRACE mg/dL (NEGATIVE); LEUKOCYTE ESTERASE,URINE LARGE (NEGATIVE); NITRITE,URINE NEGATIVE (NEGATIVE); OCCULT BLOOD,URINE TRACE-INTACT (NEGATIVE); PH,URINE 7.5 (5.0-8.0); PROTEIN,URINE 30 mg/dL (NEGATIVE)
[2022-09-30 21:59] LABS: COLOR,URINE YELLOW
[2022-09-30] MEDS ORDERED: cefTRIAXone 1 GM Vial IM ONE (22:00)
[2022-09-30 22:01] LABS: A/G RATIO 0.5 (0.8-2.0); ALBUMIN 2.2 g/dL (3.4-5.0); ANION GAP 15.4 mmol/L (5.0-15.0); BILIRUBIN TOTAL 1.2 mg/dL (0.0-1.0); BUN/CREATININE RATIO 17.3 (6-25); CALCIUM 7.8 mg/dL (8.5-10.1); CARBON DIOXIDE,CO2 22.7 mmol/L (21.0-32.0); CREATININE 0.81 mg/dL (0.55-1.02); EST CRCL DRUG DOSING (CG) 51.17 mL/min; POTASSIUM,K 4.1 mmol/L (3.5-5.1); PROTEIN TOTAL,TP 6.5 g/dL (6.4-8.2)
[2022-09-30 22:01] LABS: EPITHELIAL CELLS,URINE OCCASIONAL /HPF; WBC,URINE 40-50 /HPF
[2022-09-30 22:07] LABS: TROPONIN I HIGH SENSITIVITY 62.8 pg/ml (<=60.4)
== END 2022-09-30 22:25 | disposition critical access hospital (66) ==
LOC: LB.ED 18:15
DX: E86.0 Dehydration (principal); E87.1 Hypo-osmolality and hyponatremia; N39.0 Urinary tract infection, site not specified; R53.81 Other malaise; I10 Essential (primary) hypertension; E66.9 Obesity, unspecified; Z68.21 Body mass index [BMI] 21.0-21.9, adult; Z79.899 Other long term (current) drug therapy; Z79.01 Long term (current) use of anticoagulants
CPT/HCPCS: 36415; 74176; 80053; 81001; 82803; 83605; 83690; 83735; 84484; 85025; 85610; 85730; 87086; 87493; 93005; 96361; 96365; 96372; 96375; 99285-25; A0425; A0429; C1758; J0696; J2405; J7030

== ENCOUNTER 2022-09-30 22:15 | Inpatient (IN) | payer MEDICARE ==
[2022-09-30] MEDS ORDERED: traMADol 50 MG Tab PO PRN (23:09)
[2022-09-30] MEDS ORDERED: Sennosides/Docusate Sodium 50-8.6 MG Tab PO PRN (23:09)
[2022-09-30] MEDS ORDERED: Ondansetron 4 MG Tab.DIS PO PRN (23:09)
[2022-09-30] MEDS ORDERED: Acetaminophen 325 MG Tab PO PRN (23:15)
[2022-09-30] MEDS: Sodium Chloride 0.9% 1,000 ML IV SCH (23:30)
[2022-09-30] MEDS: cefTRIAXone 1 GM in Sodium Chloride 0.9% 50 ML IV SCH (23:33)
[2022-10-01] MEDS ORDERED: Pantoprazole 40 MG Tab.CR PO SCH (08:00)
[2022-10-01] MEDS ORDERED: Metoprolol Tartrate 50 MG Tab PO SCH (08:00)
[2022-10-01] MEDS ORDERED: DULoxetine 20 MG Cap PO SCH (08:00)
[2022-10-01] MEDS ORDERED: Apixaban 5 MG Tab PO SCH (08:00)
[2022-10-01] MEDS ORDERED: amLODIPine 5 MG Tab PO SCH (08:00)
[2022-10-01] MEDS ORDERED: Ferrous Gluconate 324 MG Tab PO SCH (08:00)
[2022-10-01 08:10] LABS: BASOPHILS ABSOLUTE AUTO 0.01 K/uL (0.02-0.10); BASOPHILS PERCENT AUTO 0.1 % (0.0-0.5); EOSINOPHILS ABSOLUTE AUTO 0.02 K/uL (0.04-0.40); EOSINOPHILS PERCENT AUTO 0.2 % (1.0-5.0); HEMATOCRIT 30.7 % (37.0-47.0); HEMOGLOBIN 10.6 g/dL (11.5-16.5); LYMPHOCYTES ABSOLUTE AUTO 0.59 K/uL (1.50-4.00); LYMPHOCYTES PERCENT AUTO 5.8 % (20.0-40.0); MEAN CORPUSCULAR HEMOGLOBIN 32.4 pg (27.0-32.0); MEAN CORPUSCULAR HGB CONC 34.5 g/dL (31.0-35.0); MEAN CORPUSCULAR VOLUME 94 fL (76-96); MEAN PLATELET VOLUME 9.6 fL (6.0-10.0); MONOCYTES ABSOLUTE AUTO 0.68 K/uL (0.20-0.80); MONOCYTES PERCENT AUTO 6.7 % (3.0-10.0); NEUTROPHILS ABSOLUTE AUTO 8.91 K/uL (2.00-7.50); NEUTROPHILS PERCENT AUTO 87.2 % (45.0-70.0); PLATELET COUNT,PLT 237 K/uL (150-500); RED BLOOD CELL COUNT 3.27 M/uL (3.80-5.80); RED CELL DISTRIBUTION WIDTH 13.7 % (11.0-16.0); WHITE BLOOD CELL COUNT,WBC 10.2 K/uL (4.0-11.0)
[2022-10-01 08:43] LABS: A/G RATIO 0.5 (0.8-2.0); ANION GAP 14.6 mmol/L (5.0-15.0); BILIRUBIN TOTAL 0.5 mg/dL (0.0-1.0); BUN/CREATININE RATIO 18.2 (6-25); CALCIUM 7.6 mg/dL (8.5-10.1); CARBON DIOXIDE,CO2 23.3 mmol/L (21.0-32.0); CREATININE 0.77 mg/dL (0.55-1.02); EST CRCL DRUG DOSING (CG) 50.54 mL/min; POTASSIUM,K 3.9 mmol/L (3.5-5.1); TROPONIN I HIGH SENSITIVITY 47.2 pg/ml (<=60.4)
[2022-10-01] MEDS: Metoclopramide 10 MG/2 ML SDV IVPUSH SCH ×3 (09:58→21:47)
[2022-10-01] MEDS: Zinc Oxide 20% Oint 56.7 GM Tube TOP PRN (09:59)
[2022-10-01] MEDS: Calcium Carbonate/Vitamin D3 600 MG-200 Units Tab PO SCH ×2 (10:06→10:20)
[2022-10-01] MEDS: Potassium Chloride 10 MEQ Tab.ER PO SCH ×2 (10:07→10:13)
[2022-10-01] MEDS ORDERED: Cholecalciferol (Vitamin D3) 2,000 Unit Cap PO SCH ×2 (12:00→13:00)
[2022-10-01] MEDS: Sodium Chloride 0.9% 1,000 ML IV SCH (12:44)
[2022-10-01] MEDS: cefTRIAXone 1 GM in Sodium Chloride 0.9% 50 ML IV SCH (23:20)
[2022-10-02] MEDS: Sodium Chloride 0.9% 1,000 ML IV SCH (02:44)
[2022-10-02] MEDS: Metoclopramide 10 MG/2 ML SDV IVPUSH SCH (04:00)
[2022-10-02] MEDS: Zinc Oxide 20% Oint 56.7 GM Tube TOP PRN (04:01)
[2022-10-02 06:06] LABS: EOSINOPHILS ABSOLUTE AUTO 0.04 K/uL (0.04-0.40); EOSINOPHILS PERCENT AUTO 1.1 % (1.0-5.0); HEMOGLOBIN 9.2 g/dL (11.5-16.5); LYMPHOCYTES ABSOLUTE AUTO 0.46 K/uL (1.50-4.00); LYMPHOCYTES PERCENT AUTO 12.7 % (20.0-40.0); MEAN CORPUSCULAR HEMOGLOBIN 32.1 pg (27.0-32.0); MEAN CORPUSCULAR HGB CONC 34.1 g/dL (31.0-35.0); MEAN CORPUSCULAR VOLUME 94 fL (76-96); MEAN PLATELET VOLUME 9.4 fL (6.0-10.0); MONOCYTES ABSOLUTE AUTO 0.34 K/uL (0.20-0.80); MONOCYTES PERCENT AUTO 9.4 % (3.0-10.0); NEUTROPHILS ABSOLUTE AUTO 2.79 K/uL (2.00-7.50); NEUTROPHILS PERCENT AUTO 76.8 % (45.0-70.0); PLATELET COUNT,PLT 180 K/uL (150-500); RED BLOOD CELL COUNT 2.87 M/uL (3.80-5.80); RED CELL DISTRIBUTION WIDTH 13.7 % (11.0-16.0); WHITE BLOOD CELL COUNT,WBC 3.6 K/uL (4.0-11.0)
[2022-10-02 06:23] LABS: A/G RATIO 0.5 (0.8-2.0); ALBUMIN 1.9 g/dL (3.4-5.0); ANION GAP 14.8 mmol/L (5.0-15.0); BILIRUBIN TOTAL 0.4 mg/dL (0.0-1.0); BUN/CREATININE RATIO 12.1 (6-25); CALCIUM 7.2 mg/dL (8.5-10.1); CARBON DIOXIDE,CO2 22.9 mmol/L (21.0-32.0); CREATININE 0.66 mg/dL (0.55-1.02); EST CRCL DRUG DOSING (CG) 61.72 mL/min; POTASSIUM,K 3.7 mmol/L (3.5-5.1); PROTEIN TOTAL,TP 5.5 g/dL (6.4-8.2)
[2022-10-02] MEDS ORDERED: Benzonatate 100 MG Cap PO ONE (06:31)
[2022-10-02 07:28] VITALS: BP 139/95; PULSE 98
== END 2022-10-02 09:53 | disposition home or self-care (01) | DRG 690 ==
LOC: LB.MS 22:15
PROVIDERS: ADMIT Physician Assistant; ATTEND Physician Assistant
DX: N30.90 Cystitis, unspecified without hematuria (principal); E87.1 Hypo-osmolality and hyponatremia; E46 Unspecified protein-calorie malnutrition; I10 Essential (primary) hypertension; K21.9 Gastro-esophageal reflux disease without esophagitis; E87.6 Hypokalemia; E86.0 Dehydration; M81.0 Age-related osteoporosis without current pathological fracture; M19.90 Unspecified osteoarthritis, unspecified site; L89.301 Pressure ulcer of unspecified buttock, stage 1; D50.0 Iron deficiency anemia secondary to blood loss (chronic); I25.2 Old myocardial infarction; Z68.20 Body mass index [BMI] 20.0-20.9, adult; Z98.890 Other specified postprocedural states; Z79.899 Other long term (current) drug therapy; Z79.01 Long term (current) use of anticoagulants; Z87.81 Personal history of (healed) traumatic fracture; Z86.718 Personal history of other venous thrombosis and embolism
CPT/HCPCS: 36415; 80053; 84484; 85025; 99222; 99232; 99239; A9270-GY; J0696; J2765; J3490; J7030; Q0162

== ENCOUNTER 2022-10-27 12:32 | Inpatient (IN) | payer MEDICARE ==
[2022-10-27] MEDS ORDERED: Ondansetron 4 MG Tab.DIS PO PRN (17:20)
[2022-10-27] MEDS ORDERED: Sennosides/Docusate Sodium 50-8.6 MG Tab PO PRN (17:20)
[2022-10-27] MEDS ORDERED: traMADol 50 MG Tab PO PRN (17:20)
[2022-10-28] MEDS ORDERED: Metoprolol Tartrate 25 MG Tab PO SCH (08:00)
[2022-10-28] MEDS ORDERED: [UNRECOGNIZED DRUG - OTHER] PO SCH (08:00)
[2022-10-28] MEDS ORDERED: amLODIPine 5 MG Tab PO SCH (08:00)
[2022-10-28] MEDS ORDERED: Apixaban 5 MG Tab PO SCH (08:00)
[2022-10-28] MEDS ORDERED: FOLIC PO SCH (08:00)
[2022-10-28] MEDS ORDERED: MULTIVIT MIN PO SCH (08:00)
[2022-10-28] MEDS ORDERED: IRON PO SCH (08:00)
[2022-10-28] MEDS ORDERED: Potassium Chloride 10 MEQ Tab.ER PO SCH (08:00)
[2022-10-28] MEDS ORDERED: LUTEIN PO SCH (08:00)
[2022-10-28] MEDS: Ferrous Gluconate 324 MG Tab PO SCH (09:46)
[2022-10-28] MEDS: DULoxetine 20 MG Cap PO SCH (09:47)
[2022-10-28] MEDS: Pantoprazole 40 MG Tab.CR PO SCH (09:47)
[2022-10-28] MEDS: Apixaban 2.5 MG Tab PO SCH ×2 (10:06→19:22)
[2022-10-28] MEDS ORDERED: Tuberculin, PPD 5 Units/0.1 ML 1 ML MDV IDERM ONE (10:20)
[2022-10-28] MEDS ORDERED: Cholecalciferol (Vitamin D3) 2,000 Unit Cap PO SCH (12:00)
[2022-10-29] MEDS: Metoprolol Tartrate 25 MG Tab PO SCH (07:41)
[2022-10-29] MEDS: DULoxetine 20 MG Cap PO SCH (07:41)
[2022-10-29] MEDS: Apixaban 2.5 MG Tab PO SCH ×2 (07:41→19:40)
[2022-10-29] MEDS: Pantoprazole 40 MG Tab.CR PO SCH (07:41)
[2022-10-29] MEDS: Multivitamin, Childrens Tab.Chew PO SCH (07:41)
[2022-10-29] MEDS: Ferrous Gluconate 324 MG Tab PO SCH (07:41)
[2022-10-29] MEDS: Acetaminophen 325 MG Tab PO PRN (19:39)
[2022-10-30] MEDS: Acetaminophen 325 MG Tab PO PRN ×3 (05:36→19:01)
[2022-10-30] MEDS: Apixaban 2.5 MG Tab PO SCH ×2 (07:29→19:02)
[2022-10-30] MEDS: Ferrous Gluconate 324 MG Tab PO SCH (07:30)
[2022-10-30] MEDS: DULoxetine 20 MG Cap PO SCH (07:31)
[2022-10-30] MEDS: Pantoprazole 40 MG Tab.CR PO SCH (07:31)
[2022-10-30] MEDS: Multivitamin, Childrens Tab.Chew PO SCH (07:33)
[2022-10-30] MEDS: Metoprolol Tartrate 25 MG Tab PO SCH (08:03)
[2022-10-31] MEDS: DULoxetine 20 MG Cap PO SCH (08:04)
[2022-10-31] MEDS: Multivitamin, Childrens Tab.Chew PO SCH (08:04)
[2022-10-31] MEDS: Apixaban 2.5 MG Tab PO SCH ×2 (08:05→19:51)
[2022-10-31] MEDS: Pantoprazole 40 MG Tab.CR PO SCH (08:05)
[2022-10-31] MEDS: Ferrous Gluconate 324 MG Tab PO SCH (08:05)
[2022-10-31] MEDS: Metoprolol Tartrate 25 MG Tab PO SCH (09:16)
[2022-10-31] MEDS: Acetaminophen 325 MG Tab PO PRN (19:50)
[2022-10-31] MEDS: diphenhydrAMINE 25 MG Cap PO PRN (19:51)
[2022-11-01] MEDS: Apixaban 2.5 MG Tab PO SCH ×2 (07:23→19:47)
[2022-11-01] MEDS: Pantoprazole 40 MG Tab.CR PO SCH (07:23)
[2022-11-01] MEDS: DULoxetine 20 MG Cap PO SCH (07:24)
[2022-11-01] MEDS: Ferrous Gluconate 324 MG Tab PO SCH (07:24)
[2022-11-01] MEDS: Acetaminophen 325 MG Tab PO PRN ×2 (07:24→19:48)
[2022-11-01] MEDS: Metoprolol Tartrate 25 MG Tab PO SCH ×2 (07:24→12:59)
[2022-11-01] MEDS: Multivitamin, Childrens Tab.Chew PO SCH (07:24)
[2022-11-01] MEDS: diphenhydrAMINE 25 MG Cap PO PRN (19:48)
[2022-11-01] MEDS ORDERED: Zinc Oxide 20% Oint 56.7 GM Tube TOP PRN (19:51)
[2022-11-02] MEDS: Acetaminophen 325 MG Tab PO PRN ×2 (07:21→19:38)
[2022-11-02] MEDS: DULoxetine 20 MG Cap PO SCH (07:21)
[2022-11-02] MEDS: Multivitamin, Childrens Tab.Chew PO SCH (07:21)
[2022-11-02] MEDS: Ferrous Gluconate 324 MG Tab PO SCH (07:21)
[2022-11-02] MEDS: Pantoprazole 40 MG Tab.CR PO SCH (07:21)
[2022-11-02] MEDS: Metoprolol Tartrate 25 MG Tab PO SCH (07:21)
[2022-11-02] MEDS: Apixaban 2.5 MG Tab PO SCH ×2 (07:21→19:38)
[2022-11-02] MEDS: diphenhydrAMINE 25 MG Cap PO PRN (19:38)
[2022-11-03] MEDS: Ferrous Gluconate 324 MG Tab PO SCH (07:13)
[2022-11-03] MEDS: Multivitamin, Childrens Tab.Chew PO SCH (07:13)
[2022-11-03] MEDS: Pantoprazole 40 MG Tab.CR PO SCH (07:14)
[2022-11-03] MEDS: Apixaban 2.5 MG Tab PO SCH ×2 (07:14→19:59)
[2022-11-03] MEDS: DULoxetine 20 MG Cap PO SCH (07:14)
[2022-11-03] MEDS: Metoprolol Tartrate 25 MG Tab PO SCH (07:15)
[2022-11-03] MEDS: Acetaminophen 325 MG Tab PO PRN (07:43)
[2022-11-04] MEDS: Ferrous Gluconate 324 MG Tab PO SCH (07:49)
[2022-11-04] MEDS: Pantoprazole 40 MG Tab.CR PO SCH (07:49)
[2022-11-04] MEDS: Apixaban 2.5 MG Tab PO SCH ×2 (07:49→19:12)
[2022-11-04] MEDS: DULoxetine 20 MG Cap PO SCH (07:49)
[2022-11-04] MEDS: Multivitamin, Childrens Tab.Chew PO SCH (07:50)
[2022-11-04] MEDS: Metoprolol Tartrate 25 MG Tab PO SCH (07:50)
[2022-11-04] MEDS: diphenhydrAMINE 25 MG Cap PO PRN (19:12)
[2022-11-05] MEDS: Apixaban 2.5 MG Tab PO SCH ×2 (07:51→19:15)
[2022-11-05] MEDS: DULoxetine 20 MG Cap PO SCH (07:51)
[2022-11-05] MEDS: Multivitamin, Childrens Tab.Chew PO SCH (07:51)
[2022-11-05] MEDS: Metoprolol Tartrate 25 MG Tab PO SCH (07:52)
[2022-11-05] MEDS: Ferrous Gluconate 324 MG Tab PO SCH (07:53)
[2022-11-05] MEDS: Pantoprazole 40 MG Tab.CR PO SCH (07:53)
[2022-11-05] MEDS: diphenhydrAMINE 25 MG Cap PO PRN (19:15)
[2022-11-06] MEDS: Multivitamin, Childrens Tab.Chew PO SCH (07:25)
[2022-11-06] MEDS: Pantoprazole 40 MG Tab.CR PO SCH (07:25)
[2022-11-06] MEDS: Metoprolol Tartrate 25 MG Tab PO SCH (07:25)
[2022-11-06] MEDS: Ferrous Gluconate 324 MG Tab PO SCH (07:26)
[2022-11-06] MEDS: Apixaban 2.5 MG Tab PO SCH ×2 (07:26→19:42)
[2022-11-06] MEDS: DULoxetine 20 MG Cap PO SCH (07:26)
[2022-11-06] MEDS: Acetaminophen 325 MG Tab PO PRN (07:27)
[2022-11-06] MEDS: diphenhydrAMINE 25 MG Cap PO PRN (19:44)
[2022-11-07] MEDS: Apixaban 2.5 MG Tab PO SCH ×2 (07:05→19:45)
[2022-11-07] MEDS: DULoxetine 20 MG Cap PO SCH (07:05)
[2022-11-07] MEDS: Ferrous Gluconate 324 MG Tab PO SCH (07:06)
[2022-11-07] MEDS: Multivitamin, Childrens Tab.Chew PO SCH (07:06)
[2022-11-07] MEDS: Pantoprazole 40 MG Tab.CR PO SCH (07:06)
[2022-11-07] MEDS: Metoprolol Tartrate 25 MG Tab PO SCH (07:07)
[2022-11-08] MEDS: Pantoprazole 40 MG Tab.CR PO SCH (06:50)
[2022-11-08] MEDS: DULoxetine 20 MG Cap PO SCH (08:55)
[2022-11-08] MEDS: Apixaban 2.5 MG Tab PO SCH ×2 (08:55→19:27)
[2022-11-08] MEDS: Multivitamin, Childrens Tab.Chew PO SCH (08:55)
[2022-11-08] MEDS: Ferrous Gluconate 324 MG Tab PO SCH (09:09)
[2022-11-08] MEDS: Metoprolol Tartrate 25 MG Tab PO SCH (09:12)
[2022-11-08] MEDS: diphenhydrAMINE 25 MG Cap PO PRN (19:27)
[2022-11-08] MEDS: Acetaminophen 325 MG Tab PO PRN (19:27)
[2022-11-09] MEDS: Multivitamin, Childrens Tab.Chew PO SCH (07:20)
[2022-11-09] MEDS: DULoxetine 20 MG Cap PO SCH (07:21)
[2022-11-09] MEDS: Ferrous Gluconate 324 MG Tab PO SCH (07:21)
[2022-11-09] MEDS: Apixaban 2.5 MG Tab PO SCH ×2 (07:21→20:48)
[2022-11-09] MEDS: Pantoprazole 40 MG Tab.CR PO SCH (07:21)
[2022-11-09] MEDS: Metoprolol Tartrate 25 MG Tab PO SCH (07:22)
[2022-11-09 08:26] LABS: MAGNESIUM 1.9 mg/dL (1.8-2.4); PHOSPHORUS 4.1 mg/dL (2.5-4.9)
[2022-11-09] MEDS: Acetaminophen 325 MG Tab PO PRN (20:48)
[2022-11-10] MEDS: DULoxetine 20 MG Cap PO SCH (07:35)
[2022-11-10] MEDS: Multivitamin, Childrens Tab.Chew PO SCH (07:35)
[2022-11-10] MEDS: Apixaban 2.5 MG Tab PO SCH ×2 (07:35→19:14)
[2022-11-10] MEDS: Ferrous Gluconate 324 MG Tab PO SCH (07:36)
[2022-11-10] MEDS: Metoprolol Tartrate 25 MG Tab PO SCH (07:36)
[2022-11-10] MEDS: Pantoprazole 40 MG Tab.CR PO SCH (07:36)
[2022-11-10] MEDS: diphenhydrAMINE 25 MG Cap PO PRN (19:15)
[2022-11-10] MEDS: Acetaminophen 325 MG Tab PO PRN (19:15)
[2022-11-11] MEDS: Pantoprazole 40 MG Tab.CR PO SCH (07:35)
[2022-11-11] MEDS: Acetaminophen 325 MG Tab PO PRN ×2 (07:35→19:55)
[2022-11-11] MEDS: Apixaban 2.5 MG Tab PO SCH ×2 (07:35→19:55)
[2022-11-11] MEDS: Multivitamin, Childrens Tab.Chew PO SCH (07:36)
[2022-11-11] MEDS: Metoprolol Tartrate 25 MG Tab PO SCH (07:36)
[2022-11-11] MEDS: DULoxetine 20 MG Cap PO SCH (07:36)
[2022-11-11] MEDS: Ferrous Gluconate 324 MG Tab PO SCH (07:36)
[2022-11-11] MEDS: diphenhydrAMINE 25 MG Cap PO PRN (20:26)
[2022-11-12] MEDS: Apixaban 2.5 MG Tab PO SCH ×2 (07:32→19:38)
[2022-11-12] MEDS: Pantoprazole 40 MG Tab.CR PO SCH (07:32)
[2022-11-12] MEDS: Ferrous Gluconate 324 MG Tab PO SCH (07:32)
[2022-11-12] MEDS: DULoxetine 20 MG Cap PO SCH (07:32)
[2022-11-12] MEDS: Multivitamin, Childrens Tab.Chew PO SCH (07:33)
[2022-11-12] MEDS: Metoprolol Tartrate 25 MG Tab PO SCH (07:33)
[2022-11-12] MEDS: Acetaminophen 325 MG Tab PO PRN ×2 (07:34→19:38)
[2022-11-13] MEDS: Pantoprazole 40 MG Tab.CR PO SCH (07:26)
[2022-11-13] MEDS: Multivitamin, Childrens Tab.Chew PO SCH (07:26)
[2022-11-13] MEDS: Ferrous Gluconate 324 MG Tab PO SCH (07:26)
[2022-11-13] MEDS: DULoxetine 20 MG Cap PO SCH (07:26)
[2022-11-13] MEDS: Apixaban 2.5 MG Tab PO SCH ×2 (07:26→19:11)
[2022-11-13] MEDS: Metoprolol Tartrate 25 MG Tab PO SCH (07:26)
[2022-11-13] MEDS: Acetaminophen 325 MG Tab PO PRN (19:11)
[2022-11-13] MEDS: diphenhydrAMINE 25 MG Cap PO PRN (20:12)
[2022-11-14] MEDS: Metoprolol Tartrate 25 MG Tab PO SCH (07:08)
[2022-11-14] MEDS: Apixaban 2.5 MG Tab PO SCH (07:08)
[2022-11-14] MEDS: DULoxetine 20 MG Cap PO SCH (07:08)
[2022-11-14] MEDS: Multivitamin, Childrens Tab.Chew PO SCH (07:08)
[2022-11-14] MEDS: Ferrous Gluconate 324 MG Tab PO SCH (07:08)
[2022-11-14] MEDS: Pantoprazole 40 MG Tab.CR PO SCH (07:08)
[2022-11-14] MEDS: Acetaminophen 325 MG Tab PO PRN (07:13)
[2022-11-14 13:24] VITALS: BP 126/69; PULSE 94
== END 2022-11-14 13:14 | disposition home or self-care (01) | DRG 948 ==
LOC: LB.MS 16:08
PROVIDERS: ADMIT Physician Assistant; ATTEND Physician Assistant
DX: R53.1 Weakness (principal); E46 Unspecified protein-calorie malnutrition; I10 Essential (primary) hypertension; K21.9 Gastro-esophageal reflux disease without esophagitis; M19.90 Unspecified osteoarthritis, unspecified site; F41.9 Anxiety disorder, unspecified; F32.A Depression, unspecified; E55.9 Vitamin D deficiency, unspecified; Z68.22 Body mass index [BMI] 22.0-22.9, adult; I25.2 Old myocardial infarction; Z93.1 Gastrostomy status; Z79.01 Long term (current) use of anticoagulants; Z79.899 Other long term (current) drug therapy; Z87.440 Personal history of urinary (tract) infections
CPT/HCPCS: 36415; 83735; 84100; 86580; 92523-GN; 92526-GN; 92610-GN; 97110-GO; 97110-GP; 97116-GP; 97129-GN; 97130-GN; 97161-GP; 97165-GO; 97530-GO; 97530-GP; 97535-GO; 99305; 99309; 99316; A9270-GY; U0002

== ENCOUNTER 2023-01-02 14:09 | Emergency (ER) | payer MEDICARE ==
[2023-01-02] MEDS: Bacitracin Oint 1 GM U/D Packet TOP ONE (15:40)
[2023-01-02 16:29] VITALS: BP 171/92; PULSE 90
== END 2023-01-02 16:10 | disposition home or self-care (01) ==
LOC: LB.ED 14:09
DX: K94.23 Gastrostomy malfunction (principal); I25.10 Atherosclerotic heart disease of native coronary artery without angina pectoris; I10 Essential (primary) hypertension; I25.2 Old myocardial infarction; K21.9 Gastro-esophageal reflux disease without esophagitis; Z95.5 Presence of coronary angioplasty implant and graft; Z79.899 Other long term (current) drug therapy; Z88.5 Allergy status to narcotic agent
CPT/HCPCS: 99282

== ENCOUNTER 2023-11-03 14:19 | Emergency (ER) | payer MEDICARE ==
[2023-11-03] MEDS: Ondansetron 4 MG/2 ML SDV IVPUSH ONE (14:48)
[2023-11-03] MEDS: Sodium Chloride 0.9% 1,000 ML IV SCH (14:51)
[2023-11-03 15:07] LABS: BASOPHILS ABSOLUTE AUTO 0.02 K/uL (0.02-0.10); BASOPHILS PERCENT AUTO 0.2 % (0.0-0.5); EOSINOPHILS ABSOLUTE AUTO 0.01 K/uL (0.04-0.40); EOSINOPHILS PERCENT AUTO 0.1 % (1.0-5.0); HEMATOCRIT 40.2 % (37.0-47.0); HEMOGLOBIN 13.9 g/dL (11.5-16.5); LYMPHOCYTES ABSOLUTE AUTO 0.76 K/uL (1.50-4.00); LYMPHOCYTES PERCENT AUTO 8.1 % (20.0-40.0); MEAN CORPUSCULAR HEMOGLOBIN 33.7 pg (27.0-32.0); MEAN CORPUSCULAR HGB CONC 34.6 g/dL (31.0-35.0); MEAN CORPUSCULAR VOLUME 97 fL (76-96); MONOCYTES ABSOLUTE AUTO 0.63 K/uL (0.20-0.80); MONOCYTES PERCENT AUTO 6.7 % (3.0-10.0); NEUTROPHILS ABSOLUTE AUTO 7.93 K/uL (2.00-7.50); NEUTROPHILS PERCENT AUTO 84.9 % (45.0-70.0); PLATELET COUNT,PLT 173 K/uL (150-500); RED BLOOD CELL COUNT 4.13 M/uL (3.80-5.80); RED CELL DISTRIBUTION WIDTH 11.7 % (11.0-16.0); WHITE BLOOD CELL COUNT,WBC 9.4 K/uL (4.0-11.0)
[2023-11-03 15:27] LABS: PROTHROMBIN TIME 10.4 sec (9.0-11.5)
[2023-11-03 15:33] LABS: A/G RATIO 0.8 (0.8-2.0); ALBUMIN 3.3 g/dL (3.4-5.0); BILIRUBIN TOTAL 0.7 mg/dL (0.0-1.0); BUN/CREATININE RATIO 11.8 (6-25); CALCIUM 8.7 mg/dL (8.5-10.1); CARBON DIOXIDE,CO2 27.4 mmol/L (21.0-32.0); CREATININE 0.76 mg/dL (0.55-1.02); EST CRCL DRUG DOSING (CG) 53.72 mL/min; POTASSIUM,K 4.4 mmol/L (3.5-5.1); PROTEIN TOTAL,TP 7.4 g/dL (6.4-8.2)
[2023-11-03 15:43] LABS: INFLUENZA A NAA NEGATIVE (NEGATIVE); INFLUENZA B NAA NEGATIVE (NEGATIVE); RESPIRATORY SYNCYTIAL VIR NAA NEGATIVE (NEGATIVE)
[2023-11-03 15:49] LABS: CORONAVIRUS COVID-19 NAA NEGATIVE (NEGATIVE)
[2023-11-03] MEDS: HYDROmorphone 2 MG/ML Syringe IVPUSH ONE (15:50)
[2023-11-03 15:51] LABS: APPEARANCE,URINE CLEAR (CLEAR); COLOR,URINE YELLOW; LEUKOCYTE ESTERASE,URINE SMALL (NEGATIVE); OCCULT BLOOD,URINE TRACE-INTACT (NEGATIVE)
[2023-11-03 15:52] LABS: BILIRUBIN,URINE NEGATIVE (NEGATIVE); GLUCOSE,URINE NEGATIVE (NEGATIVE); KETONES,URINE NEGATIVE (NEGATIVE); NITRITE,URINE NEGATIVE (NEGATIVE); PROTEIN,URINE NEGATIVE (NEGATIVE); RBC,URINE 0-5 /HPF; SQUAMOUS EPITHELIAL CELLS,UR OCCASIONAL /HPF; UROBILINOGEN,URINE 0.2 E.U./dL (0.2-1.0); WBC,URINE 0-5 /HPF
[2023-11-03] MEDS: Labetalol 100 MG/20 ML MDV IVPUSH ONE (15:53)
[2023-11-03 18:34] VITALS: BP 134/74; PULSE 84
[2023-11-05] MEDS: HYDROmorphone 2 MG/ML Syringe ONE (08:52)
[2023-11-05] MEDS: Labetalol 100 MG/20 ML MDV ONE (08:52)
== END 2023-11-03 17:01 ==
LOC: LB.ED 14:19
DX: I61.2 Nontraumatic intracerebral hemorrhage in hemisphere, unspecified (principal); I10 Essential (primary) hypertension; I25.2 Old myocardial infarction; K21.9 Gastro-esophageal reflux disease without esophagitis; Z79.899 Other long term (current) drug therapy
CPT/HCPCS: 0241U; 36415; 70450; 80053; 81001; 82947; 85025; 85610; 85730; 87086; 93005; 96374; 96375; 99285; J1170; J1921; J2405; J7030

== ENCOUNTER 2023-11-07 16:35 | Inpatient (IN) | payer MEDICARE ==
[2023-11-07] MEDS ORDERED: Triamcinolone Acetonide 0.1% Crm 15 GM Tube TOP PRN (18:43)
[2023-11-07] MEDS: Simvastatin 20 MG Tab PO SCH (19:53)
[2023-11-07] MEDS: Metoprolol Tartrate 50 MG Tab PO SCH (19:54)
[2023-11-07] MEDS: diphenhydrAMINE 25 MG Cap PO PRN (19:54)
[2023-11-07] MEDS: Calcium Carbonate 500 MG Tab.Chew PO PRN (19:54)
[2023-11-07] MEDS: levETIRAcetam 500 MG Tab PO SCH (19:54)
[2023-11-07] MEDS: Cyclobenzaprine 5 MG Tab PO PRN (19:54)
[2023-11-07] MEDS: Losartan 50 MG Tab PO SCH (19:54)
[2023-11-08] MEDS: traMADol 50 MG Tab PO PRN (01:44)
[2023-11-08] MEDS ORDERED: cefTRIAXone 1 GM AdvVial IV SCH (08:00)
[2023-11-08] MEDS: Pantoprazole 40 MG Tab.CR PO SCH (08:02)
[2023-11-08] MEDS: Loratadine 10 MG Tab PO SCH (08:02)
[2023-11-08] MEDS: Ferrous Gluconate 324 MG Tab PO SCH (08:03)
[2023-11-08] MEDS: amLODIPine 10 MG Tab PO SCH (08:03)
[2023-11-08] MEDS: Multivitamin, Childrens Tab.Chew PO SCH (08:04)
[2023-11-08] MEDS: cefTRIAXone 1 GM in Sodium Chloride 0.9% 50 ML IV SCH (08:05)
[2023-11-08] MEDS: Acetaminophen 325 MG Tab PO PRN (08:25)
[2023-11-08] MEDS: cefTRIAXone 1 GM Vial IM SCH (11:27)
[2023-11-08] MEDS: Lidocaine 1% PF 2 ML SDV INJECT ONE (11:30)
[2023-11-09] MEDS: CARBIDOPA PO SCH (08:05)
[2023-11-09] MEDS: LEVODOPA PO SCH (08:05)
[2023-11-09] MEDS: Lidocaine 1% 10 ML MDV INJECT ONE (10:38)
[2023-11-09] MEDS: Ondansetron 4 MG Tab.DIS PO PRN (17:07)
[2023-11-10] MEDS: Ondansetron 4 MG Tab.DIS PO PRN (09:00)
[2023-11-11] MEDS: CARBIDOPA PO SCH (08:18)
[2023-11-11] MEDS: LEVODOPA PO SCH (08:18)
[2023-11-12] MEDS: Polyethylene Glycol 3350 Powder 17 GM Packet PO SCH (12:40)
[2023-11-15] MEDS: Metoclopramide 10 MG Tab PO SCH (11:12)
[2023-11-19] MEDS ORDERED: FLU (Flulaval Triv) 24-25(6MOS UP)/PF 45 MCG/0.5 ML Syringe IM ONE (12:52)
[2023-11-19] MEDS: FLU (Fluad Triv) TS24-25 (65UP)/MF59C/PF 45 MCG/0.5 ML Syringe IM ONE (13:23)
[2023-11-20] MEDS: Zinc Oxide 20% Oint 56.7 GM Tube TOP PRN (08:58)
[2023-11-28] MEDS: Metoclopramide 10 MG Tab ONE (13:01)
[2023-11-29] MEDS: Tuberculin, PPD 5 Units/0.1 ML 1 ML MDV IDERM ONE (14:20)
[2023-11-30 08:15] LABS: BASOPHILS ABSOLUTE AUTO 0.02 K/uL (0.02-0.10); BASOPHILS PERCENT AUTO 0.3 % (0.0-0.5); EOSINOPHILS ABSOLUTE AUTO 0.09 K/uL (0.04-0.40); EOSINOPHILS PERCENT AUTO 1.3 % (1.0-5.0); HEMATOCRIT 38.8 % (37.0-47.0); HEMOGLOBIN 12.7 g/dL (11.5-16.5); LYMPHOCYTES ABSOLUTE AUTO 1.54 K/uL (1.50-4.00); LYMPHOCYTES PERCENT AUTO 22.4 % (20.0-40.0); MEAN CORPUSCULAR HGB CONC 32.7 g/dL (31.0-35.0); MEAN CORPUSCULAR VOLUME 98 fL (76-96); MEAN PLATELET VOLUME 9.3 fL (6.0-10.0); MONOCYTES ABSOLUTE AUTO 0.73 K/uL (0.20-0.80); MONOCYTES PERCENT AUTO 10.6 % (3.0-10.0); NEUTROPHILS ABSOLUTE AUTO 4.49 K/uL (2.00-7.50); NEUTROPHILS PERCENT AUTO 65.4 % (45.0-70.0); PLATELET COUNT,PLT 246 K/uL (150-500); RED BLOOD CELL COUNT 3.97 M/uL (3.80-5.80); RED CELL DISTRIBUTION WIDTH 11.8 % (11.0-16.0); WHITE BLOOD CELL COUNT,WBC 6.9 K/uL (4.0-11.0)
[2023-11-30 09:19] LABS: ANION GAP 12.4 mmol/L (5.0-15.0); BUN/CREATININE RATIO 9.6 (6-25); CALCIUM 9.4 mg/dL (8.5-10.1); CARBON DIOXIDE,CO2 27.2 mmol/L (21.0-32.0); CREATININE 0.73 mg/dL (0.55-1.02); EST CRCL DRUG DOSING (CG) 55.93 mL/min; POTASSIUM,K 4.6 mmol/L (3.5-5.1)
[2023-12-01] MEDS: Aluminum Hydroxide/Magnesium Hydroxide/Simethicone Susp 30 ML Cup PO PRN (11:33)
[2023-12-01] MEDS ORDERED: Polyethylene Glycol 3350 Powder 17 GM Packet PO PRN (18:26)
[2023-12-01] MEDS: Simethicone 80 MG Tab.Chew PO PRN (19:22)
[2023-12-09] MEDS: Calcium Polycarbophil 625 MG Tab PO SCH (09:44)
[2023-12-09 20:23] LABS: APPEARANCE,URINE CLEAR (CLEAR); BILIRUBIN,URINE NEGATIVE (NEGATIVE); COLOR,URINE YELLOW; GLUCOSE,URINE NEGATIVE (NEGATIVE); KETONES,URINE NEGATIVE (NEGATIVE); LEUKOCYTE ESTERASE,URINE NEGATIVE (NEGATIVE); NITRITE,URINE NEGATIVE (NEGATIVE); OCCULT BLOOD,URINE NEGATIVE (NEGATIVE); PH,URINE 5.5 (5.0-8.0); PROTEIN,URINE NEGATIVE (NEGATIVE); UROBILINOGEN,URINE 0.2 E.U./dL (0.2-1.0)
[2023-12-09 20:24] LABS: CALCIUM OXALATE CRYSTALS,URINE FEW /HPF; RBC,URINE 0-5 /HPF; SQUAMOUS EPITHELIAL CELLS,UR MANY /HPF
[2023-12-12 07:09] VITALS: BP 148/69; PULSE 71
== END 2023-12-12 09:23 | disposition home or self-care (01) | DRG 947 ==
LOC: UNDOADMIN 17:00 → LB.MS 17:00
PROVIDERS: ADMIT Surgery; ATTEND Surgery
DX: R53.81 Other malaise (principal); I61.9 Nontraumatic intracerebral hemorrhage, unspecified; N30.00 Acute cystitis without hematuria; R53.1 Weakness; I25.2 Old myocardial infarction; H54.7 Unspecified visual loss; I10 Essential (primary) hypertension; K21.9 Gastro-esophageal reflux disease without esophagitis; F41.9 Anxiety disorder, unspecified; G89.29 Other chronic pain; M54.9 Dorsalgia, unspecified; M19.90 Unspecified osteoarthritis, unspecified site; Z95.5 Presence of coronary angioplasty implant and graft; Z88.5 Allergy status to narcotic agent; Z79.899 Other long term (current) drug therapy; Z96.659 Presence of unspecified artificial knee joint; Z96.649 Presence of unspecified artificial hip joint; Z98.890 Other specified postprocedural states
CPT/HCPCS: 36415; 73560-LT; 80048; 81001; 85025; 86580; 90653; 92507-GN; 92526-GN; 96125-GN; 97110-GO; 97110-GP; 97116-GP; 97162-GP; 97165-GO; 97530-GO; 97530-GP; 97535-GO; 99305; 99308; 99316; A9270-GY; G0008; J0696; J3490; Q0162

== ENCOUNTER 2024-11-23 17:39 | Emergency (ER) | payer MEDICARE ==
[2024-11-23 18:01] LABS: BASOPHILS ABSOLUTE AUTO 0.03 K/uL (0.02-0.10); BASOPHILS PERCENT AUTO 0.4 % (0.0-0.5); EOSINOPHILS ABSOLUTE AUTO 0.11 K/uL (0.04-0.40); EOSINOPHILS PERCENT AUTO 1.4 % (1.0-5.0); LYMPHOCYTES ABSOLUTE AUTO 2.02 K/uL (1.50-4.00); LYMPHOCYTES PERCENT AUTO 26.6 % (20.0-40.0); MEAN PLATELET VOLUME 9.3 fL (6.0-10.0); MONOCYTES ABSOLUTE AUTO 0.68 K/uL (0.20-0.80); MONOCYTES PERCENT AUTO 8.9 % (3.0-10.0); NEUTROPHILS ABSOLUTE AUTO 4.76 K/uL (2.00-7.50); NEUTROPHILS PERCENT AUTO 62.7 % (45.0-70.0); PLATELET COUNT,PLT 220 K/uL (150-500); RED BLOOD CELL COUNT 3.90 M/uL (3.80-5.80); RED CELL DISTRIBUTION WIDTH 13.5 % (11.0-16.0); WHITE BLOOD CELL COUNT,WBC 7.6 K/uL (4.0-11.0)
[2024-11-23 18:08] VITALS: PULSE 80
[2024-11-23 18:18] LABS: APPEARANCE,URINE CLEAR (CLEAR); GLUCOSE,URINE NEGATIVE (NEGATIVE); OCCULT BLOOD,URINE NEGATIVE (NEGATIVE)
[2024-11-23 18:26] LABS: A/G RATIO 0.7 (0.8-2.0); ALANINE AMINOTRANSFERASE,ALT 7.0 U/L (12-78); ASPARTATE AMNIOTRANSFERASE,AST 42.0 U/L (15-37); BILIRUBIN TOTAL 0.5 mg/dL (0.0-1.0); BLOOD UREA NITROGEN,BUN 11.0 mg/dL (8-26); CARBON DIOXIDE,CO2 23.4 mmol/L (21.0-32.0); CHLORIDE,CL 102.0 mmol/L (98-107); CREATININE 0.99 mg/dL (0.55-1.02); EST CRCL DRUG DOSING (CG) 40.62 mL/min; ESTIMATED GFR 59.0 mL/min (>60); GLUCOSE RANDOM 92.0 mg/dL (74-100); POTASSIUM,K 3.7 mmol/L (3.5-5.1); PROTEIN TOTAL,TP 7.1 g/dL (6.4-8.2); SODIUM,NA 138.0 mmol/L (136-145)
[2024-11-23 18:27] LABS: INR 1.1 (1.0-3.5); PTT,PARTIAL THROMBOPLSTIN TIME 24.9 SECONDS (24.4-33.2)
[2024-11-23] MEDS ORDERED: Sodium Chloride 0.9% 10 ML Syringe FLUSH PRN (18:33)
[2024-11-23 19:22] VITALS: BP 151/82
== END 2024-11-23 18:35 ==
LOC: LB.ED 17:39
DX: I63.9 Cerebral infarction, unspecified (principal); R29.810 Facial weakness; I10 Essential (primary) hypertension; I25.2 Old myocardial infarction; K21.9 Gastro-esophageal reflux disease without esophagitis; M19.90 Unspecified osteoarthritis, unspecified site; Z79.899 Other long term (current) drug therapy; Z88.5 Allergy status to narcotic agent
CPT/HCPCS: 36415; 51702; 70450; 80053; 81003; 82947; 84484; 85025; 85610; 85730; 93005; 99285; A9270

== ENCOUNTER 2024-12-09 10:11 | Inpatient (IN) | payer MEDICARE ==
[2024-12-09 16:17] LABS: MEAN PLATELET VOLUME 9.4 fL (6.0-10.0); PLATELET COUNT,PLT 262.0 K/uL (150-500); RED BLOOD CELL COUNT 4.13 M/uL (3.80-5.80); RED CELL DISTRIBUTION WIDTH 13.1 % (11.0-16.0); WHITE BLOOD CELL COUNT,WBC 14.1 K/uL (4.0-11.0)
[2024-12-09 16:32] LABS: BLOOD UREA NITROGEN,BUN 7.0 mg/dL (8-26); CARBON DIOXIDE,CO2 29.9 mmol/L (21.0-32.0); CHLORIDE,CL 100.0 mmol/L (98-107); CREATININE 0.81 mg/dL (0.55-1.02); EST CRCL DRUG DOSING (CG) 49.64 mL/min; ESTIMATED GFR 76.0 mL/min (>60); GLUCOSE RANDOM 104.0 mg/dL (74-100); POTASSIUM,K 3.7 mmol/L (3.5-5.1); SODIUM,NA 131.0 mmol/L (136-145)
[2024-12-09] MEDS: Tuberculin, PPD 5 Units/0.1 ML 1 ML MDV IDERM ONE (19:49)
[2024-12-10] MEDS: Multivitamin, Childrens Tab.Chew PO SCH (07:03)
[2024-12-10] MEDS ORDERED: Non-Formulary Medication 1 Each (Omeprazole [Omeprazole] 40 MG Cap.Cr) PO SCH (08:00)
[2024-12-11 09:23] LABS: APPEARANCE,URINE TURBID (CLEAR)
[2024-12-11 09:25] LABS: SQUAMOUS EPITHELIAL CELLS,UR RARE /HPF
[2024-12-11] MEDS: Lactobacillus Acidophilus/Lactobacillus Sporogenes (Probiotic) Tab PO SCH (10:32)
[2024-12-11 10:39] LABS: MEAN PLATELET VOLUME 10.0 fL (6.0-10.0); PLATELET COUNT,PLT 248.0 K/uL (150-500); RED BLOOD CELL COUNT 4.17 M/uL (3.80-5.80); RED CELL DISTRIBUTION WIDTH 13.0 % (11.0-16.0); WHITE BLOOD CELL COUNT,WBC 14.1 K/uL (4.0-11.0)
[2024-12-11 10:48] LABS: BLOOD UREA NITROGEN,BUN 9.0 mg/dL (8-26); CARBON DIOXIDE,CO2 23.4 mmol/L (21.0-32.0); CHLORIDE,CL 101.0 mmol/L (98-107); CREATININE 0.95 mg/dL (0.55-1.02); EST CRCL DRUG DOSING (CG) 42.33 mL/min; ESTIMATED GFR 62.0 mL/min (>60); GLUCOSE RANDOM 109.0 mg/dL (74-100); POTASSIUM,K 3.8 mmol/L (3.5-5.1); SODIUM,NA 131.0 mmol/L (136-145)
[2024-12-14] MEDS: Sennosides/Docusate Sodium 50-8.6 MG Tab PO PRN (14:52)
[2024-12-22 07:27] VITALS: BP 133/89
[2024-12-22 07:41] VITALS: PULSE 84
[2024-12-23] MEDS ORDERED: Tuberculin, PPD 5 Units/0.1 ML 1 ML MDV IDERM ONE (20:00)
== END 2024-12-22 13:00 | disposition home or self-care (01) | DRG 948 ==
LOC: UNDOADMIN 12:10 → LB.MS 12:10
PROVIDERS: ADMIT Surgery; ATTEND Surgery
DX: R53.81 Other malaise (principal); H54.7 Unspecified visual loss; K21.9 Gastro-esophageal reflux disease without esophagitis; M54.9 Dorsalgia, unspecified; G89.29 Other chronic pain; F41.9 Anxiety disorder, unspecified; M19.90 Unspecified osteoarthritis, unspecified site; E55.9 Vitamin D deficiency, unspecified; G20.A1 Parkinson's disease without dyskinesia, without mention of fluctuations; E61.1 Iron deficiency; I10 Essential (primary) hypertension; I25.2 Old myocardial infarction; Z95.5 Presence of coronary angioplasty implant and graft; Z86.711 Personal history of pulmonary embolism; Z79.899 Other long term (current) drug therapy; Z88.8 Allergy status to other drugs, medicaments and biological substances; Z86.73 Personal history of transient ischemic attack (TIA), and cerebral infarction without residual deficits; Z98.49 Cataract extraction status, unspecified eye; Z98.890 Other specified postprocedural states
CPT/HCPCS: 36415; 80048; 81001; 83735; 85027; 86580; 87086; 97110-GO; 97110-GP; 97116-GP; 97161-GP; 97166-GO; 97530-GO; 97530-GP; 97535-GO; 99305; 99308; 99315; A9270-GY; J1650